=== PATIENT | female | born 1965 | race Caucasian/White ===

== ENCOUNTER 2017-08-03 09:55 | Outpatient (RCR) | payer OTHER, SELFPAY ==
--- NOTE | 2017-08-03 11:09 | HP.PTEVAL_ITS ---
Patient's Visit Information RAMSEY RODRIGUEZ is a 52 year old F referred to Physical Therapy by MD QUITA Mcfadden with a diagnosis of SCIATICA. Date of Evaluation: 08/03/17 Physical Therapist: Sapna Redman - Visit Plan Frequency: 2-3x /Week Duration: 4-6 Weeks Plan: AQUATIC THERAPY. POSTURE CORRECTION/STRENGTHENING, INSTRUCTION IN APPROPRIATE BODY MECHANICS AND ACTIVITY MODIFICATIONS. DLS STARTING WITH A NEUTRAL SPINE PROGRESSING ROM TOLERATED. DAKOTA LE ROM, STRETCHING AND STRENGTHENING. HEP INSTRUCTION. - Subjective Subjective: Work/Leisure: UNEMPLOYEED. HAS NEVER REALLY HAD A JOB. Disability : NO. Present symptoms: DAKOTA LOW BACK, DAKOTA HIPS, DAKOTA THIGHS, DAKOTA LEGS AND DAKOTA FOOT PAIN. ALSO NUMBNESS AND TINGLING IN THE LE'S. Present since: CHRONIC LOW BACK PAIN WITH LEG SX'S STARTING ABOUT A YEAR AGO. Pain Scale: WORST 10/10 , LEAST 5/10. Currently: 810. Commenced as a result of: NO APPARENT REASON FOR LOW BACK BUT LOWER LEG AND FOOT SX'S STARTED WITH CHEMOTHERAPY AROUND 2014. Symptoms at onset: LOW BACK. Worse: PATIENT ISN'T SURE. Better: GABAPENTEN. Disturbed sleep: YES. Previous history/Previous treatment: NO BACK SURGERY. NO INJECTIONS. PT HERE FOR RIGHT SCIATICA INI THE PAST. LONG HISTORY OF CHIROPRACTIC TREATMENTS SINCE AT LEAST 2014. Coughing/sneezing/ straining: NEGATIVE. Gait: DIFFICULTY WITH GAIT DUE TO PAIN BUT NOT USING ANY ASSISTIVE DEVICES CURRENTLY. Difficulty initiating urinatin: NO. Accidents: FALLS 2014 AND SEPTEMBER 2016 - NO FRACTURES. Unexplained weight loss: NO. Imaging: LUMBAR X-RAY - DDD ESPECIALLY AT L5S1. PMH: NIDDM - NOT CONTROLLED CURRENTLY. UTERINE CANCER 2014 TREATED WITH SURGERY, RADIATION AND CHEMOTHERAPY. CURRENTLY CANCER FREE FAR PATIENT KNOWS FROM HER LAST CAT SCAN. HTN. CORTISONE INJECTION TO LEFT SHOULDER 2016. NEUROPATHY. DEPRESSION /ANXIETY? OTHER: LIVES WITH AND TWO SON'S THAT ARE 24 AND 28 YEARS OLD. PATIENT REPORTS SHE TRIED WATER PT BEFORE BUT AT THE TIME SHE COULDN'T FINISH BECAUSE IT WAS JUST TOO MUCH FOR HER AFTER THE CANCER TREATMENTS. SHE STATES SHE THINKS SHE COULD TOLERATE IT BETTER NOW BUT IS AFRAID OF IT BEING TOO TIRING. SOCIAL: HAS NOT BEEN ABLE TO GET HER GED. CAN READ AND WRITE. - Objective Sitting Posture: POOR. Standing Posture: POOR. Lordosis: REDUCED. Lateral shift: NO. Relevant shift: N/A. Active Correction of posture: NE. Other Observations: SLOW ANTALGIC INDEP GAIT INTO PT WITHOUT ANY ASSISTIVE DEVICES. UNABLE TO TRANSFER FROM SIT TO STAND WITHOUT UE ASSIST. PATIENT REPORTS SHE HAS A 4 WHEELED WALKER IN THE CAR TO USE NEEDED. PATIENT IS ONLY ABLE TO SLS ON EACH LEG FOR ABOUT 5 SEC WITHOUT UE ASSIST. Motor deficit: DAKOTA LE'S GROSSLY 4-/5 WITH MMT. Sensory deficit: DAKOTA LE LIGHT TOUCH SENSATION APPEARS INTACT AND SYMMETRICAL BUT FEET NT. NEUROPATHY. ROM deficit: DAKOTA LE'S WFL. Reflexes: UNABLE TO ELICIT DAKOTA LE DTR'S. Dural Signs: NEGATIVE. Lumbar mvmt loss: flex - MOD. ext - MOD. R SG - CRUZ. L SG - CRUZ. PATIENT HAS C/O BACK AND LEG PAIN THROUGHOUT TESTING BUT NOTHING ACUTELY INCREASES IT. Core strength: POOR. Palpation: MILD TENDERNESS WITH PALPATION OF LOWER LUMBAR SPINE. - Goals Goal 1:: DECREASE C/O LBP Goal Time Frame: 4-6 Weeks Goal 2:: IMPROVE BENDING, SITTING, STANDING, WALKING, LIFTING, ADL AND SLEEP FUNCTION Goal Time Frame: 4-6 Weeks Goal 3:: INSTRUCT IN PROPHYLAXIS Goal Time Frame: 4-6 Weeks - Rehabilitation Potential Rehabilitation Potential: Fair - Anticipated Interventions Patient/Client Instruction: Educate patient on: Condition, Plan of Care, Risk Factors, Benefits of Fitness Program For the Purpose of:: To improve self management Therapeutic Exercise to Include: Strength training, Balance training, Body mechanics, Postural training, Flexibilty training, In an aquatic setting, Dynamic Lumbar Stabilization For the Purpose of:: To improve ability of physical actions for home/community/ work/leisure Thank you for the opportunity to evaluate your patient. For Medicare and Medicare HMO plans, please review the plan of care and approve it. It will need to be FAXED BACK to us at [phone] for Medicare purposes. Please let me know if there are questions or concerns regarding this plan of care. Physician Signature: Date:
--- NOTE | 2017-09-20 09:55 | HP.PTDCNRP_ITS ---
HP - Discharge Summary (1) - Patient Information RAMSEY RODRIGUEZ was seen in my office for initial evaluation on 08/03/17. The following Plan of Care was established for this patient: Initial Frequency: 2-3x /Week Initial Duration: 4-6 Weeks - Anticipated Interventions Patient/Client Instruction: Educate patient on: Condition, Plan of Care, Risk Factors, Benefits of Fitness Program For the Purpose of:: To improve self management Therapeutic Exercise to Include: Strength training, Balance training, Body mechanics, Postural training, Flexibilty training, In an aquatic setting, Dynamic Lumbar Stabilization For the Purpose of:: To improve ability of physical actions for home/community/ work/leisure This patient was last seen in our office 08/03/17. Pertinent comments regarding their Physical therapy will appear below: This patient has not returned to Physical Therapy and is appropriate to return to MD for further follow-up as needed. At this point I will be discontinuing this patient from physical therapy. I would be happy to see this patient again in the future if found appropriate by the physician. Thank you! Sapna Redman
== END 2017-08-03 19:00 | disposition home or self-care (01) ==
LOC: PT 09:55
PROVIDERS: Family Provider Internal Medicine; PCP Internal Medicine; Visit Provider Internal Medicine
DX: M54.30 Sciatica, unspecified side (principal)
CPT/HCPCS: 97162; 97530

== ENCOUNTER → 2017-12-08 11:16 | Outpatient (CLI) | payer OTHER, SELFPAY ==
[2017-12-08 12:19] LABS: Microalbumin,Random Urine 8.9 mg/L (NO RANGE EST.); Microalbumin:Creatinine Ratio 5.8 mg/g CRE (<30 mg/g CRE)
[2017-12-08 12:23] LABS: Cholesterol 174 mg/dL (200); High Density Lipoprotein 46 mg/dL; Triglycerides 96 mg/dL; Very Low Density Lipoprotein 19 mg/dL (5-40)
[2017-12-08 12:28] LABS: Hemoglobin A1c 8.5 % (4.2-6.3)
== END ==
LOC: LAB 11:21
PROVIDERS: Family Provider Internal Medicine; PCP Internal Medicine; Visit Provider Internal Medicine
DX: E11.69 Type 2 diabetes mellitus with other specified complication (principal); E66.9 Obesity, unspecified
CPT/HCPCS: 36415; 80061; 82043; 82570; 83036

== ENCOUNTER → 2018-01-04 12:24 | Outpatient (CLI) | payer OTHER, SELFPAY ==
--- NOTE | 2018-01-04 12:30 | RAD_ITS ---
STUDY: X-RAY CHEST REASON FOR EXAM: Female, 52 years old. Pain in the chest. TECHNIQUE: Frontal and lateral views of the chest. COMPARISON: None. FINDINGS: Elevated right hemidiaphragm. Lungs otherwise normal volume. Lungs are clear. No infiltrates or effusions. Normal size heart. Normal mediastinum and jennifer. Normal visualized pulmonary arteries. Normal visualized aortic arch and descending thoracic aorta. The visualized bones and joints show degenerative changes. There is no demonstrated abnormality of the visualized soft tissue structures of the upper abdomen. RAD/Chest PA and Lateral IMPRESSION: Normal x-ray examination of the chest. Electronically Signed: Russel Kay MD at 13:52 EDT , Service support ,
== END ==
PROVIDERS: Family Provider Internal Medicine; PCP Internal Medicine; Visit Provider Obstetrics & Gynecology
DX: M19.90 Unspecified osteoarthritis, unspecified site (principal)
CPT/HCPCS: 71046

== ENCOUNTER → 2018-01-17 08:05 | Outpatient (CLI) | payer OTHER, SELFPAY ==
--- NOTE | 2018-01-17 08:06 | BI_ITS ---
MAMMOGRAPHY - BILATERAL SCREENING REASON FOR EXAM: Female, 52 years old. Routine annual screening examination. PERTINENT HISTORY: Aunt with breast cancer. Occasional axillary pain. TECHNIQUE: Digital bilateral breast zainab (3D mammographic acquisition) in the CC and MLO projections. 2-D mediolateral oblique (MLO) and craniocaudad (CC) views of both breasts were obtained. CAD: Full Field Digital Mammography with Computer Added Detection was performed. COMPARISON: Comparison is made with prior outside examination dated September 30, 2016. FINDINGS: Breast Composition: The breasts are almost entirely fatty. There are no dominant masses or suspicious calcifications. Stable appearance of the benign appearing bilateral axillary lymph nodes. No other significant abnormalities are identified. There has been no significant change since the prior study. BI/SCREENING MAMM (CAD), BILAT IMPRESSION: Stable bilateral screening mammogram. Yearly follow-up mammogram recommended. (A) ASSESSMENT CATEGORY: BIRADS Category 2: Benign. A letter regarding these results will be sent to the patient by the facility within 30 days. Approximately 10% of breast cancers are not detected by mammography. A normal mammogram should not delay biopsy of a clinically suspicious abnormality. [id number] Electronically Signed: Rogers Harkins MD at 10:45 EDT Tel [phone], Service support ,
== END ==
PROVIDERS: Family Provider Internal Medicine; PCP Internal Medicine; Visit Provider Obstetrics & Gynecology
DX: Z12.31 Encounter for screening mammogram for malignant neoplasm of breast (principal)
CPT/HCPCS: 77063; 77067

== ENCOUNTER → 2018-02-16 08:01 | Outpatient (CLI) | payer OTHER, SELFPAY ==
--- NOTE | 2018-02-16 08:03 | VDLE_ITS ---
Reason For Study: Bilateral leg swelling and pain, varicose veins. RIGHT LEFT GSV is normal. GSV is normal. CFV is compressible, spontaneous, phasic, CFV is compressible, spontaneous, phasic, competent and demonstrates normal competent, and demonstrates normal augmentation. augmentation. FV is compressible, spontaneous, phasic, FV is compressible, spontaneous, phasic, competent and demonstrates normal competent and demonstrates normal augmentation. augmentation. POP V is compressible, spontaneous, phasic, POP V is compressible, spontaneous, phasic, competent and demonstrates normal competent and demonstrates normal augmentation. augmentation. T/P Trunk is compressible. T/P Trunk is compressible. PTV is compressible. PTV is compressible. RT PerV is compressible. LT PerV is compressible. Varocosities are compressible. Varocosities are compressible. Procedure Exam performed in department. The exam was diagnostic. A preliminary report was called and/or faxed to Jorge Rodriguez - MELE @ [phone] @ 9 am. Interpretation Summary Deep veins of the lower extremities are bilaterally patent and compressible segmentally. There is no evidence of deep vein thrombosis on either side. Valvular competence appears intact within the proximal deep venous systems bilaterally. The greater saphenous veins appear bilaterally patent and compressible segmentally. Compressible varicosities are noted in the lower extremities bilaterally. Ordering Physician: Jorge Rodriguez Referring Physician: Naomie Clarke Performed By: Candy Summers, ANTHONYCS, RVT
== END ==
LOC: CVS 08:01
PROVIDERS: Family Provider Internal Medicine; PCP Internal Medicine; Visit Provider Nurse Practitioner Family
DX: I89.0 Lymphedema, not elsewhere classified (principal); I83.813 Varicose veins of bilateral lower extremities with pain; R09.89 Other specified symptoms and signs involving the circulatory and respiratory systems
CPT/HCPCS: 93922; 93970

== ENCOUNTER → 2018-04-10 08:14 | Outpatient (CLI) | payer MEDICAID, SELFPAY ==
[2018-04-10 11:42] LABS: Hemoglobin A1c 7.1 % (4.2-6.3)
[2018-04-10 12:13] LABS: Anion Gap 11 (5-15); BUN 12 mg/dL (7-18); BUN/Creat Ratio 21.5 RATIO (10-20); Calcium,Total 9.2 mg/dL (8.5-10.1); Chloride 96 mmol/L (98-107); Creatinine, Serum 0.56 mg/dL (0.55-1.02); EST Glomerular Filtration Rate 121 mL/min (>60); Est Glom Filt Rate - Afr Amer 146 mL/min (>60); Glucose 99 mg/dL (74-106); Potassium 3.4 mmol/L (3.5-5.1); Sodium Level 138 mmol/L (136-145)
== END ==
PROVIDERS: Family Provider Internal Medicine; PCP Internal Medicine; Visit Provider Internal Medicine
DX: I10 Essential (primary) hypertension (principal); E11.9 Type 2 diabetes mellitus without complications
CPT/HCPCS: 36415; 80048; 83036

== ENCOUNTER 2018-09-11 08:10 | Day surgery (SDC) | payer MEDICAID, SELFPAY ==
[2018-06-26 11:24] VITALS: BMI 30.7
[2018-09-11 08:32] VITALS: BP 142/92; PULSE 87; RESP 14; TEMP 37.2; O2SAT 100; BMI 31.2
[2018-09-11 08:57] LABS: Bedside Glucose 128 mg/dL (70-110)
--- NOTE | 2018-09-11 09:05 | H&P.OPEN ---
History of Present Illness Date of Admission: 09/11/18 The patient is a 53 year old F here for screening colonoscopy. She has never had a screening colonoscopy in the past. She reports that she does have a history of uterine cancer. She does not have any family history of colon cancer. She does not report any abdominal pain or blood in her stool. She has had no weight loss. Past Medical/Surgical History - Planned Operation Planned Operative Procedure/s: CSCOPE OPEN ACCESS Date of Operative Procedure: 09/11/18 Permit Signed: No S.O.S: No Is This Patient Having a Total Joint: No - Previous Hospitalizations/Surgeries HX Hospitalizations: No HX of Surgeries: HYSTERECTOMY 2014. D&C X2 Any Problems With Anesthesia: No You/Your Family Experience Fever (Hyperthermia) With Anes: No Cholinesterase deficiency: No - Cardiovascular Hx Chest Pain within Last 2 months: No Hx of Irregular Heartbeat and/or Afib: No Hx Heart Attack: No Hx Congestive Heart Failure: No Hx Rheumatic Fever: No Hx Hypertension: Yes - NO BP MEDS SINCE 03/2018. STARTED ON ENALIPRIL FOR KDINEY PROCTECTION Hx Internal Defibrillator: No Hx Pacemaker: No Hx Cardiac Catheterization: No Hx Cardiac Surgery/Stents/Etc.: No Hx Stress Test: No HX Edema: Yes - RIGHT ANKLE PRN Hx Pain in Legs when Walking/Leg Cramps: Yes - NEUROPATHY FEET - Respiratory Chronic Cough: No HX of Shortness of Breath: No - UNABLE TO WALK STAIRS/SOB WITH EXERTION Hoarseness: No Hx Chronic Obstructive Pulmonary Disease (COPD): No Hx Asthma: No Hx Emphysema: No Hx Sleep Apnea: No Hx Oxygen Use at Home: No Hx Respiratory Tract Infection/Cold (presently): No Do You Snore Loudly (louder than talking or can be heard): No Do You Often Feel Tired/ Fatigued/ Sleepy Dring Daytime?: Yes Has Anyone Observed You Stop Breathing During Sleep?: No Result (for STOP score): Positive Hx Smoking: No Smoking Status: Never smoker - Gastrointestinal Hx Gastroesophageal Reflux: No Hx Gastrointestinal Disorders: No Hx Gastrointestinal Bleed: No Hx Ulcer: No Hx Hiatal Hernia: No Difficulty Chewing/Swallowing: No Recent Onset of Swallowing Problems: No Special diet followed at home: Yes - ADA Hx Unplanned Weight Loss of 20#: No HX Unplanned Weight Gain of 20#: No - Neurological Hx Seizures: No HX Syncope/Blackout Spells/Unconsciousness: Yes - 09/2016 FELL AND LOC. RECENT SYNCOPE WITH HYPOTENSION Hx CVA/Stroke: No Hx Transient Ischemic Attacks (TIA): No Hx Multiple Sclerosis: No Hx Parkinson's Disease: No Hx Head/Neck Injury: No Hx Headaches: Yes - OCC SINCE CHEMO Hx Back Injury/Pain: Yes - OCC BACK PAIN/STATES UNSTEADY GAIT/BALANCE ISSUES AT TIMES Recent Onset of Speech Difficulty: No - STUTTERING Restless Legs: No Does patient have nerve stimulator: No Patient instructed to have device shut off: No Rep notified?: No - Blood Disorder Hx Leukemia: No Bleeding Tendencies: No Hx Deep Vein Thrombosis: No Hx High Cholesterol: No Blood Transmitted Disease: No Hx Hepatitis: No Hx Cirrhosis: No Hx Anemia: No Hx Blood Disorders: No - Reproduction : No Is Patient Lactating: No Hx Hysterectomy: Yes Hx Tubal Ligation: No Are You Post Menopause: No - Genitourinary Hx Renal Disease: No Hx Dialysis: No - Musculoskeletal Hx Arthritis: Yes Hx Rheumatoid Arthritis: No Hx Gout: No Recent Onset of an Orthopedic Problem: No - Endocrine Hx Diabetes: Yes Insulin: No Thyroid Disease: No Hx Steroid Therapy: No - Psycho/Social Hx Substance Use: No Hx Alcohol Use: No Hx Anxiety: Yes - NO MED Hx Depression: Yes - NO MED Hx Dementia: No - Miscellaneous Hx Cancer: Yes - ovarian/CHEMO LAST 2015/RADIATION Recent Exposure to Contagious Disease: No Active MRSA: No Hx of C-Diff: No Any Loose Teeth: No Additional information pertinent to anesthesia:: . Allergies No Known Allergies Allergy (Verified 06/26/18 11:21) - Discharge Is Pt Admitted From a Halfway, or a Assisted: No Who Could Help: FAMILY After D/C, Where Do you Plan to Go: Return Home - Physical Exam General: Alert, Oriented x3 Lungs: Normal air movement Cardiovascular: Regular rate Abdomen: Soft, Non Tender, Non-Distended Vital Signs Temp Pulse Resp BP Pulse Ox 98.9 F 87 14 142/92 H 100 09/11/18 08:32 09/11/18 08:32 09/11/18 08:32 09/11/18 08:32 09/11/18 08:32 Oxygen Delivery Method Room Air Weight: 193 lb 12.581 oz Body Mass Index (BMI) 31.2 POC Glucose 09/11/18 08:42 POC Glucose 128 H Assessment/Plan All Active Problems (Last Reviewed 06/26/18 @ 11:23 by Aurelia Hurst) Folliculitis (Acute) 53-year-old female for screening colonoscopy I explained endoscopy in detail to the patient. I explained the risks including but not limited to stroke or heart attack with anesthesia, perforation of the GI tract, bleeding, infection. I explained that any of these could necessitate further emergency surgery. The patient understands and all questions were answered sufficiently. The patient wishes to proceed with procedure. Kana Braun MD Pager: [facility] [address] [place] [address], [address] [place] [address] Office: Surgery Risks - Colonoscopy Risks Include but are not Limited To: Risks include but are not limited to: Bleeding, perforation requiring further surgery, inability to complete colonoscopy requiring barium enema.
[2018-09-11 09:45] VITALS: BP 119/76; BP 142/92; PULSE 83; RESP 16; TEMP 36.2; O2SAT 96
--- NOTE | 2018-09-11 09:45 | OP.ENDO_ITS ---
Patient Name: Joyce Quick Procedure Date: 09/11/2018 9:14 AM Date of : 1965 Age: 53 Procedure: Colonoscopy Indications: Screening for colorectal malignant neoplasm Providers: Kana Braun MD Medicines: Monitored Anesthesia Care Patient Profile: This is a 53 year old female. Refer to note in patient chart for documentation of history and physical. Last Colonoscopy: none. The patient's first colonoscopy is today. Complications: No immediate complications. Estimated blood loss: None. Procedure: Pre-Anesthesia Assessment: - Prior to the procedure, a History and Physical was performed, and patient medications and allergies were reviewed. The patient's tolerance of previous anesthesia was also reviewed. The risks and benefits of the procedure and the sedation options and risks were discussed with the patient. All questions were answered, and informed consent was obtained. Prior Anticoagulants: The patient has taken no previous anticoagulant or antiplatelet agents. ASA Grade Assessment: I - A normal, healthy patient. After reviewing the risks and benefits, the patient was deemed in satisfactory condition to undergo the procedure. After I obtained informed consent, the scope was passed under direct vision. Throughout the procedure, the patient's blood pressure, pulse, and oxygen saturations were monitored continuously. The pediatric colonoscope was introduced through the anus and advanced to the cecum, identified by appendiceal orifice and ileocecal valve. The colonoscopy was performed without difficulty. The patient tolerated the procedure well. The quality of the bowel preparation was good. Scope In: 9:24:53 AM Scope Withdrawal Time 0 hours 6 minutes 8 seconds Scope Out: 9:39:33 AM Total Procedure Duration Time 0 hours 14 minutes 40 seconds Findings: The exam was otherwise without abnormality on direct and retroflexion views. There was some post-radiation changes of the rectum. Impression: - The examination was otherwise normal on direct and retroflexion views. - No specimens collected. Recommendation: - Discharge patient to home. - Resume previous diet. - Continue present medications. - Repeat colonoscopy in 10 years for screening purposes. Procedure Code(s): --- Professional --- G0121, Colorectal cancer screening; colonoscopy on individual not meeting criteria for high risk Diagnosis Code(s): --- Professional --- Z12.11, Encounter for screening for malignant neoplasm of colon CPT copyright 2017 [employer]. All rights reserved. The codes documented in this report are preliminary and upon awning frame maker review may be revised to meet current compliance requirements. Kana Braun MD 09/11/2018 9:45:03 AM This report has been signed electronically. Number of Addenda: 0 Note Initiated On: 09/11/2018 9:14 AM
[2018-09-11 09:50] VITALS: BP 124/85; BP 142/92; PULSE 88; RESP 16; O2SAT 99
[2018-09-11 09:55] VITALS: BP 131/82; BP 142/92; PULSE 84; RESP 16; O2SAT 98
[2018-09-11 10:00] VITALS: BP 137/86; BP 142/92; PULSE 81; RESP 16; TEMP 36.3; O2SAT 97
[2018-09-11 10:51] VITALS: BP 142/92
== END 2018-09-11 10:51 | disposition home or self-care (01) ==
LOC: EN 08:11 → AC 08:12
PROVIDERS: Family Provider Family Medicine; PCP Family Medicine; Referring Provider Surgery; Visit Provider Surgery
PROC: 0DJD8ZZ Inspection of Lower Intestinal Tract, Via Natural or Artificial Opening Endoscopic (ICD-10-PCS; CPT 45378; principal; 2018-09-11 08:55)
DX: Z12.11 Encounter for screening for malignant neoplasm of colon (principal); I10 Essential (primary) hypertension; F41.9 Anxiety disorder, unspecified; F32.9 Major depressive disorder, single episode, unspecified; E11.40 Type 2 diabetes mellitus with diabetic neuropathy, unspecified; Z85.42 Personal history of malignant neoplasm of other parts of uterus; Z92.21 Personal history of antineoplastic chemotherapy; Z92.3 Personal history of irradiation; Z79.84 Long term (current) use of oral hypoglycemic drugs; Z79.899 Other long term (current) drug therapy
CPT/HCPCS: 45378; 82962; J7120

== ENCOUNTER → 2018-11-20 | Outpatient (CLI) | payer MEDICAID, SELFPAY ==
[2018-10-02 16:09] VITALS: BMI 31.1
[2018-11-20 12:22] LABS: Hematocrit 41.1 % (37-47); Hemoglobin 13.8 g/dl (12.0-15.0); Mean Corp Hgb Conc 33.6 g/gl (32-36); Mean Corpuscular Hgb 31.9 pg (27.0-32.0); Mean Corpuscular Volume 94.9 fL (81-99); Mean Platelet Vol. 10.1 fl (6.2-12.0); Platelet Count 244 K/mm3 (150-450); RBC Distribution Width CV 11.8 % (11.6-14.6); Red Blood Count 4.33 M/mm3 (4.2-5.4); White Blood Count 3.3 K/mm3 (4.4-11.0)
[2018-11-20 12:28] LABS: Scan Indicated on CBC? Y/N NO
[2018-11-20 13:22] LABS: BUN 13 mg/dL (7-18); Creatinine, Serum 0.59 mg/dL (0.55-1.02); EST Glomerular Filtration Rate 113 mL/min (>60); Est Glom Filt Rate - Afr Amer 137 mL/min (>60); Glucose 179 mg/dL (74-106)
[2018-11-20 13:23] LABS: AST(SGOT) 20 U/L (15-37); Alanine Aminotransfer ALT/SGPT 42 U/L (13-56); Albumin, Serum 3.6 g/dL (3.2-5.0); Alkaline Phosphatase 82 U/L (45-117); Anion Gap 8 (5-15); Calcium,Total 8.7 mg/dL (8.5-10.1); Chloride 102 mmol/L (98-107); Free T3 2.6 pg/mL (2.18-3.98); Globulin 3.6 g/dL (2.2-4.2); Potassium 3.9 mmol/L (3.5-5.1); Protein, Total 7.2 g/dL (6.4-8.2); Sodium Level 141 mmol/L (136-145); T4 Free Direct 0.98 ng/dL (0.76-1.46); Thyroid Stim Hormone (TSH) 0.83 uIU/mL (0.358-3.74)
[2018-11-20 14:04] LABS: Hemoglobin A1c 8.4 % (4.2-6.3)
[2018-11-20 17:50] LABS: Vitamin B12 1207 pg/mL (211-911)
== END | disposition home or self-care (01) ==
PROVIDERS: Family Provider Internal Medicine; PCP Internal Medicine
DX: R53.83 Other fatigue (principal); G62.9 Polyneuropathy, unspecified
CPT/HCPCS: 36415; 80053; 82306; 82533; 82607; 83036; 84439; 84443; 84481; 85027

== ENCOUNTER → 2019-02-19 | Outpatient (CLI) | payer MEDICAID, SELFPAY ==
[2019-02-19 13:44] VITALS: BMI 31.1
== END | disposition home or self-care (01) ==
LOC: LABSPEC 17:08
PROVIDERS: Family Provider Internal Medicine; PCP Internal Medicine; Referring Provider Obstetrics & Gynecology; Visit Provider Obstetrics & Gynecology
DX: R35.0 Frequency of micturition (principal)
CPT/HCPCS: 87086

== ENCOUNTER 2019-02-20 10:00 | Outpatient (RCR) | payer MEDICAID, SELFPAY ==
[2018-10-02 16:09] VITALS: BMI 31.1
--- NOTE | 2018-12-19 10:41 | HP.PTEVAL ---
Patient's Visit Information RAMSEY RODRIGUEZ is a 53 year old F referred to Physical Therapy by ORLANDO Jalloh with a diagnosis of neck pain and Neuropathy. Date of Evaluation: 12/19/18 Physical Therapist: Jason Shepard PT, ATC - Visit Plan Frequency: 2-3x /Week Duration: 4-6 Weeks Plan: Aquatic therapy consisting of UE and LE strengthening, L/S stab ex's, and scapular stab ex's - Subjective Findings: Pt reports she has been sore for a chronic period of time. Pt reports she has burning and tingling in her LE's secondary to peripheral nueropathy. Pt reports she also has neck pain which is chronic in nature and has been being treated by a chiropractor for a lot of Rx's. Pt reports she had no significant benefit with thiese Rx's. Pt reports she has had neck x rays which revealed arthritis throughout. Pt reports sleep difficulty secondary to LE neuropathy. Pt reports most of her neuropathy is a secondary result from chemotherapy that she had back in 2014 secondary to cancer. - Pain legs and neck Pain Intensity (Out of 10): 6 Pain Intensity Range: 9 - Objective Neuro: B UE and LE sensation is WNL to light touch. All reflexes 1/3 this date. MMT: B UE's and LE's are grossly 4-/5 throughout. Gait: Pt is able to ambulate 340' with CGAx1 until fatigued and needing to sit down. Pt often reaches for railing and hanna to aid with balance - Goals Goal 1:: decrease neck and LE pain x 50% to aid with sleep Goal Time Frame: 4-6 Weeks Goal 2:: Increase UE and LE strength x 1 grade to aid with IADL's Goal Time Frame: 4-6 Weeks Goal 3:: Pt will be able to ambulate 1000' to aid with community ambulation Goal Time Frame: 4-6 Weeks Goal 4:: I with HEP Goal Time Frame: 4-6 Weeks - Rehabilitation Potential Physical Therapy Diagnosis: Pt has neck and lE pain, weakness, and is limited with gait secondary to degenerative changes throughout Rehabilitation Potential: Good - Anticipated Interventions Patient/Client Instruction: Educate patient on: Condition, Plan of Care For the Purpose of:: To improve self management Therapeutic Exercise to Include: Strength training, Endurance training, Flexibilty training, In an aquatic setting, Dynamic Lumbar Stabilization, Scapular Strength/Stabilization For the Purpose of:: To decrease pain, To improve muscle performance and motor function, To improve gait and locomotor functions Thank you for the opportunity to evaluate your patient. For Medicare and Medicare HMO plans, please review the plan of care and approve it. It will need to be FAXED BACK to us at [phone] for Medicare purposes. For Medicare only, by signing this I certify the plan of care. Please let me know if there are questions or concerns regarding this plan of care. Physician Signature: Date:
== END 2019-02-20 19:00 | disposition home or self-care (01) ==
LOC: PT 10:00
PROVIDERS: Family Provider Internal Medicine; PCP Internal Medicine; Referring Provider Nurse Practitioner Primary Care; Visit Provider Nurse Practitioner Primary Care
DX: G62.0 Drug-induced polyneuropathy (principal); T45.1X5D Adverse effect of antineoplastic and immunosuppressive drugs, subsequent encounter
CPT/HCPCS: 97113; 97161; 97530

== ENCOUNTER → 2019-02-25 14:28 | Outpatient (CLI) | payer MEDICAID, SELFPAY ==
[2019-02-19 13:44] VITALS: BMI 31.1
--- NOTE | 2019-02-25 14:33 | CT_ITS ---
HISTORY: FREQUENT URINATION, HX-ENDOMETRIAL AND UTERINE CA WITH CHEMO AND RAD TX, HTN, DB, SURG-D Tamp; C, HYSTER ADDITIONAL HISTORY: None provided. TECHNIQUE: CT images were obtained of the abdomen and pelvis with 100 ml of Isovue 300 IV contrast. Enteric contrast was given. A radiation dose optimization technique was used for this scan. Number of images including paperwork: [id number] COMPARISON: None FINDINGS: LOWER THORAX: No consolidation or pleural effusion. Minimal basilar atelectasis. Mild right hemidiaphragm elevation. Coronary calcification. LIVER: 1.3 cm hypodense left lobe lesion GALLBLADDER: No radiopaque calculi. BILE DUCTS: No significant biliary dilatation. SPLEEN: Unremarkable. PANCREAS: Unremarkable. ADRENAL GLANDS: Unremarkable. KIDNEYS/URETERS: Unremarkable. BOWEL: No bowel obstruction. No significant bowel wall thickening. No localized inflammation. APPENDIX: Normal. FREE FLUID: No significant free fluid. FREE AIR: None. LYMPH NODES: No pathologic appearing adenopathy. PERITONEUM, RETROPERITONEUM AND MESENTERY: Otherwise unremarkable. VASCULATURE: Unremarkable as imaged. PELVIS: Not well distended but grossly unremarkable bladder. Hysterectomy. ABDOMINAL WALL: Unremarkable. OSSEOUS AND SOFT TISSUE STRUCTURES: No acute skeletal findings. Degenerative changes. CT/Abdomen/Pelvis WITH Contrast IMPRESSION: 1. No acute abdominopelvic abnormality. 2. Status post hysterectomy. No pelvic mass or adenopathy. 3. Well-defined hypodense left lobe liver lesion, too small to definitively characterize but suggestive of a cyst. Individualized dose optimization techniques were used for this CT. at [id number] Reported and signed by: Aurelia Baldwin MD Electronically Signed: Aurelia Baldwin MD at 23:25 EDT Tel , Service support ,
[2019-02-25 14:46] LABS: CREATININE FINGERSTICK < 0.6 mg/dL (0.55-1.02); EGFR FINGERSTICK > 60.0000 mL/min (>60)
== END ==
PROVIDERS: Family Provider Internal Medicine; PCP Internal Medicine; Referring Provider Obstetrics & Gynecology; Visit Provider Obstetrics & Gynecology
DX: R10.2 Pelvic and perineal pain (principal)
CPT/HCPCS: 74177; Q9967; A4216

== ENCOUNTER → 2019-02-28 | Outpatient (CLI) | payer MEDICAID, SELFPAY ==
[2019-02-19 13:44] VITALS: BMI 31.1
--- NOTE | 2019-02-28 15:09 | BI_ITS ---
MAMMOGRAPHY - BILATERAL SCREENING REASON FOR EXAM: Female, 54 years old. Routine annual screening examination. PERTINENT HISTORY: Aunt with breast cancer. History of ovarian cancer. TECHNIQUE: Digital bilateral breast saira (3D mammographic acquisition) in the CC and MLO projections. 2-D mediolateral oblique (MLO) and craniocaudad (CC) views of both breasts were obtained. CAD: Full Field Digital Mammography with Computer Added Detection was performed. COMPARISON: Comparison is made with prior study dated January 17, 2018. FINDINGS: Breast Composition: The breasts are almost entirely fatty. There are no dominant masses or suspicious calcifications. No other significant abnormalities are identified. There has been no significant change since the prior study. BI/SCREEN MAMM (CAD) W/SAIRA BILAT IMPRESSION: Stable bilateral screening mammogram. Yearly follow-up mammogram recommended. (A) ASSESSMENT CATEGORY: BIRADS Category 1: Negative. A letter regarding these results will be sent to the patient by the facility within 30 days. Approximately 10% of breast cancers are not detected by mammography. A normal mammogram should not delay biopsy of a clinically suspicious abnormality. [id number] Electronically Signed: Rogers Harkins, at 9:00 EDT , Service support ,
== END | disposition home or self-care (01) ==
LOC: OPBI 15:08
PROVIDERS: Family Provider Internal Medicine; PCP Internal Medicine; Referring Provider Obstetrics & Gynecology; Visit Provider Obstetrics & Gynecology
DX: Z12.31 Encounter for screening mammogram for malignant neoplasm of breast (principal)
CPT/HCPCS: 77063; 77067

== ENCOUNTER → 2019-03-19 | Outpatient (CLI) | payer MEDICAID, SELFPAY ==
[2019-03-19 10:15] VITALS: BMI 33.9
[2019-03-19 12:39] LABS: Microalbumin,Random Urine 11.5 mg/L (NO RANGE EST.)
[2019-03-19 12:45] LABS: Cholesterol 186 mg/dL (200); High Density Lipoprotein 49 mg/dL; Triglycerides 97 mg/dL; Very Low Density Lipoprotein 19 mg/dL (5-40)
== END | disposition home or self-care (01) ==
LOC: BIMLAB 10:59
PROVIDERS: Family Provider Internal Medicine; PCP Internal Medicine; Visit Provider Internal Medicine
DX: E11.9 Type 2 diabetes mellitus without complications (principal)
CPT/HCPCS: 36415; 80061; 82043; 82570

== ENCOUNTER 2019-04-11 13:32 | Outpatient (RCR) | payer MEDICAID, SELFPAY ==
[2019-03-19 10:15] VITALS: BMI 33.9
== END 2019-04-22 23:59 ==
LOC: DC 13:32
PROVIDERS: Family Provider Internal Medicine; PCP Internal Medicine; Visit Provider Internal Medicine
DX: E11.9 Type 2 diabetes mellitus without complications (principal); Z71.3 Dietary counseling and surveillance
CPT/HCPCS: 97802

== ENCOUNTER 2019-04-29 12:20 | Outpatient (RCR) | payer MEDICAID, SELFPAY ==
[2019-03-19 10:15] VITALS: BMI 33.9
== END 2019-04-29 23:59 | disposition home or self-care (01) ==
LOC: DC 12:20
PROVIDERS: Family Provider Internal Medicine; PCP Internal Medicine; Visit Provider Internal Medicine
DX: Z71.3 Dietary counseling and surveillance (principal); E11.9 Type 2 diabetes mellitus without complications
CPT/HCPCS: 97803

== ENCOUNTER 2019-05-14 10:30 | Outpatient (RCR) | payer MEDICAID, SELFPAY ==
[2019-03-19 10:15] VITALS: BMI 33.9
--- NOTE | 2019-04-08 13:58 | HP.PTEVAL_ITS ---
Patient's Visit Information RAMSEY RODRIGUEZ is a 54 year old F referred to Physical Therapy by Naomie Clarke MD with a diagnosis of unsteady gait.. Date of Evaluation: 04/08/19 Physical Therapist: Royal Callejas DPT, OCS, CSCS - Visit Plan Frequency: 2x /Week Duration: 4-6 Weeks Plan: Neuroco balance assessment. then 2x/week for balance ex liekly weight shift adn vestibualr and gym program to I for LE and postural strength if patient desires. - Subjective Findings: Has DM. Has neuropathy adn is effecting her balance. Has some tingling in feet. Had chemo in June of 2015, for Uterine Cancer. Fell in September of 2014 and hit head on porch because R leg felt wierd. No cane or walke but has both. Needs to hod on to shopping cart when shopping. Trips in kitchen a few times last year and hit back. Not employed. Works out in yard. LB can hurt if she does too much. Basic ADLs are OK. Has steps at home and she does not like them as they are challenging. Exercises : no. Spends day doing housework. Not spinning dizzyness. - Objective Pt seems very anxious and near tears even with short walks and conversations regarding her compliance with exercises. Walks slow and neuropathic avoiding push off. Short steps, little weight shift. Trasnfers I with UE. Stairs prefers L due to pain in R knee and needs handrails. Sensation LE to gross light touch is poor. reflexes 0/3 patella adn achilles. coordination to reciprocal toe and heel tap is mod deficits. Itno7folb andkles 4/5 adn knees 4/5 adn hips 4- ext adn abd and 4 flexion. Very weak and feels labored to move. AROM WFL in ankles and knees and to neutral hip extension. - Balance Scores Functional Gait Assessment Score: 21 % Disability: 30.0000 CATSIB Score (Max score 120 seconds): 120 - Goals Goal 1:: 25/30 FGA to diminish fallr isk Goal Time Frame: 4-6 Weeks Goal 2:: I approp HEP to maximize future potential Goal Time Frame: 4-6 Weeks Goal 3:: Pain LE 3/10 at worst and 50% improved knees down. Goal Time Frame: 4-6 Weeks - Rehabilitation Potential Physical Therapy Diagnosis: Unsteady gait liekly due to neuropathy. Rehabilitation Potential: Questionable - Anticipated Interventions Patient/Client Instruction: Educate patient on: Condition, Plan of Care, Risk Factors For the Purpose of:: To improve gait and locomotor functions Therapeutic Exercise to Include: Strength training, Balance training, Coordination, Gait and locomotor training For the Purpose of:: To improve balance, To improve safety Thank you for the opportunity to evaluate your patient. For Medicare and Medicare HMO plans, please review the plan of care and approve it. It will need to be FAXED BACK to us at [phone] for Medicare purposes. For Medicare only, by signing this I certify the plan of care. Please let me know if there are questions or concerns regarding this plan of care. Physician Signature: Date:
--- NOTE | 2019-04-16 11:54 | HP.PTCOM ---
PT Communication Note 04/16/[address] Naomie Clarke MD , Thank you fro the referral of Joyce to [facility] for balance assessment. I have enclosed her results for your review. In summation, she scored low on excursion and reaction time on her Limits of Stability Test. She scored latent on motor control test. She appears scared, possibly from previous falls, to shift her weight adn has overall anxiety regarding her balance. With these results in mind, I plan to see her 2x/week for 4 weeks for postural adn LE strength, confidence with gait and balance exercises per these results. Please let me know if questions arise regarding her PT. Sincerely, Royal Callejas, DPT, OCS, CSCS Contact Information
--- NOTE | 2019-05-14 10:56 | HP.PTDCSUM_ITS ---
HP - PT D/C Summary It has been my pleasure to treat RAMSEY RODRIGUEZ under orders from Naomie Clarke MD, for the diagnosis of unsteady gait. for a total of 8 visit(s). Discharge Date: 05/14/19 Please see the following information for a summary of their discharge status. - Subjective Subjective: Head hurts but legs did not wake her up last night. Tried to see pain doctor yesterday but they don't take her insurance. Will see Dr. Clarke next week. No falls lately. Feels slightly better overall steadiness baca. Hard to tell how much better. Legs feel about the same overall. Doesn't feel any steadier than she says. Uses cane most of time but hard to keep up with granddaughters adn sometimes holds on to family. - Pain both leg pain Pain Intensity (Out of 10): 4 VILLATORO Pain Intensity (Out of 10): 4 - Overall Improvement % Improvement: 1 - Objective Objective/Function: FGA is a couple points better adn not bad considering her n europathy. Pain seems to be a bigger issue adn she will talk with doctor about that next week. - Goals Goal 1:: 25/30 FGA to diminish fallr isk Goal Progress: Progressing Goal 2:: I approp HEP to maximize future potential Goal Progress: pool Goal 3:: Pain LE 3/10 at worst and 50% improved knees down. Goal Progress: Not Progressing - Plan Plan: d/c, pt to continue workout on her own. Will be questionable with compliance. - D/C Information Discharge Comments: Pt to bubba workout as member I and written instruct given, motivation is fair today, compliance will be questionable. If there are questions or concerns regarding this patient's physical therapy, please feel free to call me at [phone]. Thank you for the referral of this patient. Sincerely, Royal Callejas, DPT, OCS, CSCS
== END 2019-05-14 19:00 | disposition home or self-care (01) ==
LOC: PT 10:30
PROVIDERS: Family Provider Internal Medicine; PCP Internal Medicine; Visit Provider Internal Medicine
DX: R26.81 Unsteadiness on feet (principal)
CPT/HCPCS: 97110; 97162; 97530; 97750

== ENCOUNTER → 2019-06-18 11:56 | Outpatient (CLI) | payer MEDICAID, SELFPAY ==
[2019-06-18 11:18] VITALS: BMI 33.9
[2019-06-18 13:03] LABS: Microalbumin,Random Urine 7.8 mg/L (NO RANGE EST.); Microalbumin:Creatinine Ratio 8.1 mg/g CRE (<30 mg/g CRE)
[2019-06-18 13:17] LABS: Anion Gap 8 (5-15); BUN 13 mg/dL (7-18); BUN/Creat Ratio 21.2 RATIO (10-20); Chloride 106 mmol/L (98-107); Creatinine, Serum 0.61 mg/dL (0.55-1.02); EST Glomerular Filtration Rate 108 mL/min (>60); Est Glom Filt Rate - Afr Amer 130 mL/min (>60); Glucose 193 mg/dL (74-106); Potassium 4.2 mmol/L (3.5-5.1); Sodium Level 140 mmol/L (136-145)
== END ==
PROVIDERS: Family Provider Internal Medicine; PCP Internal Medicine; Visit Provider Internal Medicine
DX: E11.9 Type 2 diabetes mellitus without complications (principal)
CPT/HCPCS: 36415; 80048; 82043; 82570

== ENCOUNTER → 2019-09-11 11:54 | Outpatient (CLI) | payer MEDICAID, SELFPAY ==
[2019-09-11 11:13] VITALS: BMI 33.9
[2019-09-12 15:41] LABS: Cancer Antigen 125 12.8 U/mL (0.0-38.1)
== END ==
PROVIDERS: PCP Internal Medicine; Referring Provider Obstetrics & Gynecology; Visit Provider Obstetrics & Gynecology
DX: Z85.42 Personal history of malignant neoplasm of other parts of uterus (principal); Z91.89 Other specified personal risk factors, not elsewhere classified
CPT/HCPCS: 36415; 86304

== ENCOUNTER → 2019-12-26 10:35 | Outpatient (CLI) | payer MEDICAID, SELFPAY ==
[2019-12-20 13:24] VITALS: BMI 35.2
[2019-12-26 12:48] LABS: AST(SGOT) 27 U/L (15-37); Alanine Aminotransfer ALT/SGPT 60 U/L (13-56); Albumin, Serum 3.8 g/dL (3.2-5.0); Alkaline Phosphatase 51 U/L (45-117); Anion Gap 8 (5-15); BUN 13 mg/dL (7-18); BUN/Creat Ratio 20.5 RATIO (10-20); Calcium,Total 8.9 mg/dL (8.5-10.1); Chloride 104 mmol/L (98-107); Creatinine, Serum 0.63 mg/dL (0.55-1.02); EST Glomerular Filtration Rate 104 mL/min (>60); Est Glom Filt Rate - Afr Amer 125 mL/min (>60); Globulin 3.7 g/dL (2.2-4.2); Glucose 143 mg/dL (74-106); Potassium 4.1 mmol/L (3.5-5.1); Protein, Total 7.5 g/dL (6.4-8.2); Sodium Level 139 mmol/L (136-145)
[2019-12-26 12:57] LABS: Hemoglobin A1c 7.7 % (3.8-5.6)
[2019-12-26 13:11] LABS: Microalbumin,Random Urine < 5.0 mg/L (NO RANGE EST.)
== END ==
PROVIDERS: PCP Internal Medicine; Referring Provider Internal Medicine; Visit Provider Internal Medicine
DX: E11.9 Type 2 diabetes mellitus without complications (principal); I10 Essential (primary) hypertension
CPT/HCPCS: 36415; 80053; 82043; 82570; 83036

== ENCOUNTER 2020-02-01 19:18 | Emergency (ER) | payer MEDICAID, SELFPAY ==
[2020-01-07 11:29] VITALS: BMI 33.9
[2020-02-01 19:19] VITALS: BP 162/99; PULSE 90; RESP 16; TEMP 36.6; O2SAT 98; BMI 33.9
--- NOTE | 2020-02-01 19:30 | ED.VIS.GEN ---
History of Present Illness Chief Complaint: Ear Problem Informant: Patient Past Medical History - Allergies and Home Meds Allergies/Adverse Reactions: Allergies No Known Allergies Allergy (Verified 02/01/20 19:21) Primary Care Physician: Naomie Clarke MD [Primary Care Provider] - Smoking Status: Never smoker Physical Exam Vital Signs/Narrative: Vital Signs Temp Pulse Resp BP Pulse Ox 02/01/20 19:19 98 F 90 16 162/99 H 98 ED Disposition - Plan for ED Patient: Disposition: Home or Assisted Living Diagnosis: Dental caries, Dental infection Instructions: ED [facility] Dental Referrals: Naomie Clarke MD [Primary Care Provider] -
--- NOTE | 2020-02-01 19:34 | ED.VIS.GEN ---
History of Present Illness Chief Complaint: Ear Problem Informant: Patient Narrative: She presents with concern for possible ear pain although she is pointing to an area at the top of her jaw adjacent to her right maxillary jawline. She states she does not have pain specifically in her ear. She has actually concerned that she has a dental infection that is making the pain radiate to this area. She states that she called her dentist and was not able to get in today. She could not get into her primary care provider. She has not had a fever. She has no difficulty swallowing or breathing. Past Medical History - Allergies and Home Meds Allergies/Adverse Reactions: Allergies No Known Allergies Allergy (Verified 02/01/20 19:21) Primary Care Physician: Naomie Clarke MD [Primary Care Provider] - Prior records reviewed: Yes - Diabetes, hypertension, Sciatica, neuropathy uterine cancer Surgical History: - - D&C, hysterectomy Lives: Spouse/ Significant Other Smoking Status: Never smoker Alcohol: None Drugs: None Review of Systems General: Denies: Chills, Fever Eyes: Denies: Visual changes - bilaterally, Diplopia ENT: Reports: Right ear pain, - - Dull pain Cardiovascular: Denies: Chest pain, Palpitations Musculoskeletal: Denies: Myalgias Skin: Denies: Rash, Abscess Neurological: Denies: Headache Physical Exam Vital Signs/Narrative: Vital Signs Temp Pulse Resp BP Pulse Ox 02/01/20 19:19 98 F 90 16 162/99 H 98 Inital Vital Signs reviewed: Yes General: Well nourished, Well developed, No Acute Distress Head: Normocephalic, Atraumatic Eyes: Perrl, EOMI ENT: Moist mucous membranes, - - Patient is partially edentulous. There is 1 tooth on the right upper maxillary area which appears to have severe dental caries and is tender to palpation. No sublingual edema. Tongue is not swollen. Patient tolerating her own secretions. Neck: Supple, Nontender, No lymphadenopathy Cardiovascular: Regular rate, Regular rhythm Respiratory: No distress, CTA bilaterally Skin: Normal color, No rash Neurological: Alert, Oriented x3 Psychological: Normal affect Diagnostic/Tx/Re-eval - Medical Decision Making Presents with what she is concerned for his ear pain but appears to have a dental infection. There is no red flag signs or symptoms. Her right ear appears normal. I will start her on Augmentin for her tooth. She is going to follow-up with her dentist. She is given return precautions. She stable for discharge at this time. ED Disposition - Plan for ED Patient: Disposition: Home or Assisted Living Diagnosis: Dental caries, Dental infection Instructions: ED [facility] Dental Prescriptions: Amox/Clavulanate Tablet [Augmentin Tablet] 875 mg PO Q12H #20 tab Prescription Printed Referrals: Naomie Clarke MD [Primary Care Provider] -
== END 2020-02-01 19:43 | disposition home or self-care (01) ==
LOC: ED 19:39
PROVIDERS: Emergency Provider Student in an Organized Health Care Education/Training Program; PCP Internal Medicine
DX: K04.7 Periapical abscess without sinus (principal); K02.9 Dental caries, unspecified; I10 Essential (primary) hypertension; E11.40 Type 2 diabetes mellitus with diabetic neuropathy, unspecified; Z85.42 Personal history of malignant neoplasm of other parts of uterus; Z79.4 Long term (current) use of insulin; Z79.84 Long term (current) use of oral hypoglycemic drugs; Z79.899 Other long term (current) drug therapy
CPT/HCPCS: 99282

== ENCOUNTER → 2020-03-02 15:21 | Outpatient (CLI) | payer MEDICAID, SELFPAY ==
[2020-02-07 10:58] VITALS: BMI 33.9
[2020-03-02 15:47] LABS: Hematocrit 44.6 % (37-47); Hemoglobin 14.8 g/dL (12.0-15.0); Mean Corp Hgb Conc 33.2 g/dL (32-36); Mean Corpuscular Hgb 33.2 pg (27.0-32.0); Platelet Count 285 K/mm3 (150-450); RBC Distribution Width CV 11.9 % (11.6-14.6); RBC Distribution Width SD 43.8 fl (35.1-43.9); Red Blood Count 4.46 M/mm3 (4.2-5.4)
[2020-03-02 16:10] LABS: Hemoglobin A1c 6.5 % (3.8-5.6)
== END ==
PROVIDERS: PCP Student in an Organized Health Care Education/Training Program; Referring Provider Student in an Organized Health Care Education/Training Program; Visit Provider Student in an Organized Health Care Education/Training Program
DX: E11.9 Type 2 diabetes mellitus without complications (principal); M79.602 Pain in left arm; Z76.89 Persons encountering health services in other specified circumstances; K08.89 Other specified disorders of teeth and supporting structures; R60.0 Localized edema
CPT/HCPCS: 36415; 83036; 85027

== ENCOUNTER → 2020-03-09 12:39 | Outpatient (CLI) | payer MEDICAID, SELFPAY ==
[2020-03-09 11:32] VITALS: BMI 33.9
== END ==
PROVIDERS: PCP Student in an Organized Health Care Education/Training Program; Referring Provider Obstetrics & Gynecology; Visit Provider Obstetrics & Gynecology
DX: Z11.3 Encounter for screening for infections with a predominantly sexual mode of transmission (principal)
CPT/HCPCS: 36415; 86695; 86696

== ENCOUNTER → 2020-03-09 17:02 | Outpatient (CLI) | payer MEDICAID, SELFPAY ==
[2020-03-03 11:59] VITALS: BMI 33.9
[2020-03-09 11:32] VITALS: BMI 33.9
== END ==
PROVIDERS: PCP Student in an Organized Health Care Education/Training Program; Referring Provider Obstetrics & Gynecology; Visit Provider Obstetrics & Gynecology
DX: N89.8 Other specified noninflammatory disorders of vagina (principal); R76.8 Other specified abnormal immunological findings in serum; M79.602 Pain in left arm; Z11.3 Encounter for screening for infections with a predominantly sexual mode of transmission
CPT/HCPCS: 36415; 86695; 86696; 87070; 87077; 87205

== ENCOUNTER → 2020-03-17 10:40 | Outpatient (CLI) | payer MEDICAID, SELFPAY ==
[2020-03-09 11:32] VITALS: BMI 33.9
--- NOTE | 2020-03-17 10:40 | BI_ITS ---
MAMMOGRAPHY - BILATERAL SCREENING REASON FOR EXAM: Female, 55 years old. Routine annual screening examination. PERTINENT HISTORY: Aunt with breast cancer. TECHNIQUE: Digital bilateral breast saira (3D mammographic acquisition) in the CC and MLO projections. 2-D mediolateral oblique (MLO) and craniocaudad (CC) views of both breasts were obtained. CAD: Full Field Digital Mammography with Computer Added Detection was performed. COMPARISON: Comparison is made with prior study dated 02/28/2019 and 01/17/2018. FINDINGS: Breast Composition: The breasts are almost entirely fatty. There are no dominant masses or suspicious calcifications. No other significant abnormalities are identified. There has been no significant change since the prior study. BI/SCREEN MAMM (CAD) W/SAIRA BILAT IMPRESSION: Stable bilateral screening mammogram. Yearly follow-up mammogram recommended. (A) ASSESSMENT CATEGORY: BIRADS Category 1: Negative. A letter regarding these results will be sent to the patient by the facility within 30 days. Approximately 10% of breast cancers are not detected by mammography. A normal mammogram should not delay biopsy of a clinically suspicious abnormality. [id number] Electronically Signed: Rogers Harkins, at 12:53 EDT , Service support ,
--- NOTE | 2020-03-17 11:12 | VDUE_ITS ---
Reason For Study: Arm edema Right Proximal Left Proximal Right jugular vein is spontaneous, widely Left jugular vein is spontaneous, widely patent, phasic, with no intraluminal patent, phasic, with no intraluminal echogenicity noted. echogenicity noted. Right subclavian vein is spontaneous, widely Left subclavian vein is spontaneous, widely patent, phasic, with no intraluminal patent, phasic, with no intraluminal echogenicity noted. echogenicity noted. Right Lower Arm Left Arm Right radial vein is compressible. Left axillary vein is spontaneous, patent, Right ulnar vein is compressible. phasic, competent, compressible and Right Arm demonstrates augmentation. Right axillary vein is spontaneous, patent, Left brachial vein is compressible. phasic, competent, compressible and Left cephalic vein is compressible. demonstrates augmentation. Left basilic vein is compressible. Right brachial vein is compressible. Left Lower Arm Right cephalic vein is compressible. Left radial vein is compressible. Right basilic vein is compressible. Left ulnar vein is compressible. Interpretation Summary Deep veins of the upper extremities are bilaterally patent and compressible segmentally. There is no evidence of deep vein thrombosis on either side. The superficial veins of the upper extremities, the basilic and cephalic veins, are patent and compressible bilaterally. There is no evidence of acute superficial thrombophlebitis on either side involving the veins imaged. Ordering Physician: Errol Peck Referring Physician: Errol Peck Performed By: Abby Decker RVT ?
== END ==
PROVIDERS: PCP Student in an Organized Health Care Education/Training Program; Referring Provider Obstetrics & Gynecology; Visit Provider Obstetrics & Gynecology
DX: R60.0 Localized edema (principal); Z12.31 Encounter for screening mammogram for malignant neoplasm of breast
CPT/HCPCS: 77063; 77067; 93970

== ENCOUNTER → 2020-06-29 | Outpatient (CLI) | payer MEDICAID, SELFPAY ==
[2020-06-29 16:07] VITALS: BMI 30.3
== END | disposition home or self-care (01) ==
LOC: LABSPEC 18:11
PROVIDERS: PCP Student in an Organized Health Care Education/Training Program; Visit Provider Physician Assistant Surgical
DX: U07.1 COVID-19 (principal)
CPT/HCPCS: 87635; U0003

== ENCOUNTER → 2020-08-25 11:04 | Outpatient (CLI) | payer MEDICAID, SELFPAY ==
[2020-08-24 13:14] VITALS: BMI 31.3
[2020-08-25 15:18] LABS: Absolute Lymphocyte Count 0.85 X10^3/uL (0.83-4.51); Absolute Neutrophil Count 1.8 X10^3/uL (2.0-7.7); Basophil# 0.04 X10^3/uL; Basophil% 1.3 % (0-1); Eosinophil# 0.05 X10^3/uL; Eosinophils% 1.7 % (0-5); Hematocrit 40.4 % (37-47); Hemoglobin 13.2 g/dL (12.0-15.0); Lymphocyte # 0.85 X10^3/ul (4.0); Lymphocyte % 28.4 % (19-41); Mean Corp Hgb Conc 32.7 g/dL (32-36); Mean Corpuscular Hgb 32.3 pg (27.0-32.0); Mean Corpuscular Volume 98.8 fL (81-99); Mean Platelet Vol. 10.6 fl (6.2-12.0); Monocyte# 0.28 X10^3/uL; Monocyte% 9.4 % (0-10); NRBC Flagged by Analyzer 0 % (0-5); Neutrophil # 1.76 X10^3/uL (2.7-7.7); Neutrophil % 58.9 % (47-70); Platelet Count 271 K/mm3 (150-450); RBC Distribution Width CV 11.7 % (11.6-14.6); RBC Distribution Width SD 42.8 fl (35.1-43.9); Red Blood Count 4.09 M/mm3 (4.2-5.4)
[2020-08-25 15:36] LABS: Vitamin B12 351 pg/mL (211-911); Vitamin D,25 Hydroxy 51.6 ng/mL
[2020-08-25 15:46] LABS: Hemoglobin A1c 6.9 % (3.8-5.6)
[2020-08-25 15:56] LABS: AST(SGOT) 21 U/L (15-37); Alanine Aminotransfer ALT/SGPT 35 U/L (13-56); Albumin, Serum 3.8 g/dL (3.2-5.0); Alkaline Phosphatase 67 U/L (45-117); Anion Gap 9 (5-15); BUN 25 mg/dL (7-18); BUN/Creat Ratio 42.4 RATIO (10-20); Chloride 101 mmol/L (98-107); Cholesterol 191 mg/dL (200); Creatinine, Serum 0.59 mg/dL (0.55-1.02); EST Glomerular Filtration Rate 112 mL/min (>60); Est Glom Filt Rate - Afr Amer 136 mL/min (>60); Free T3 2.5 pg/mL (2.18-3.98); Globulin 3.9 g/dL (2.2-4.2); Glucose 117 mg/dL (74-106); High Density Lipoprotein 60 mg/dL; Potassium 4.2 mmol/L (3.5-5.1); Protein, Total 7.7 g/dL (6.4-8.2); Sodium Level 136 mmol/L (136-145); T4 Free Direct 1.06 ng/dL (0.76-1.46); Thyroid Stim Hormone (TSH) 0.83 uIU/mL (0.358-3.74); Triglycerides 70 mg/dL; Very Low Density Lipoprotein 14 mg/dL (5-40)
== END ==
PROVIDERS: PCP Internal Medicine; Referring Provider Internal Medicine; Visit Provider Internal Medicine
DX: E11.9 Type 2 diabetes mellitus without complications (principal); E78.2 Mixed hyperlipidemia; G89.29 Other chronic pain; I10 Essential (primary) hypertension; M54.9 Dorsalgia, unspecified; M99.03 Segmental and somatic dysfunction of lumbar region; Z20.828 Contact with and (suspected) exposure to other viral communicable diseases
CPT/HCPCS: 36415; 80053; 80061; 82306; 82607; 83036; 84439; 84443; 84481; 85025

== ENCOUNTER 2020-09-03 11:04 | Outpatient (RCR) | payer MEDICAID, SELFPAY ==
[2020-08-24 13:14] VITALS: BMI 31.3
--- NOTE | 2020-09-03 13:00 | HP.PTEVAL ---
Patient's Visit Information RAMSEY RODRIGUEZ is a 55 year old F referred to Physical Therapy by Dr. Dulce Cee MD with a diagnosis of DORSALGIA; CHRONIC PAIN; LUMBAR DD; OA; SOMATIC OF LUMBAR, CERV, THORACIC. Date of Evaluation: 09/03/20 Physical Therapist: Waylon Vogel, PT, Cert MDT, OCS - Visit Plan Frequency: 2x /Week Duration: 4 Weeks Plan: 2xs/week for 4 weeks per POC. PT Interventions: Lumbar AROM, core stabilization, LE strengthening, UE strengthening, Cervical AROM, balance/proprioception, postural training, endurance. - Subjective This 55 y/o female presents to physical therapy with chronic low back pain likely due to Arthritis. Aggravating factors: Pushing, bending forward, standing, sitting, speech/language therapist. Reports pain in low back can be sharp or dull. Pain travels into B LE; radicular symptoms worse on R. Pain wakes her up at night. Reports numbness and tingling in B LE (diabetic). States she has been going to the Chiropractor. Previously tried aquatics and land therapy; reports they did not help. Hx of Arthritis, diabetes. Negotiates stairs with step to pattern. Reports she has fallen due to B LE neuropathy; expresses she has no fallen since April 2020. Vocation: not working. Social: Lives with Son - Pain Bilateral Back Pain Intensity (Out of 10): 6 Pain Intensity Range: 10 - Objective Lumbar AROM: Flexion 75%, ext 50%, R sidebend 75%, L sidebend 75%, R rotation 50%, L rotation 50%. Cervical AROM: Flexion WFL, ext 75%, R sidebend 25%, L sidebend 25%, R rotation 75%, L rotation 75%. UE MMT: R shoulder flexion 4-/5, abd 4+/5, biceps 5/5, IR 4-/5, ER 4-/5. L shoulder flexion 4/5, abd 4+/5, biceps 5/5, IR 4/5, ER 4/4. LE MMT: R hip flexion 4/5, quad 4+/5, hams 4+/5, DF 5/5, PF 5/5. L hip flexion 4+/5, quad 4+/5, hams 4+/5, DF 5/5, PF 5/5. Sensation: Intact to light touch in B LE. Posture: Increased thoracic kyphosis, forward head. Palpation: Unremarkable. Joint mobility lumbar: WFL. Joint mobility thoracic: WFL. Gait: WFL. 90/90: Mild limitation bilaterally - Special Tests L/S Slump test left side: Negative L/S Slump test right side: Positive L/S Left Straight Leg Raise: Positive L/S Right Straight Leg Raise: Negative - Goals Goal 1:: Patient will demonstrate independence with HEP. Goal Time Frame: 4-6 Weeks Goal 2:: Patient will demonstrate LE strength of 4+/5 for improved functional strength and stair negotiation. Goal Time Frame: 4-6 Weeks Goal 3:: Patient will demonstrate UE of 4/5 for improved ADLs and speech/language therapist. Goal Time Frame: 4-6 Weeks Goal 4:: Patient will demonstrate Lumbar AROM to > 50 % limitation for improved functional mobility. Goal Time Frame: 4-6 Weeks Goal 5:: Patient will demonstrate cervical AROM to > 25 % limitation for improved functional mobility. Goal Time Frame: 4-6 Weeks Goal 6:: Patient will improve Oswestry (back) score by 5 or > points for improved QOL. Goal Time Frame: 4-6 Weeks - Rehabilitation Potential Physical Therapy Diagnosis: Patient is a 55 year old female presenting to the clinic with chronic low back pain with radicular symptoms into R LE. Patient demonstrates decreased lumbar AROM, LE and UE weakness that does not follow myotomal pattern, decreased cervical AROM. Rehabilitation Potential: Fair - Anticipated Interventions Patient/Client Instruction: Educate patient on: Condition, Plan of Care, Benefits of Fitness Program For the Purpose of:: To decrease pain, To increase ROM, To improve nutrient delivery to tissue, To improve muscle performance and motor function, To improve ability to perform ADL's, To increase tolerance to activity/condition/position, To improve performance and independence with ADL's, To improve ability of physical actions for home/community/work/leisure, To increase flexibility/ROM, To improve endurance, To improve balance, To assume or resume ADL's, To improve health and function, To improve self management, To improve ability to perform tasks related to life management, To improve tolerance to ADL's Therapeutic Exercise to Include: Strength training, Endurance training, Balance training, Body mechanics, Postural training, Flexibilty training, Active ROM, Scapular Strength/Stabilization Comment: LE/UE strengthening, Postural training, core stabilization For the Purpose of:: To decrease pain, To increase ROM, To improve muscle performance and motor function, To improve ability to perform ADL's, To increase tolerance to activity/condition/position, To improve performance and independence with ADL's, To improve ability of physical actions for home/community/work/leisure, To increase flexibility/ROM, To improve endurance, To improve balance, To assume or resume ADL's, To improve health and function, To improve self management, To improve ability to perform tasks related to life management, To improve tolerance to ADL's IF ES: Yes Other electric stimulation: Yes Cryotherapy (ice pack, ice massage): Yes Thermo therapy (hot pack): Yes For the Purpose of:: To decrease pain, To increase ROM, To improve muscle performance and motor function, To improve ability to perform ADL's, To increase tolerance to activity/condition/position, To improve ability of physical actions for home/community/work/leisure, To increase flexibility/ROM, To improve endurance, To improve balance, To assume or resume ADL's, To improve health and function, To improve self management, To improve ability to perform tasks related to life management, To improve tolerance to ADL's Thank you for the opportunity to evaluate your patient. For Medicare and Medicare HMO plans, please review the plan of care and approve it. It will need to be FAXED BACK to us at [phone] for Medicare purposes. For Medicare only, by signing this I certify the plan of care. Please let me know if there are questions or concerns regarding this plan of care. Physician Signature: Date:
--- NOTE | 2021-03-08 17:54 | HP.PT.NRP ---
RAMSEY RODRIGUEZ was seen in my office for initial evaluation on 09/03/20. The following Plan of Care was established for this patient: Initial Frequency: 2x /Week Initial Duration: 4 Weeks Patient/Client Instruction: Educate patient on: Condition, Plan of Care, Benefits of Fitness Program For the Purpose of:: To decrease pain, To increase ROM, To improve nutrient delivery to tissue, To improve muscle performance and motor function, To improve ability to perform ADL's, To increase tolerance to activity/condition/position, To improve performance and independence with ADL's, To improve ability of physical actions for home/community/work/leisure, To increase flexibility/ROM, To improve endurance, To improve balance, To assume or resume ADL's, To improve health and function, To improve self management, To improve ability to perform tasks related to life management, To improve tolerance to ADL's Therapeutic Exercise to Include: Strength training, Endurance training, Balance training, Body mechanics, Postural training, Flexibilty training, Active ROM, Scapular Strength/Stabilization For the Purpose of:: To decrease pain, To increase ROM, To improve muscle performance and motor function, To improve ability to perform ADL's, To increase tolerance to activity/condition/position, To improve performance and independence with ADL's, To improve ability of physical actions for home/community/work/leisure, To increase flexibility/ROM, To improve endurance, To improve balance, To assume or resume ADL's, To improve health and function, To improve self management, To improve ability to perform tasks related to life management, To improve tolerance to ADL's IF ES: Yes Other electric stimulation: Yes Cryotherapy (ice pack, ice massage): Yes Thermo therapy (hot pack): Yes For the Purpose of:: To decrease pain, To increase ROM, To improve muscle performance and motor function, To improve ability to perform ADL's, To increase tolerance to activity/condition/position, To improve ability of physical actions for home/community/work/leisure, To increase flexibility/ROM, To improve endurance, To improve balance, To assume or resume ADL's, To improve health and function, To improve self management, To improve ability to perform tasks related to life management, To improve tolerance to ADL's This patient was last seen in our office . Pertinent comments regarding their Physical therapy will appear below: Patient seen for PT EVAL for back pain for HEP. At this point I will be discontinuing this patient from physical therapy. I would be happy to see this patient again in the future if found appropriate by the physician. Thank you! Waylon Vogel PT, Cert MDT, OCS Balance/Gait/Functional tests - Balance/Special Test Scores Oswestry Low Back Score: 27
== END 2020-09-03 19:00 | disposition home or self-care (01) ==
LOC: PT 11:04
PROVIDERS: PCP Internal Medicine; Referring Provider Internal Medicine; Visit Provider Internal Medicine
DX: M99.03 Segmental and somatic dysfunction of lumbar region (principal); G89.29 Other chronic pain; M51.36 Other intervertebral disc degeneration, lumbar region; M99.02 Segmental and somatic dysfunction of thoracic region; M99.01 Segmental and somatic dysfunction of cervical region; M19.90 Unspecified osteoarthritis, unspecified site
CPT/HCPCS: 97110; 97162

== ENCOUNTER → 2021-01-05 11:46 | Outpatient (CLI) | payer MEDICAID, SELFPAY ==
[2020-12-22 15:33] VITALS: BMI 33.9
[2021-01-05 15:30] LABS: Hemoglobin A1c 8.6 % (3.8-5.6)
[2021-01-05 15:31] LABS: Microalbumin,Random Urine 11.4 mg/L (NO RANGE EST.); Microalbumin:Creatinine Ratio 9.9 mg/g CRE (<30 mg/g CRE)
== END ==
PROVIDERS: PCP Internal Medicine; Referring Provider Internal Medicine; Visit Provider Internal Medicine
DX: E11.9 Type 2 diabetes mellitus without complications (principal)
CPT/HCPCS: 36415; 82043; 82570; 83036

== ENCOUNTER 2021-02-09 15:30 | Outpatient (RCR) | payer MEDICAID, SELFPAY ==
[2021-01-12 14:22] VITALS: BMI 33.9
== END 2021-02-20 23:59 ==
LOC: DC 15:30
PROVIDERS: PCP Internal Medicine; Visit Provider Nurse Practitioner Adult Health
DX: E11.9 Type 2 diabetes mellitus without complications (principal)
CPT/HCPCS: 97802; G0108

== ENCOUNTER → 2021-02-11 | Outpatient (CLI) | payer MEDICAID, SELFPAY ==
[2021-02-10 16:41] VITALS: BMI 32.9
[2021-02-11 08:54] LABS: Bacteria 0 SEEN /hpf (None Seen); Mucous, Urine 0 SEEN /hpf (<or=2+); Red Blood Cells-Urine 0 SEEN /hpf (0-5); Squamous Epithelial Cells - UA 0 SEEN /hpf (5-10); White Blood Cells 0 SEEN /hpf (0-5)
[2021-02-11 12:30] LABS: Color, Urine Yellow (Yellow); Glucose, Dipstick 50 mg/dl (Normal); Ketone-Dipstick Negative (Negative); Leukocyte Esterase-Dipstick Negative /ul (Negative); Nitrite-Dipstick Negative (Negative); Occult Blood-Urine Negative /ul (Negative); Protein-Dipstick Negative (Negative); Urine Bilirubin Dipstick Negative (Negative); Urine Clarity Clear (Clear); Urine Urobilinogen Normal (Normal)
== END | disposition home or self-care (01) ==
LOC: LABSPEC 08:52
PROVIDERS: PCP Internal Medicine; Referring Provider Internal Medicine; Visit Provider Internal Medicine
DX: R35.0 Frequency of micturition (principal)
CPT/HCPCS: 81001

== ENCOUNTER → 2021-03-19 13:42 | Outpatient (CLI) | payer MEDICAID, SELFPAY ==
[2021-02-10 16:41] VITALS: BMI 32.9
--- NOTE | 2021-03-19 14:00 | BI_ITS ---
MAMMOGRAPHY - BILATERAL SCREENING REASON FOR EXAM: Female, 56 years old. Routine annual screening examination. PERTINENT HISTORY: Aunt with breast cancer. TECHNIQUE: Digital bilateral breast saira (3D mammographic acquisition) in the CC and MLO projections. 2-D mediolateral oblique (MLO) and craniocaudad (CC) views of both breasts were obtained. CAD: Full Field Digital Mammography with Computer Added Detection was performed. COMPARISON: Comparison is made with prior examination of 03/17/2020 and 02/28/2019. FINDINGS: Breast Composition: The breasts are almost entirely fatty. There are no dominant masses or suspicious calcifications. No other significant abnormalities are identified. There has been no significant change since the prior study. BI/SCRN MAMM (CAD)W/SAIRA BILAT IMPRESSION: Stable bilateral screening mammogram. Yearly follow-up mammogram recommended. (A) ASSESSMENT CATEGORY: BIRADS Category 1: Negative. A letter regarding these results will be sent to the patient by the facility within 30 days. Approximately 10% of breast cancers are not detected by mammography. A normal mammogram should not delay biopsy of a clinically suspicious abnormality. [id number] Electronically Signed: Rogers Harkins MD at 15:02 EDT , Service support ,
== END ==
PROVIDERS: PCP Internal Medicine; Referring Provider Obstetrics & Gynecology; Visit Provider Obstetrics & Gynecology
DX: Z12.31 Encounter for screening mammogram for malignant neoplasm of breast (principal)
CPT/HCPCS: 77063; 77067

== ENCOUNTER 2021-03-22 15:15 | Outpatient (RCR) | payer MEDICAID, SELFPAY ==
[2021-02-10 16:41] VITALS: BMI 32.9
== END 2021-03-23 23:59 ==
LOC: DC 15:15
PROVIDERS: PCP Internal Medicine; Visit Provider Nurse Practitioner Adult Health
DX: E11.9 Type 2 diabetes mellitus without complications (principal)
CPT/HCPCS: 97803; G0108

== ENCOUNTER → 2021-03-25 15:23 | Outpatient (CLI) | payer MEDICAID, SELFPAY ==
[2021-03-25 17:03] LABS: Absolute Lymphocyte Count 1.11 X10^3/uL (0.83-4.51); Absolute Neutrophil Count 2.9 X10^3/uL (2.0-7.7); Basophil# 0.05 X10^3/uL; Basophil% 1.1 % (0-1); Eosinophil# 0.07 X10^3/uL; Eosinophils% 1.5 % (0-5); Hematocrit 41.4 % (37-47); Lymphocyte # 1.11 X10^3/ul (0.83-4.51); Lymphocyte % 24.2 % (19-41); Mean Corp Hgb Conc 33.8 g/dL (32-36); Mean Corpuscular Hgb 32.6 pg (27.0-32.0); Mean Corpuscular Volume 96.5 fL (81-99); Mean Platelet Vol. 11.2 fl (6.2-12.0); Monocyte# 0.41 X10^3/uL; Monocyte% 8.9 % (0-10); NRBC Flagged by Analyzer 0 % (0-5); Neutrophil # 2.94 X10^3/uL (2.7-7.7); Neutrophil % 64.1 % (47-70); Platelet Count 262 K/mm3 (150-450); RBC Distribution Width CV 11.8 % (11.6-14.6); RBC Distribution Width SD 41.5 fl (35.1-43.9); Red Blood Count 4.29 M/mm3 (4.2-5.4); White Blood Count 4.6 K/mm3 (4.4-11.0)
[2021-03-25 17:15] LABS: ALB/GLOB Ratio 1.1 RATIO (0.9-2.4); AST(SGOT) 25 U/L (15-37); Alanine Aminotransfer ALT/SGPT 43 U/L (13-56); Alkaline Phosphatase 62 U/L (45-117); Anion Gap 6 (5-15); BUN 20 mg/dL (7-18); BUN/Creat Ratio 32.7 RATIO (10-20); Calcium,Total 9.1 mg/dL (8.5-10.1); Chloride 103 mmol/L (98-107); Creatinine, Serum 0.61 mg/dL (0.55-1.02); EST Glomerular Filtration Rate 108 mL/min (>60); Est Glom Filt Rate - Afr Amer 130 mL/min (>60); Globulin 3.7 g/dL (2.2-4.2); Glucose 126 mg/dL (74-106); Potassium 4.2 mmol/L (3.5-5.1); Protein, Total 7.7 g/dL (6.4-8.2); Sodium Level 137 mmol/L (136-145)
[2021-03-25 17:28] LABS: Cholesterol 127 mg/dL (200); High Density Lipoprotein 47 mg/dL; Triglycerides 125 mg/dL; Very Low Density Lipoprotein 25 mg/dL (5-40)
[2021-03-25 17:46] LABS: Hemoglobin A1c 6.7 % (3.8-5.6)
== END ==
PROVIDERS: PCP Internal Medicine; Referring Provider Internal Medicine; Visit Provider Internal Medicine
DX: Z00.00 Encounter for general adult medical examination without abnormal findings (principal); E11.9 Type 2 diabetes mellitus without complications
CPT/HCPCS: 36415; 80053; 80061; 83036; 85025

== ENCOUNTER 2021-04-15 16:30 | Outpatient (RCR) | payer MEDICAID, SELFPAY ==
[2021-03-24 00:40] VITALS: BMI 32.9
== END 2021-04-22 23:59 ==
LOC: DC 16:30
PROVIDERS: PCP Internal Medicine; Visit Provider Nurse Practitioner Adult Health
DX: E11.9 Type 2 diabetes mellitus without complications (principal); Z68.33 Body mass index [BMI] 33.0-33.9, adult
CPT/HCPCS: 97803; G0108

== ENCOUNTER → 2021-05-06 14:41 | Outpatient (CLI) | payer MEDICAID, SELFPAY ==
--- NOTE | 2021-05-06 15:01 | BD_ITS ---
STUDY: DUAL ENERGY X-RAY ABSORPTIOMETRY / DXA REASON FOR EXAM: Female, 56 years old. Post menopausal TECHNIQUE: Bone Mineral Density (BMD) measurements of lumbar spine and bilateral hips were obtained. COMPARISON: None. FINDINGS: Lumbar Spine (L1-L4): g/cm2 (1.215) / T-score (2.1) / Z-score (3.2) Findings are suggestive of normal bone density with a low fracture risk. Left Femur Total: g/cm2 (1.114) / T-score (1.4) / Z-score (2.2) Left Femoral Neck: g/cm2 (0.853) / T-score (0.0) / Z-score (1.) Right Femur Total: g/cm2 (1.033) / T-score (0.7) / Z-score (1.5) Right Femoral Neck: g/cm2 (0.822) / T-score (-0.2) / Z-score (0.9) BD/Dexa Bone Density Study IMPRESSION: The patient is considered normal as outlined below according to World Surinder Organization (WHO) criteria with a low fracture risk. Reference Information: The T-score is the number of standard deviations above or below the standard which is normal for young adults at their peak bone mineral density. The World Health Organization (WHO) interprets the T-scores as follows: Above -1 Normal bone density Between -1 and -2.5 Osteopenia Equal to / or below -2.5 Osteoporosis As a practical clinical guideline, osteopenia may be graded as follows: Mild -1 through -1.5 Moderate -1.6 through -2.0 Severe -2.1 through -2.4 The Z-score is the number of standard deviations above or below age-matched controls. A Z-score of less than -1.5 would be considered abnormal. References: 1. NIH Osteoporosis and Related Bone Diseases www osteo.org 2. International Society for Clinical Densitometry www iscd.org 3. National Osteoporosis Foundation www nof.org Electronically Signed: Rogers Harkins MD at 9:36 EDT , Service support ,
== END ==
PROVIDERS: PCP Internal Medicine; Referring Provider Internal Medicine; Visit Provider Internal Medicine
DX: Z78.0 Asymptomatic menopausal state (principal)
CPT/HCPCS: 77080

== ENCOUNTER 2021-05-13 15:00 | Outpatient (RCR) | payer MEDICAID, SELFPAY ==
[2021-04-23 00:30] VITALS: BMI 32.9
== END 2021-05-23 23:59 ==
LOC: DC 15:00
PROVIDERS: PCP Internal Medicine; Visit Provider Nurse Practitioner Adult Health
DX: E11.9 Type 2 diabetes mellitus without complications (principal); Z68.33 Body mass index [BMI] 33.0-33.9, adult
CPT/HCPCS: 97803; G0108

== ENCOUNTER 2021-05-31 16:09 | Outpatient (RCR) | payer MEDICAID, SELFPAY ==
[2021-05-24 00:24] VITALS: BMI 32.9
== END 2021-06-22 23:59 ==
LOC: DC 16:09
PROVIDERS: PCP Internal Medicine; Visit Provider Nurse Practitioner Adult Health
DX: E11.9 Type 2 diabetes mellitus without complications (principal); Z68.33 Body mass index [BMI] 33.0-33.9, adult
CPT/HCPCS: 97803

== ENCOUNTER 2021-07-05 15:34 | Outpatient (RCR) | payer MEDICAID, SELFPAY ==
[2021-06-23 00:29] VITALS: BMI 32.9
== END 2021-07-23 23:59 ==
LOC: DC 15:34
PROVIDERS: PCP Internal Medicine; Visit Provider Nurse Practitioner Adult Health
DX: E11.9 Type 2 diabetes mellitus without complications (principal); Z68.33 Body mass index [BMI] 33.0-33.9, adult
CPT/HCPCS: 97803

== ENCOUNTER 2021-09-13 23:19 | Emergency (ER) | payer MEDICAID, SELFPAY ==
[2021-09-13 23:21] VITALS: BP 138/104; PULSE 98; RESP 16; TEMP 36.1; O2SAT 98; BMI 32.3
--- NOTE | 2021-09-13 23:29 | ED.VIS.DENTA ---
HPI History of Present Illness Chief Complaint: Other, Pain/Inj Detail of Chief Complaint: Pain near the angle of the mandible left side Informant: patient Onset/Context/Timing Onset: Today Context: Sudden Onset Timing: Continuous Quality: Pain Location: Angle of the mandible radiating to the condyle left side Current Severity: Mild Maximum Severity: Moderate Worsened by: Nothing Associated Symptoms Assocated Symptom - Dental: Negative for fever, jaw swelling, face swelling, cold sensitivity or hot sensitivity Narrative Narrative: Patient is a 56-year-old woman with history of type 2 diabetes, hypertension, neuropathy, dyslipidemia who presents with left-sided jaw pain near the angle of the mandible radiating to the left condyles (preauricular area. She denies fever, chills night sweats processes rheumatic fever, heart murmur, mitral prolapse or being immune suppressed. She denies decreased hearing or ringing in ears. She denies ringing in her years. She denies intolerance to cold or hot liquids/food. She is able to open her mouth completely. Prior similar symptoms: Yes Recent Illness/Hospitalization: No PFSH PFS Medical History Arthritis Arthritis Diabetes mellitus Hypertension Neuropathy Obesity Sciatica Uterine cancer Wart of hand Home Medications compress.stocking,knee,reg,lrg ea 06/18/19 [History Last Taken Unknown] blood sugar diagnostic #200 ea 08/07/19 [Rx Last Taken Unknown] blood pressure monitor #1 ea 09/17/19 [Rx Last Taken Unknown] blood-glucose meter #1 ea 11/19/19 [Rx Last Taken Unknown] lancets 28 gauge #200 ea 12/20/19 [Rx Last Taken Unknown] acetaminophen 500 mg tablet 1,000 mg PO TID PRN #180 tab 02/07/20 [Rx Last Taken Unknown] clobetasol 0.05 % topical cream 1 applic TOPICAL DAILY 08/24/20 [History Last Taken Unknown] mirabegron 50 mg tablet,extended release 24 hr 100 mg PO DAILY tab 08/24/20 [History Last Taken Unknown] atorvastatin 10 mg tablet 10 mg PO DAILY #90 tab 06/25/21 [Rx Last Taken Unknown] blood sugar diagnostic #200 ea 06/25/21 [Rx Last Taken Unknown] cholecalciferol (vitamin D3) 125 mcg (5,000 unit) capsule 5,000 unit PO DAILY #90 cap 12/03/21 [Rx Last Taken Unknown] gabapentin 100 mg capsule 100 mg PO TID #90 cap 06/25/21 [Rx Last Taken Unknown] lancets #200 ea 06/25/21 [Rx Last Taken Unknown] lisinopril 10 mg tablet 10 mg PO QDAY #30 tab 06/25/21 [Rx Last Taken Unknown] meloxicam 7.5 mg tablet 7.5 mg PO DAILY PRN #90 tab 06/25/21 [Rx Last Taken Unknown] pen needle, diabetic 32 gauge x 32 #30 ea 06/25/21 [Rx Last Taken Unknown] tizanidine 4 mg tablet 4 mg PO BID PRN #120 tab 06/25/21 [Rx Last Taken Unknown] insulin glargine 100 unit/mL (3 mL) subcutaneous pen 20 unit SC DAILY #15 ml 08/06/21 [Rx Last Taken Unknown] levomefolate Ca 3 mg-B6 35 mg-meB12 2 mg-algal oil 90.314 mg capsule 1 cap PO BID #60 cap 08/13/21 [Rx Last Taken Unknown] blood sugar diagnostic #100 ea 09/01/21 [Rx Last Taken Unknown] hydrocodone-acetaminophen 1 tab PO Q6H PRN PRN 3 Days #10 tablet 09/13/21 [Rx Last Taken Unknown] metformin 1,000 mg PO BID 09/13/21 [History Last Taken Unknown] penicillin V potassium 500 mg PO 4X/DAY #20 tab 09/13/21 [Rx Last Taken Unknown] Allergy/AdvReac Type Severity Reaction Status Date / Time No Known Allergies Allergy Verified 09/13/21 23:20 Family History Grandmother Arthritis Mother Arthritis Aunt Arthritis Father Cancer lungs and liver Surgical History History of D&C History of hysterectomy for cancer Social History (Updated 09/13/21 @ 23:[address] Mauri White MD) household members: spouse other: likes to buy junk. Smoking Status: Never smoker alcohol intake: never substance use type: does not use what type of physical activity do you participate in: walking seatbelt use: always do you feel safe at home: Yes ROS ROS ED Constitutional Constitutional ED: Denies chills, fever(s), subjective, sweats or weight loss Eyes Eyes: Denies blurry vision, change in vision or other ENT ENT ED: Reports other Details: Per HPI ; Denies ear pain, rhinorrhea or sore throat Cardiovascular Cardiovascular: Denies chest pain Respiratory/Chest Respiratory/Chest: Denies cough or dyspnea Gastrointestinal Gastrointestinal: Denies nausea or vomiting Integumentary Denies rash Neurologic Neurologic: Denies headache(s) EXAM Physical Exam Const Vital Signs: 09/13/21 23:21 Temperature 97 F L Temperature Source Temporal Pulse Rate 98 Respiratory Rate 16 Blood Pressure 138/104 H Blood Pressure Mean 115 Pulse Ox 98 Oxygen Delivery Method Room Air Positive well nourished, well developed and obese General Appearance ED: well developed and NAD Nutritional Appearance: obese HEENT Reports TM's clear HEENT Narrative: Patient has a large filling noted tooth #18. She has evidence of periodontal disease and gingivitis. There is tenderness with tapping around tooth #18. Suspect she has an infection. Clinically she does not have reversible or irreversible pulpitis. Negative for trauma or tenderness Face and Sinus: Negative for sinuses nontender Tympanic Membrane ED: Yes TM's clear left (Scarring noted left due to multiple infection as a child) Mouth ED: Yes oral and palatal mucosa normal, Yes lips normal, Yes tongue normal and Yes salivary gland normal Mouth: oral and palatal mucosa normal, lips normal, tongue normal and salivary gland normal Teeth and Gingiva: abnormal tooth and associated gingiva and poor dentition Throat: posterior oropharynx normal Eyes PERRL and EOMs intact bilaterally General Eye ED: Negative for pale conjunctiva or scleral icterus Neck no lymphadenopathy, supple and no JVD Neck Narrative: Trachea is midline. There is no in-store expiratory stridor. General: normal visual inspection; Negative for anterior neck swelling or submandibular swelling Lymph Lymphatic: no lymphadenopathy noted Resp normal respiratory effort and clear to auscultation bilaterally Cardio regular rate, regular rhythm, S1 normal heart sound, S2 normal heart sound and no murmurs Back/Spine no CVA tenderness Neuro oriented x3 and CN's II-XII intact bilaterally Sensorium / Orientation: alert Psych mental status grossly normal Skin no rashes or lesions noted and no wounds MDM MDM MDM Narrative Medical decision making narrative: Patient was treated with short course of penicillin and pain medicine. Dental pain suspect infection. Discharge Plan Triage Chief Complaint: Other, Pain/Inj ED Provider: Mauri White Dx/Rx/DC Orders Clinical Impression: Pain, dental, Gingivitis, Chronic periodontal disease Instructions: ED Dental Pain Prescriptions: New hydrocodone-acetaminophen [hydrocodone-acetaminophen] 1 TABLET tablet 1 tab PO Q6H PRN PRN (Reason: Pain) 3 Days Qty: 10 RF: 0 penicillin V potassium 500 MG tablet 500 mg PO 4X/DAY Qty: 20 RF: 0 No Action (DME) compress.stocking,knee,reg,lrg Misc See Rx Instructions .ROUTE .MEDSUPPLY RF: 0 (DME) blood pressure monitor Kit See Rx Instructions .ROUTE .MEDSUPPLY Qty: 1 RF: 0 (DME) lancets [FreeStyle Lancets] 28 gauge misc See Rx Instructions .ROUTE .MEDSUPPLY Qty: 200 RF: 3 acetaminophen [Pain Reliever (acetaminophen)] 500 mg tablet 1,000 mg PO TID PRN (Reason: fever or pain) Qty: 180 RF: 3 Myrbetriq 50 mg tablet extended release 24 hr 100 mg PO DAILY RF: 0 clobetasol 0.05 % cream 1 applic TOPICAL DAILY RF: 0 Lantus Solostar U-100 Insulin 100 unit/mL (3 mL) insulin pen 20 unit SC DAILY Qty: 15 RF: 3 metformin 500 mg tablet 1,000 mg PO BID RF: 0 (DME) True Metrix Glucose Test Strip Strip See Rx Instructions .ROUTE .MEDSUPPLY Qty: 200 RF: 6 (DME) blood-glucose meter [FreeStyle Lite Meter] Kit See Rx Instructions .ROUTE .MEDSUPPLY Qty: 1 RF: 0 atorvastatin 10 mg tablet 10 mg PO DAILY Qty: 90 RF: 3 (DME) FreeStyle Lite Strips Strip See Rx Instructions .ROUTE .MEDSUPPLY Qty: 200 RF: 3 cholecalciferol (vitamin D3) 125 mcg (5,000 unit) capsule 5,000 unit PO DAILY Qty: 90 RF: 3 gabapentin 100 mg capsule 100 mg PO TID Qty: 90 RF: 1 lisinopril 10 mg tablet 10 mg PO QDAY Qty: 30 RF: 11 (DME) lancets Misc See Rx Instructions .ROUTE .MEDSUPPLY Qty: 200 RF: 3 meloxicam 7.5 mg tablet 7.5 mg PO DAILY PRN (Reason: Arthritis) Qty: 90 RF: 1 (DME) pen needle, diabetic [BD Ultra-Fine Iliana Pen Needle] 32 gauge x 5/32 needle See Rx Instructions .ROUTE .MEDSUPPLY Qty: 30 RF: 4 tizanidine 4 mg tablet 4 mg PO BID PRN (Reason: muscle spasticity) Qty: 120 RF: 2 [id number]-algal oil [Metanx (algal oil)] 3 mg-35 mg-2 mg -90.314 mg capsule 1 cap PO BID Qty: 60 RF: 6 (DME) OneTouch Verio test strips Strip See Rx Instructions .ROUTE .MEDSUPPLY Qty: 100 RF: 3 Primary Care Provider: Naomie Clarke Referrals: Naomie Clarke MD [Primary Care Provider] - Disposition Disposition: Home, Self Care
[2021-09-13] MEDS: Penicillin Vk 250 MG Tablet 500 MG PO (23:49)
[2021-09-13] MEDS: HYDROcodone Bitartrate/Apap 5/325 Tablet PO (23:49)
== END 2021-09-13 23:55 | disposition home or self-care (01) ==
LOC: ED 23:45
PROVIDERS: Emergency Provider Emergency Medicine; PCP Internal Medicine; Visit Provider Emergency Medicine
DX: K05.10 Chronic gingivitis, plaque induced (principal); E11.40 Type 2 diabetes mellitus with diabetic neuropathy, unspecified; Z79.4 Long term (current) use of insulin; E78.5 Hyperlipidemia, unspecified; I10 Essential (primary) hypertension; Z85.42 Personal history of malignant neoplasm of other parts of uterus; E66.9 Obesity, unspecified; M19.90 Unspecified osteoarthritis, unspecified site; Z79.899 Other long term (current) drug therapy; Z98.811 Dental restoration status; Z68.32 Body mass index [BMI] 32.0-32.9, adult
CPT/HCPCS: 99282; A4216

== ENCOUNTER → 2022-01-27 | Outpatient (CLI) | payer MEDICAID, SELFPAY ==
[2022-01-27 16:45] LABS: Absolute Lymphocyte Count 0.85 X10^3/uL (0.83-4.51); Absolute Neutrophil Count 2.8 X10^3/uL (2.0-7.7); Basophil# 0.03 X10^3/uL; Basophil% 0.7 % (0-1); Eosinophil# 0.06 X10^3/uL; Eosinophils% 1.5 % (0-5); Hematocrit 42.8 % (37-47); Hemoglobin 14.3 g/dL (12.0-15.0); Lymphocyte # 0.85 X10^3/ul (0.83-4.51); Lymphocyte % 20.9 % (19-41); Mean Corp Hgb Conc 33.4 g/dL (32-36); Mean Corpuscular Hgb 33.6 pg (27.0-32.0); Mean Corpuscular Volume 100.5 fL (81-99); Monocyte# 0.34 X10^3/uL; Monocyte% 8.4 % (0-10); NRBC Flagged by Analyzer 0 % (0-5); Neutrophil # 2.78 X10^3/uL (2.7-7.7); Neutrophil % 68.3 % (47-70); Platelet Count 253 K/mm3 (150-450); RBC Distribution Width CV 11.9 % (11.6-14.6); RBC Distribution Width SD 43.8 fl (35.1-43.9); Red Blood Count 4.26 M/mm3 (4.2-5.4); White Blood Count 4.1 K/mm3 (4.4-11.0)
[2022-01-27 17:05] LABS: ALB/GLOB Ratio 1.1 RATIO (0.9-2.4); AST(SGOT) 27 U/L (15-37); Alanine Aminotransfer ALT/SGPT 41 U/L (13-56); Albumin, Serum 3.9 g/dL (3.2-5.0); Alkaline Phosphatase 59 U/L (45-117); Anion Gap 4 (5-15); BUN 13 mg/dL (7-18); Calcium,Total 9.5 mg/dL (8.5-10.1); Chloride 103 mmol/L (98-107); Creatinine, Serum 0.59 mg/dL (0.55-1.02); EST Glomerular Filtration Rate 111 mL/min (>60); Est Glom Filt Rate - Afr Amer 135 mL/min (>60); Globulin 3.7 g/dL (2.2-4.2); Glucose 95 mg/dL (74-106); Potassium 4.1 mmol/L (3.5-5.1); Protein, Total 7.6 g/dL (6.4-8.2); Sodium Level 138 mmol/L (136-145)
== END | disposition home or self-care (01) ==
LOC: BIMLAB 15:15
PROVIDERS: PCP Internal Medicine; Referring Provider Internal Medicine; Visit Provider Internal Medicine
DX: E11.9 Type 2 diabetes mellitus without complications (principal); I10 Essential (primary) hypertension
CPT/HCPCS: 36415; 80053; 85025

== ENCOUNTER 2022-02-17 12:50 | Outpatient (CLI) | payer MEDICAID, SELFPAY ==
--- NOTE | 2022-02-17 12:53 | BI_ITS ---
MAMMOGRAPHY - BILATERAL SCREENING REASON FOR EXAM: Female, 57 years old. Routine annual screening examination. PERTINENT HISTORY: Aunt with breast cancer. TECHNIQUE: Digital bilateral breast saira (3D mammographic acquisition) in the CC and MLO projections. 2-D mediolateral oblique (MLO) and craniocaudad (CC) views of both breasts were obtained. CAD: Full Field Digital Mammography with Computer Added Detection was performed. COMPARISON: Comparison is made with prior study dated 03/19/2021 and 03/17/2020. FINDINGS: Breast Composition: There are scattered areas of fibroglandular density. There are no dominant masses or suspicious calcifications. No other significant abnormalities are identified. There has been no significant change since the prior study. BI/SCRN MAMM (CAD)W/SAIRA BILAT IMPRESSION: Stable bilateral screening mammogram. Yearly follow-up mammogram recommended. (A) ASSESSMENT CATEGORY: BIRADS Category 1: Negative. A letter regarding these results will be sent to the patient by the facility within 30 days. Approximately 10% of breast cancers are not detected by mammography. A normal mammogram should not delay biopsy of a clinically suspicious abnormality. [id number] Electronically Signed: Rogers Harkins MD at 13:48 EDT ,
== END 2022-02-17 23:59 | disposition home or self-care (01) ==
LOC: OPBI 12:51
PROVIDERS: PCP Internal Medicine; Visit Provider Internal Medicine
DX: Z12.31 Encounter for screening mammogram for malignant neoplasm of breast (principal)
CPT/HCPCS: 77063; 77067

== ENCOUNTER 2022-02-28 21:34 | Emergency (ER) | payer MEDICAID, SELFPAY ==
[2022-02-28 21:34] VITALS: BP 162/114; PULSE 91; RESP 18; TEMP 36; O2SAT 100; BMI 28.4
--- NOTE | 2022-02-28 22:31 | ED.VIS.FALL ---
HPI HPI - Fall History of Present Illness Chief Complaint: Fall Detail of Chief Complaint: Injury to right periorbital region and right knee Informant: patient Occured/Mechanism Occurred: Hours Mechanism/Context: Yes same level fall and Yes trip Narrative: Patient wanted to get walk-in before finishing house chores. She tripped on a large weed. She fell face first. She sustained blunt trauma to the right periorbital region and right knee. Pain/Injury Location: Right periorbital and right knee Quality of Pain: Dull and Aching Current Severity: Mild Maximum Severity: Moderate Worsened by: Palpation and right knee with movement Relieved by: Breast Associated Symptoms Associated Symptoms: Negative for Parasthesias, Weakness, Loss of function, Inability to ambulate, Loss of consciousness or Amnesia Narrative Narrative: Patient is a 57-year-old woman with history of hypertension, type 2 diabetes, hypercholesterolemia who presents after fall. She sustained injury to her face and knee. She does not recall her last tetanus shot. She denies headache. She states her face hurts on the right. She believes the bruises are from her glasses. Her glasses did not break. She denies ringing or ears or decreased hearing. She denies blurred from her nose. She denies injury to her teeth. She denies double vision, blurred vision loss of vision. She denies neck pain. She denies paresthesia, anesthesia or motor expressly at the time of the fall. She denies cardiac respiratory symptoms. [place] black or maroon-colored stool. She does endorse right knee pain. She denies history of neuropathy or PAD. Tetanus Immunization: Unknown Prior similar symptoms: No Recent Illness/Hospitalization: No PFSH PFSH Medical History Arthritis Arthritis Breast cancer screening Diabetes mellitus Hypertension Neuropathy Obesity Sciatica Uterine cancer Wart of hand Home Medications compress.stocking,knee,reg,lrg 06/18/19 [History Last Taken Unknown] blood sugar diagnostic (True Metrix Glucose Test Strip) #200 ea 08/07/19 [Rx Last Taken Unknown] blood pressure monitor #1 ea 09/17/19 [Rx Last Taken Unknown] blood-glucose meter (FreeStyle Lite Meter kit) #1 ea 11/19/19 [Rx Last Taken Unknown] lancets 28 gauge (FreeStyle Lancets) #200 ea 12/20/19 [Rx Last Taken Unknown] acetaminophen 500 mg tablet (Pain Reliever (acetaminophen)) 1,000 mg PO TID PRN fever or pain #180 tabs 02/07/20 [Rx Last Taken Unknown] clobetasol 0.05 % topical cream 1 applic topical DAILY 08/24/20 [History Last Taken Unknown] atorvastatin 10 mg tablet 10 mg PO DAILY #90 tabs 06/25/21 [Rx Last Taken Unknown] blood sugar diagnostic (FreeStyle Lite Strips) #200 ea 06/25/21 [Rx Last Taken Unknown] cholecalciferol (vitamin D3) 125 mcg (5,000 unit) capsule 5,000 unit PO DAILY #90 caps 06/25/21 [Rx Last Taken Unknown] lancets #200 ea 06/25/21 [Rx Last Taken Unknown] pen needle, diabetic 32 gauge x 5/32 (BD Ultra-Fine Iliana Pen Needle) #30 ea 06/25/21 [Rx Last Taken Unknown] tizanidine 4 mg tablet 4 mg PO BID PRN muscle spasticity #120 tabs 06/25/21 [Rx Last Taken Unknown] insulin glargine 100 unit/mL (3 mL) subcutaneous pen (Lantus Solostar U-100 Insulin) 20 unit (0.2 mL) subcut DAILY #15 mL 08/06/21 [Rx Last Taken Unknown] levomefolate Ca 3 mg-B6 35 mg-meB12 2 mg-algal oil 90.314 mg capsule (Metanx (algal oil)) 1 cap PO BID #60 caps 08/13/21 [Rx Last Taken Unknown] blood sugar diagnostic (OneTouch Verio test strips) #100 ea 09/01/21 [Rx Last Taken Unknown] metformin 500 mg tablet 1,000 mg PO BID 09/13/21 [History Last Taken Unknown] meloxicam 7.5 mg tablet 7.5 mg PO DAILY PRN Arthritis #90 tabs 10/26/21 [Rx Last Taken Unknown] mirabegron 50 mg tablet,extended release 24 hr (Myrbetriq) 100 mg PO DAILY #90 tabs 10/26/21 [Rx Last Taken Unknown] biotin 1 mg capsule 1 mg PO DAILY 11/18/21 [History Last Taken Unknown] vitamin Bcomplex no.10-folic acid ER 400 mcg tablet,extended release tab PO 11/18/21 [History Last Taken Unknown] gabapentin 100 mg capsule 100 mg PO TID #90 caps 12/29/21 [Rx Last Taken Unknown] lisinopril 5 mg tablet 5 mg PO QDAY #60 tabs 01/27/22 [Rx Last Taken Unknown] Allergy/AdvReac Type Severity Reaction Status Date / Time No Known Allergies Allergy Verified 02/28/22 21:37 Family History Grandmother Arthritis Mother Arthritis Aunt Arthritis Father Cancer lungs and liver Surgical History History of D&C History of hysterectomy for cancer Social History household members: spouse other: likes to buy junk. Smoking Status: Never smoker alcohol intake: never substance use type: does not use what type of physical activity do you participate in: walking seatbelt use: always do you feel safe at home: Yes ROS ROS ED Constitutional Constitutional ED: Denies chills, fever(s), subjective, sweats or weight loss Eyes Eyes: Denies blurry vision, change in vision or diplopia ENT ENT ED: Reports other Details: Denies inability to open or close her mouth. Denies her teeth not lining up. ; Denies ear pain, rhinorrhea or sore throat Cardiovascular Cardiovascular: Denies chest pain, orthopnea, palpitations or paroxysmal nocturnal dyspnea Respiratory/Chest Respiratory/Chest: Denies cough, dyspnea, dyspnea on exertion, orthopnea or paroxysmal nocturnal dyspnea Gastrointestinal Gastrointestinal: Denies abdominal pain, nausea or vomiting Genitourinary Genitourinary ED: Denies dysuria or hematuria Musculoskeletal Musculoskeletal: Denies arthralgias, back pain, myalgias or neck pain Integumentary Reports Abrasions; Denies abscess Neurologic Neurologic: Denies headache(s), paresthesias or weakness Endocrine Endocrinology: Denies polydipsia, polyphagia or polyuria Hematologic/Lymphatic Hematologic/Lymphatic: Denies easy bleeding or easy bruising Allergic/Immunologic Allergic/Immunologic ED: Reports other Details: No dental trauma. ; Denies mouth swelling EXAM Physical Exam Const Vital Signs: 02/28/22 21:34 02/28/22 21:59 Temperature 96.8 F L Temperature Source Temporal Pulse Rate 91 Respiratory Rate 18 Respiratory Effort Normal Non-Labored Respiratory Depth Normal Respiratory Pattern Normal Blood Pressure 162/114 H Blood Pressure Mean 130 Pulse Ox 100 Oxygen Delivery Method Room Air Positive well nourished Constitutional Narrative: Patient appears in no distress. Vital signs noted. HEENT Reports TM's normal bilaterally HEENT Narrative: Ears normal. External auditory canal normal. No hemotympanum. No septal deviation hematoma. No dental trauma. No tenderness over the right or left TMJ with opening closing her mouth. There is no click. Question of slight hypoesthesia infraorbital nerve on the right. There is soft tissue swelling. There is pain to palpation of the orbital rim. There is no evidence entrapment. The levator mechanism is intact. trauma, contusion and hematoma Eyes PERRL and EOMs intact bilaterally Eyes Narrative: There is no subconjunctival hemorrhage noted. There is no APD. There is no diplopia with central gaze. Neck full ROM, no lymphadenopathy and supple Chest Wall inspection of chest normal and palpation of chest normal Chest Narrative: There is no pain the patient of the right or left clavicle. There is no crepitus or subcutaneous air. Resp normal respiratory effort, no retractions and clear to auscultation bilaterally Cardio regular rate, regular rhythm, S1 normal heart sound, S2 normal heart sound and no murmurs Cardio Narrative: Negative Huy's crunch. GI non-tender, non-distended and no masses Palpation: soft Back/Spine no CVA tenderness Cervical Spine: Negative for cervical spine tenderness Thoracic Spine / Upper Back: Negative for ROM limited, pain with ROM or thoracic spinal tenderness Lumbar Spine / Lower Back: Negative for lumbar spinal tenderness Extremity Extremity Narrative: There is swelling of the right knee area. There is pain with palpation of the inferior portion of the patella. She is able to extend against gravity but complains of pain. She has pain with flexion past 100 degrees. There is no laxity varus valgus stress testing. There is no true joint line tenderness. Jorge's test was negative. There is no pain palpation the popliteal fossa. There is no fullness or pulsatile mass in the popliteal fossa. The patella is not ballotable. There is no obvious effusion. Neuro oriented x3, CN's II-XII intact bilaterally, moves all extremities, no focal motor deficits and no sensory deficits noted Tmomy Coma Scale: document GCS findings Spontaneous Obeys Commands Oriented 15 Sensorium / Orientation: alert Motor Exam: strength 5/5 throughout Psych mental status grossly normal and thought process normal Skin Lesions: no lesions Rashes: no rashes Trauma: abrasion MDM MDM MDM Narrative Medical decision making narrative: X-ray of the facial bones and knee were obtained to evaluate for contusion versus fracture. Tetanus was updated. We will have nurse cleaned abraded area right knee region. Radiography Diagnostic Testin views of the facial bone was obtained. Independent review interpretation by me at 2256 was negative for fracture. There is no fluid in the maxillary sinus. There is no evidence of foreign body. 4 views of the knee was obtained and independently reviewed and interpreted by me. Patient has arthritic changes. There is no evidence of fracture. There is no effusion. There is no evidence of subluxation or dislocation. There is no foreign body noted. Discharge Plan Triage Chief Complaint: Fall ED Provider: Mauri White Dx/Rx/DC Orders Clinical Impression: Injury due to fall, Contusion of face, Abrasion of face, Contusion of right knee, initial encounter, Abrasion, right knee, initial encounter Instructions: ED Abrasion, ED Contusion, Lower Extremity, ED Facial Contusion Prescriptions: No Action (DME) compress.stocking,knee,reg,lrg Misc See Rx Instructions .ROUTE .MEDSUPPLY Rx Instructions: wear daily for venous insufficiency 20-30 mmHg (DME) blood pressure monitor Kit See Rx Instructions .ROUTE .MEDSUPPLY Qty: 1 0RF Rx Instructions: Check blood pressure daily for hypertension I10 (DME) lancets [FreeStyle Lancets] 28 gauge misc See Rx Instructions .ROUTE .MEDSUPPLY Qty: 200 3RF Rx Instructions: check blood glucose 3x daily for type 2 DM acetaminophen [Pain Reliever (acetaminophen)] 500 mg tablet 1,000 mg PO TID PRN (Reason: fever or pain) Qty: 180 3RF clobetasol 0.05 % cream 1 applic TOPICAL DAILY Lantus Solostar U-100 Insulin 100 unit/mL (3 mL) insulin pen 20 unit SC DAILY Qty: 15 3RF biotin 1 mg capsule 1 mg PO DAILY vitamin B complex no.10-FA 400 mcg tablet extended release PO lisinopril 5 mg tablet 5 mg PO QDAY Qty: 60 2RF metformin 500 mg tablet 1,000 mg PO BID (DME) True Metrix Glucose Test Strip Strip See Rx Instructions .ROUTE .MEDSUPPLY Qty: 200 6RF Rx Instructions: As directed twice daily (DME) blood-glucose meter [FreeStyle Lite Meter] Kit See Rx Instructions .ROUTE .MEDSUPPLY Qty: 1 0RF Rx Instructions: As directed, check blood glucose daily for type 2 DM atorvastatin 10 mg tablet 10 mg PO DAILY Qty: 90 3RF (DME) FreeStyle Lite Strips Strip See Rx Instructions .ROUTE .MEDSUPPLY Qty: 200 3RF Rx Instructions: check blood glucose 3x daily for type 2 DM cholecalciferol (vitamin D3) 125 mcg (5,000 unit) capsule 5,000 unit PO DAILY Qty: 90 3RF (DME) lancets Misc See Rx Instructions .ROUTE .MEDSUPPLY Qty: 200 3RF Rx Instructions: check blood glucose daily for type 2 diabetes (DME) pen needle, diabetic [BD Ultra-Fine Iliana Pen Needle] 32 gauge x 5/32 needle See Rx Instructions .ROUTE .MEDSUPPLY Qty: 30 4RF Rx Instructions: daily tizanidine 4 mg tablet 4 mg PO BID PRN (Reason: muscle spasticity) Qty: 120 2RF [id number]-algal oil [Metanx (algal oil)] 3 mg-35 mg-2 mg -90.314 mg capsule 1 cap PO BID Qty: 60 6RF (DME) OneTouch Verio test strips Strip See Rx Instructions .ROUTE .MEDSUPPLY Qty: 100 3RF Rx Instructions: As directed, check 3 times a day meloxicam 7.5 mg tablet 7.5 mg PO DAILY PRN (Reason: Arthritis) Qty: 90 1RF Rx Instructions: Take with food Myrbetriq 50 mg tablet extended release 24 hr 100 mg PO DAILY Qty: 90 0RF gabapentin 100 mg capsule 100 mg PO TID Qty: 90 1RF Primary Care Provider: Naomie Clarke Referrals: Naomie Clarke MD [Primary Care Provider] - 1 Week if not improving Activity Restrictions/Additional Instructions: 1. Apply bacitracin ointment 3 times a day to your abrasions 2. Ice to areas of discomfort and swelling for the next 3 to 5 days. 3. You will feel worse and hurt in more places and you presently do 4. If there is any concern for infection either see your doctor, Dr. Clarke or return to the emergency department Disposition Disposition: Home, Self Care
--- NOTE | 2022-02-28 22:40 | RAD_ITS ---
STUDY: X-RAY - FACIAL BONES REASON FOR STUDY: Female, 57 years old. Trauma to the right orbit. TECHNIQUE: 3 view(s) of the facial bones. COMPARISON: None. FINDINGS: Normal bilateral frontozygomatic and zygomatic-temporal arches. Normal bilateral medial and inferior orbital hanna. Normal bilateral orbits. Normal visualized nasal bones. Normal anterior nasal spine. The remaining visualized osseous structures are normal. No visualized fracture. Normal visualized paranasal sinuses. RAD/Facial Bones min 3 Views IMPRESSION: Normal x-ray examination of the facial bones. Electronically Signed: Edinson Chávez DO at 23:09 EDT ,
--- NOTE | 2022-02-28 22:40 | RAD_ITS ---
STUDY: X-RAY - RIGHT KNEE REASON FOR EXAM: Female, 57 years old. Injury. Pain. Fell while walking on cranial. Abrasions. TECHNIQUE: 4 view(s) of the knee. COMPARISON: None. FINDINGS: Normal visualized distal femur. Normal visualized proximal tibia and fibula. Normal proximal tibiofibular articulation. There is no acute fracture, dislocation or destructive osseous pathology. There is mild degenerative arthrosis of the medial femorotibial compartment. Normal lateral femorotibial compartment. Normal patellofemoral articulation. There is a soft tissue prominence in the suprapatellar region suggesting a small volume joint effusion. The soft tissue structures are unremarkable. RAD/Knee 4 or More Views IMPRESSION: Degenerative arthrosis. No acute fracture or dislocation. Electronically Signed: Edinson Chávez DO at 23:10 EDT ,
[2022-02-28] MEDS: Diphth,Pertuss(Acell),Tet Vac 0.5 ML Vial IM (23:14)
[2022-02-28 23:15] VITALS: BP 148/88; PULSE 79; RESP 16; O2SAT 100
== END 2022-02-28 23:17 | disposition home or self-care (01) ==
PROVIDERS: Emergency Provider Emergency Medicine; PCP Internal Medicine; Visit Provider Emergency Medicine
DX: S00.83XA Contusion of other part of head, initial encounter (principal); E11.40 Type 2 diabetes mellitus with diabetic neuropathy, unspecified; Z79.4 Long term (current) use of insulin; S00.81XA Abrasion of other part of head, initial encounter; S80.01XA Contusion of right knee, initial encounter; I10 Essential (primary) hypertension; E78.00 Pure hypercholesterolemia, unspecified; W18.09XA Striking against other object with subsequent fall, initial encounter; Z85.42 Personal history of malignant neoplasm of other parts of uterus; E66.9 Obesity, unspecified; M19.90 Unspecified osteoarthritis, unspecified site; Z79.899 Other long term (current) drug therapy; Z23 Encounter for immunization; Z68.28 Body mass index [BMI] 28.0-28.9, adult
CPT/HCPCS: 70150; 73564; 90471; 90715; 99282

== ENCOUNTER → 2022-03-21 | Outpatient (CLI) | payer MEDICAID, SELFPAY ==
[2022-03-21 15:12] LABS: Cholesterol 130 mg/dL (200); High Density Lipoprotein 55 mg/dL; Triglycerides 88 mg/dL; Very Low Density Lipoprotein 18 mg/dL (5-40)
== END | disposition home or self-care (01) ==
LOC: BIMLAB 13:49
PROVIDERS: PCP Internal Medicine; Referring Provider Internal Medicine; Visit Provider Internal Medicine
DX: Z00.00 Encounter for general adult medical examination without abnormal findings (principal)
CPT/HCPCS: 36415; 80061

== ENCOUNTER → 2022-05-12 | Outpatient (CLI) | payer MEDICAID, SELFPAY ==
[2022-05-12 17:17] LABS: Microalbumin,Random Urine 16.5 mg/L (NO RANGE EST.); Microalbumin:Creatinine Ratio 8.3 mg/g CRE (<30 mg/g CRE)
== END | disposition home or self-care (01) ==
LOC: LABSPEC 16:09
PROVIDERS: PCP Internal Medicine; Referring Provider Internal Medicine; Visit Provider Internal Medicine
DX: E11.9 Type 2 diabetes mellitus without complications (principal)
CPT/HCPCS: 82043; 82570

== ENCOUNTER → 2022-08-15 | Outpatient (CLI) | payer MEDICAID, SELFPAY ==
[2022-08-15 16:56] LABS: Anion Gap 7 (5-15); BUN 20 mg/dL (7-18); BUN/Creat Ratio 43.5 RATIO (10-20); Calcium,Total 9.2 mg/dL (8.5-10.1); Chloride 102 mmol/L (98-107); Creatinine, Serum 0.46 mg/dL (0.55-1.02); EST Glomerular Filtration Rate 149 mL/min (>60); Est Glom Filt Rate - Afr Amer 180 mL/min (>60); Glucose 85 mg/dL (74-106); Potassium 4.4 mmol/L (3.5-5.1); Sodium Level 139 mmol/L (136-145)
== END | disposition home or self-care (01) ==
LOC: BIMLAB 15:34
PROVIDERS: PCP Internal Medicine; Referring Provider Internal Medicine; Visit Provider Internal Medicine
DX: E11.9 Type 2 diabetes mellitus without complications (principal)
CPT/HCPCS: 36415; 80048

== ENCOUNTER → 2023-02-16 | Outpatient (CLI) | payer MEDICAID, SELFPAY ==
[2023-02-16 16:50] LABS: Absolute Lymphocyte Count 1.12 X10^3/uL (0.83-4.51); Absolute Neutrophil Count 2.1 X10^3/uL (2.0-7.7); Basophil# 0.03 X10^3/uL; Basophil% 0.8 % (0-1); Eosinophil# 0.07 X10^3/uL; Eosinophils% 1.9 % (0-5); Hematocrit 39.8 % (37-47); Hemoglobin 13.3 g/dL (12.0-15.0); Lymphocyte # 1.12 X10^3/ul (0.83-4.51); Lymphocyte % 30.5 % (19-41); Mean Corp Hgb Conc 33.4 g/dL (32-36); Mean Corpuscular Hgb 33.8 pg (27.0-32.0); Mean Corpuscular Volume 101.3 fL (81-99); Monocyte# 0.36 X10^3/uL; Monocyte% 9.8 % (0-10); NRBC Flagged by Analyzer 0 % (0-5); Neutrophil # 2.08 X10^3/uL (2.7-7.7); Neutrophil % 56.7 % (47-70); Platelet Count 252 K/mm3 (150-450); RBC Distribution Width CV 11.5 % (11.6-14.6); RBC Distribution Width SD 42.6 fl (35.1-43.9); Red Blood Count 3.93 M/mm3 (4.2-5.4); White Blood Count 3.7 K/mm3 (4.4-11.0)
[2023-02-16 17:47] LABS: ALB/GLOB Ratio 1.1 RATIO (0.9-2.4); AST(SGOT) 22 U/L (15-37); Alanine Aminotransfer ALT/SGPT 34 U/L (13-56); Albumin, Serum 3.6 g/dL (3.2-5.0); Alkaline Phosphatase 59 U/L (45-117); Anion Gap 4 (5-15); BUN 13 mg/dL (7-18); BUN/Creat Ratio 26.9 RATIO (10-20); Calcium,Total 9.1 mg/dL (8.5-10.1); Chloride 103 mmol/L (98-107); Cholesterol 145 mg/dL (200); Creatinine, Serum 0.48 mg/dL (0.55-1.02); EST Glomerular Filtration Rate 140 mL/min (>60); Est Glom Filt Rate - Afr Amer 170 mL/min (>60); Globulin 3.4 g/dL (2.2-4.2); Glucose 94 mg/dL (74-106); High Density Lipoprotein 55 mg/dL; Potassium 3.9 mmol/L (3.5-5.1); Sodium Level 137 mmol/L (136-145); Triglycerides 111 mg/dL; Very Low Density Lipoprotein 22 mg/dL (5-40)
[2023-02-16 18:16] LABS: Microalbumin,Random Urine < 5.0 mg/L (NO RANGE EST.)
== END | disposition home or self-care (01) ==
LOC: BIMLAB 14:29
PROVIDERS: PCP Internal Medicine; Referring Provider Internal Medicine; Visit Provider Internal Medicine
DX: Z00.00 Encounter for general adult medical examination without abnormal findings (principal); E11.42 Type 2 diabetes mellitus with diabetic polyneuropathy; Z79.4 Long term (current) use of insulin; E55.9 Vitamin D deficiency, unspecified
CPT/HCPCS: 36415; 80053; 80061; 82043; 82306; 82570; 85025

== ENCOUNTER 2023-03-12 20:57 | Emergency (ER) | payer MEDICAID, SELFPAY ==
[2023-03-12 20:58] VITALS: BP 181/89; PULSE 100; RESP 18; TEMP 36.8; O2SAT 100; BMI 28.3
--- NOTE | 2023-03-12 21:12 | EDS_ITS ---
HPI <BOBO Perrin - Last Filed: 03/12/23 22:01> History of Present Illness Chief Complaint: Head Injury Narrative Narrative: Patient presenting today due to a fall that occurred this evening. She reports that she was sitting on a chair slid backwards from under her and she fell to her bottom and hit the back of her head on the chair. She reports having a laceration to her posterior scalp. She is not on any blood thinners. Tetanus is up-to-date. She did not lose consciousness, she does not feel dazed or confused, there is no nausea or vomiting, headache, visual changes, dizziness, or lightheadedness. <Dr. Anna Loyd DO - Last Filed: 03/12/23 21:20> History of Present Illness Detail of Chief Complaint: Head injury [facility] <BOBO Perrin - Last Filed: 03/12/23 22:01> [facility] Medical History Anxiety and depression Arthritis Arthritis Breast cancer screening Diabetes mellitus Flu vaccine need Hypertension Laceration of left index finger Laceration of left middle finger Neuropathy Obesity Overweight (BMI 25.0-29.9) Preventative health care Sciatica Uterine cancer Vitamin D deficiency Wart of hand Home Medications acetaminophen 500 mg tablet (Pain Reliever (acetaminophen)) 1,000 mg (2 x 500 mg) PO TID PRN fever or pain #180 tabs 02/07/20 [Rx Last Taken Unknown] lancets #200 ea 06/25/21 [Rx Last Taken Unknown] biotin 1 mg capsule 1 mg PO DAILY 11/18/21 [History Last Taken Unknown] mecobalamin (vitamin B12) 1,000 mcg lozenges 1,000 mcg PO DAILY 05/12/22 [History Last Taken Unknown] gabapentin 100 mg capsule See Rx Instructions .Route .COMPLEX 3 months #90 caps 08/15/22 [Rx Last Taken Unknown] vitamin A 2,400 mcg capsule 2,400 mcg PO DAILY 08/15/22 [History Last Taken Unknown] blood sugar diagnostic ([employer]Touch Verio test strips) #100 ea 08/16/22 [Rx Last Taken Unknown] lancets 33 gauge (OneTouch Delica Plus Lancet) #100 ea 08/17/22 [Rx Last Taken Unknown] Lantus Solostar U-100 Insulin 100 unit/mL (3 mL) subcutaneous pen (insulin gla rgine) 16 unit (0.16 mL) subcut DAILY #15 mL 09/26/22 [Rx Last Taken Unknown] atorvastatin 10 mg tablet 10 mg PO DAILY #90 tabs 11/11/22 [Rx Last Taken Unknown] cholecalciferol (vitamin D3) 125 mcg (5,000 unit) capsule 5,000 unit PO DAILY #90 caps 11/11/22 [Rx Last Taken Unknown] meloxicam 7.5 mg tablet 7.5 mg PO DAILY PRN Arthritis #90 tabs 11/11/22 [Rx Last Taken Unknown] metformin 500 mg tablet 1,000 mg (2 x 500 mg) PO BID #360 tabs 11/11/22 [Rx Last Taken Unknown] tizanidine 4 mg tablet 2 mg (1/2 x 4 mg) PO BID PRN muscle spasticity #90 tabs 11/11/22 [Rx Last Taken Unknown] pen needle, diabetic 32 gauge x 5/32 (Unifine Pentips Plus) ##100 01/09/23 [Rx Last Taken Unknown] multivitamin 1 tab PO DAILY 02/16/23 [History Last Taken Unknown] niacin 250 mg tablet 250 mg PO DAILY 02/16/23 [History Last Taken Unknown] Allergy/AdvReac Type Severity Reaction Status Date / Time No Known Allergies Allergy Verified 03/12/23 21:00 Family History Grandmother Arthritis Mother Arthritis Aunt Arthritis Father Cancer lungs and liver Surgical History History of D&C History of hysterectomy for cancer Social History household members: spouse other: likes to buy junk. Smoking Status: Never smoker alcohol intake: never substance use type: does not use what type of physical activity do you participate in: walking seatbelt use: always do you feel safe at home: Yes ROS <BOBO Perrin - Last Filed: 03/12/23 22:01> ROS ED Constitutional Constitutional ED: Denies chills or fever(s) Eyes Eyes: Denies change in vision Cardiovascular Cardiovascular: Denies chest pain or palpitations Respiratory/Chest Respiratory/Chest: Denies cough or dyspnea Gastrointestinal Gastrointestinal: Denies abdominal pain, nausea or vomiting Musculoskeletal Musculoskeletal: Denies arthralgias or myalgias Integumentary Reports laceration Neurologic Neurologic: Denies dizziness or headache(s) EXAM <BOBO Perrin - Last Filed: 03/12/23 22:01> Physical Exam Const Vital Signs: 03/12/23 20:58 03/12/23 21:06 Temperature 98.2 F Temperature Source Temporal Pulse Rate 100 Respiratory Rate 18 Respiratory Effort Normal Non-Labored Respiratory Depth Normal Respiratory Pattern Normal Blood Pressure 181/89 H Blood Pressure Mean 119 Pulse Ox 100 Oxygen Delivery Method Room Air Room Air Positive well nourished, well developed and no apparent distress General Appearance ED: well developed HEENT Reports normocephalic and head/scalp atraumatic HEENT Narrative: 2 cm full-thickness laceration to the posterior scalp. Mouth ED: Yes moist mucous membranes normal Eyes PERRL and EOMs intact bilaterally Neck full ROM and supple Chest Wall inspection of chest normal Resp normal respiratory effort and clear to auscultation bilaterally Cardio regular rate and regular rhythm GI soft to palpation, non-tender, non-distended and no masses Back/Spine normal ROM and normal to inspection Extremity normal to inspection and full ROM Neuro oriented x3, CN's II-XII intact bilaterally, moves all extremities, no focal motor deficits and no sensory deficits noted Sensorium / Orientation: awake and alert Psych mental status grossly normal and thought process normal Skin no rashes or lesions noted and no wounds <Dr. Anna Loyd DO - Last Filed: 03/12/23 21:20> Physical Exam Const Vital Signs: 03/12/23 20:58 03/12/23 21:06 Temperature 98.2 F Temperature Source Temporal Pulse Rate 100 Respiratory Rate 18 Respiratory Effort Normal Non-Labored Respiratory Depth Normal Respiratory Pattern Normal Blood Pressure 181/89 H Blood Pressure Mean 119 Pulse Ox 100 Oxygen Delivery Method Room Air Room Air MDM <BOBO Perrin - Last Filed: 03/12/23 22:01> [facility] Narrative Medical decision making narrative: Patient presenting today due to a fall that occurred earlier this evening. She does have a 2 cm linear laceration to the posterior scalp that is gaping and will need repaired. Tetanus is up-to-date. According to the [place] head CT rules I do not feel that patient requires a head CT. She is not complaining of any neck pain to indicate need for neck imaging. Laceration will be repaired. She will be educated on head injury precautions and reasons to return. She will be discharged home in stable condition and is comfortable with plan. I have personally performed a face to face assessment of the patient and have reviewed the JAE Note. I performed a substantive portion of the visit including all aspects of the following. My mathews findings include: History is [patient presents to the emergency department with complaint of a head injury. Patient states that she was sitting in a metal chair when the chair slipped out from underneath her and she fell back striking the chair with her head. She denies loss of consciousness. Patient states that she got right back up. She sustained a laceration to the back of her head. She denies any neck pain. She has had no vomiting. She denies significant headache right now just says it is minimal. Patient not anticoagulated.] Exam is [HEENT-PERRLA, EOMI. Cranial nerves II through XII grossly intact. TMs clear. Mucous membranes moist. No adenopathy. Patient has a 2.5 cm laceration to the posterior occiput without any bony depressions noted. No hemotympanum. Cardiovascular-regular rate and rhythm without murmur or ectopy Lungs-clear to auscultation, chest wall stable without crepitus or subcu emphysema Abdomen-normoactive bowel sounds, soft, nontender, no rebound or rigidity, no peritoneal signs. Extremities-intact ?4, normal range of motion, normal pulses, atraumatic] Medical Decison Making [clinically do not feel patient requires any type of imaging. Patient did ask about imaging and discussed risks and benefits inc luding risk of radiation. Clinically I did not feel she met criteria for imaging. She is comfortable now with foregoing any imaging. She will have her laceration repaired by physician diversional therapist's assistant. She is to follow-up with primary care physician in 10 days for suture removal. She is to return if severe headache, difficulty with balance or speech, vomiting, or condition should worsen anyway.] Other additions or changes: [None] <Dr. Anna Loyd, DO - Last Filed: 03/12/23 21:20> [facility] Narrative Medical decision making narrative: Patient presenting today due to a fall that occurred earlier this evening. She does have a 2 cm linear laceration to the posterior scalp that is gaping and will need repaired. Tetanus is up-to-date. According to the [place] head CT rules I do not feel that patient requires a head CT. She is not complaining of any neck pain to indicate need for neck imaging. Laceration will be repaired. She will be educated on head injury precautions and reasons to return. I have personally performed a face to face assessment of the patient and have reviewed the JAE Note. I performed a substantive portion of the visit including all aspects of the following. My mathews findings include: History is [patient presents to the emergency department with complaint of a head injury. Patient states that she was sitting in a metal chair when the chair slipped out from underneath her and she fell back striking the chair with her head. She denies loss of consciousness. Patient states that she got right back up. She sustained a laceration to the back of her head. She denies any neck pain. She has had no vomiting. She denies significant headache right now just says it is minimal. Patient not anticoagulated.] Exam is [HEENT-PERRLA, EOMI. Cranial nerves II through XII grossly intact. TMs clear. Mucous membranes moist. No adenopathy. Patient has a 2.5 cm laceration to the posterior occiput without any bony depressions noted. No hemotympanum. Cardiovascular-regular rate and rhythm without murmur or ectopy Lungs-clear to auscultation, chest wall stable without crepitus or subcu emphysema Abdomen-normoactive bowel sounds, soft, nontender, no rebound or rigidity, no peritoneal signs. Extremities-intact ?4, normal range of motion, normal pulses, atraumatic] Medical Decison Making [clinically do not feel patient requires any type of imaging. Patient did ask about imaging and discussed risks and benefits including risk of radiation. Clinically I did not feel she met criteria for imaging. She is comfortable now with foregoing any imaging. She will have her laceration repaired by physician diversional therapist's assistant. She is to follow-up with primary care physician in 10 days for suture removal. She is to return if severe headache, difficulty with balance or speech, vomiting, or condition should worsen anyway.] Other additions or changes: [None] Procedures <BOBO Perrin - Last Filed: 03/12/23 22:01> Lacerations laceration: Depth: Sub Q Shape: Linear Laceration repair: Irrigated, Lidocaine with epi and Skin sutures Number of Sutures/Ignacio: 2 Suture Information: Ethilon, Simple and 4-0 Discharge Plan Triage Chief Complaint: Head Injury ED Midlevel Provider: Sue Schneider ED Provider: Anna Loyd Dx/Rx/DC Orders Clinical Impression: Closed head injury, Scalp laceration Instructions: ED Head Injury (Adult), ED Laceration Scalp Stitches or Ignacio Prescriptions: No Action acetaminophen [Pain Reliever (acetaminophen)] 500 mg tablet 1,000 mg PO TID PRN (Reason: fever or pain) Qty: 180 3RF biotin 1 mg capsule 1 mg PO DAILY mecobalamin (vitamin B12) 1,000 mcg lozenge 1,000 mcg PO DAILY Rx Instructions: allow to dissolve in mouth OR may chew lightly before swallowing vitamin A 2,400 mcg capsule 2,400 mcg PO DAILY gabapentin 100 mg capsule See Rx Instructions .ROUTE .COMPLEX 90 Days Qty: 90 3RF Dose Instruction: TAKE 1 CAPSULE BY MOUTH 3 TIMES DAILY Rx Instructions: TAKE 1 CAPSULE BY MOUTH 3 TIMES DAILY tizanidine 4 mg tablet 2 mg PO BID PRN (Reason: muscle spasticity) Qty: 90 2RF metformin 500 mg tablet 1,000 mg PO BID Qty: 360 1RF cholecalciferol (vitamin D3) 125 mcg (5,000 unit) capsule 5,000 unit PO DAILY Qty: 90 3RF atorvastatin 10 mg tablet 10 mg PO DAILY Qty: 90 3RF meloxicam 7.5 mg tablet 7.5 mg PO DAILY PRN (Reason: Arthritis) Qty: 90 1RF Rx Instructions: Take with food niacin 250 mg tablet 250 mg PO DAILY multivitamin Tablet 1 tab PO DAILY (DME) lancets Misc See Rx Instructions .ROUTE .MEDSUPPLY Qty: 200 3RF Rx Instructions: check blood glucose daily for type 2 diabetes (DME) OneTouch Verio test strips Strip See Rx Instructions .ROUTE .MEDSUPPLY Qty: 100 3RF Rx Instructions: As directed, check 3 times a day (DME) lancets [OneTouch Delica Plus Lancet] 33 gauge misc See Rx Instructions .Route Qty: 100 3RF Rx Instructions: Check blood sugar three times daily Lantus Solostar U-100 Insulin 100 unit/mL (3 mL) insulin pen 16 unit SC DAILY Qty: 15 3RF (DME) pen needle, diabetic [Unifine Pentips Plus] 32 gauge x 5/32 needle See Rx Instructions .ROUTE .COMPLEX Qty: 100 3RF Dose Instruction: USE DAILY Rx Instructions: USE DAILY Primary Care Provider: Naomie Clarke Referrals: Naomie Clarke MD [Primary Care Provider] - 10 Day for suture removal Activity Restrictions/Additional Instructions: Please follow-up with your PCP in 10 days for suture removal. Please return for any concerning symptoms. Disposition Disposition: Home, Self Care
[2023-03-12] MEDS: Lidocaine 1% /Epi 1:100 (20ml) 20 ML Vial 10 ML INFILT (21:20)
[2023-03-12 22:10] VITALS: BP 137/81; PULSE 77; RESP 15; O2SAT 97
== END 2023-03-12 22:11 | disposition home or self-care (01) ==
PROVIDERS: Emergency Provider Emergency Medicine; PCP Internal Medicine; Visit Provider Emergency Medicine
DX: S01.01XA Laceration without foreign body of scalp, initial encounter (principal); E11.40 Type 2 diabetes mellitus with diabetic neuropathy, unspecified; I10 Essential (primary) hypertension; Z79.899 Other long term (current) drug therapy; M19.90 Unspecified osteoarthritis, unspecified site; Z79.85 Long-term (current) use of injectable non-insulin antidiabetic drugs; Z90.710 Acquired absence of both cervix and uterus; Z85.42 Personal history of malignant neoplasm of other parts of uterus; S09.8XXA Other specified injuries of head, initial encounter; W07.XXXA Fall from chair, initial encounter
CPT/HCPCS: 12001; 99282

== ENCOUNTER → 2023-03-13 | Outpatient (CLI) | payer MEDICAID, SELFPAY ==
--- NOTE | 2023-03-13 14:06 | BI_ITS ---
MAMMOGRAPHY - BILATERAL SCREENING REASON FOR EXAM: Female, 58 years old. Routine annual screening examination. PERTINENT HISTORY: Aunt with breast cancer. TECHNIQUE: Digital bilateral breast saira (3D mammographic acquisition) in the CC and MLO projections. 2-D mediolateral oblique (MLO) and craniocaudad (CC) views of both breasts were obtained. CAD: Full Field Digital Mammography with Computer Added Detection was performed. COMPARISON: Screening mammogram from 02/17/2022, 02/27/2021. FINDINGS: Breast Composition: There are scattered areas of fibroglandular density. There are no dominant masses or suspicious calcifications. No other significant abnormalities are identified. There has been no significant change since the prior study. BI/SCRN MAMM (CAD)W/SAIRA BILAT IMPRESSION: Stable bilateral screening mammogram. Yearly follow-up mammogram recommended. (A) ASSESSMENT CATEGORY: BIRADS Category 1: Negative. A letter regarding these results will be sent to the patient by the facility within 30 days. Approximately 10% of breast cancers are not detected by mammography. A normal mammogram should not delay biopsy of a clinically suspicious abnormality. Electronically Signed: Demetrio Godwin DO at 8:43 EDT ,
== END | disposition home or self-care (01) ==
LOC: OPBI 14:05
PROVIDERS: PCP Internal Medicine; Referring Provider Internal Medicine; Visit Provider Internal Medicine
DX: Z12.31 Encounter for screening mammogram for malignant neoplasm of breast (principal); Z80.3 Family history of malignant neoplasm of breast
CPT/HCPCS: 77063; 77067

== ENCOUNTER → 2023-09-01 | Outpatient (CLI) | payer MEDICAID, SELFPAY ==
--- OUTSIDE RECORDS SUMMARY | 2023-09-01 15:54 | XMS RPT_ITS | CCD ---
Author Name Unknown Address [address] [place] [address] Organization [facility] Care Team Providers Care Process Safety Specialist Name Role Phone Berenice Sears MD Unavailable [phone] Duane Bryant Unavailable Hayes Baker Unavailable Eve Barber Unavailable Unavailable Naomie Clarke Primary Care Provider Chicho, Oil Madhav Mounir Primary Care [facility] Chicho, Oli Madhav Mounir Primary Care [facility] CHICHO, OLI MADHAV MOUNIR Attending Katie vailable CHICHO, OLI MADHAV MOUNIR Primary Care Katie vailable BENITO MORALES Attending Unavailable CHICHO, OLI MADHAV MOUNIR Primary Care Katie vailable SHANE OLEARY Attending Unavailable CHICHO, OLI MADHAV MOUNIR Primary Care Katie vailable CHICHO, OLI MADHAV MOUNIR Attending Katie vailable CHICHO, OLI MADHAV MOUNIR Primary Care Katie vailable IZZY GOMEZ Attending Unavailable CHICHO, OLI MADHAV MOUNIR Primary Care Katie vailable Chicho, Oli Madhav Mounir Primary Care [facility] CHICHO, OLI MADHAV MOUNIR Admitting Katie vailable ABIGAIL JONES Attending Unavailable CHICHO, OLI MADHAV MOUNIR Referring Katie vailable CHICHO, OLI MADHAV MOUNIR Primary Care Katie vailable CHICHO, OLI MADHAV MOUNIR Admitting Katie vailable ABIGAIL JONES Attending Unavailable CHICHO, OLI MADHAV MOUNIR Referring Katie vailable CHICHO, OLI MADHAV MOUNIR Primary Care Katie vailable CHICHO, OLI MADHAV MOUNIR Admitting Katie vailable BERTHA GARDNER Attending Unavailable CHICHO, OLI MADHAV MOUNIR Referring Katie vailable CHICHO, OLI MADHAV MOUNIR Primary Care Katie vailable CHICHO, OLI MADAHV MOUNIR Admitting Katie vailable CHICHO, OLI MADHAV MOUNIR Primary Care Katie vailable CHICHO, OLI MADHAV MOUNIR Admitting Katie vailable CODY, BERTHA Attending Unavailable CHICHO, OLI MADHAV MOUNIR Referring Katie vailable CHICHO, OLI MADHAV MOUNIR Primary Care Katie vailable CHICHO, OLI MADHAV MOUNIR Admitting Katie vailable TORO LUCIO Attending Unavailable CHICHO, OLI MADHAV MOUNIR Referring Katie vailable CHICHO, OLI MADHAV MOUNIR Primary Care Katie vailable CHICHO, OLI MADHAV MOUNIR Admitting Katie vailable CHICHO, OLI MADHAV MOUNIR Primary Care Katie vailable Chicho, Oli Madhav Mounir Primary Care Provid er Oli Valentino MD Amdhav Mounir Primary Care Pro vider Medications Current Medications Medication Drug Class(es) Dates Sig (Normalized) Sig (Original) acetaminophen 500 mg oral tablet (6 sources) Start: 12-20-2019 acetaminophen (TYLENOL) 500 MG tablet 1-2 pills po q 8 hrs prn pain. Max 3000 mg/d including amount in other medicines. 0 12/20/2019 Active Completed/Discontinued Medications Medication Drug Class(es) Dates Sig (Normalized) Sig (Original) amoxicillin 500 mg oral capsule (2 sources) Penicillin-class Antibacterial Start: 08-05-2020 End: 09-04-2020 amoxicillin (AMOXIL) 500 MG capsule TAKE 1 CAPSULE EVERY 8HRS 0 08/05/2020 09/04/2020 Discontinued (Therapy completed) clindamycin 150 mg oral capsule (2 sources) Lincosamide Antibacterial Start: 08-13-2020 End: 09-04-2020 take 1 capsule by mouth three times daily clindamycin (CLEOCIN) 150 MG capsule Take 150 mg by mouth 3 (three) times a day . 0 08/13/2020 09/04/2020 Discontinued (Therapy completed) empagliflozin 25 mg oral tablet (1 source) Sodium-Glucose Cotransporter 2 Inhibitor Start: 11-15-2019 End: 09-25-2020 empagliflozin 25 mg Tab 1 Unspecified . 0 11/15/2019 09/25/2020 Discontinued (Side effects) enalapril maleate 5 mg oral tablet (1 source) Angiotensin Converting Enzyme Inhibitor Start: 07-27-2015 ENALAPRIL MALEATE 5 MG TABS daily ENALAPRIL MALEATE [id number] Louis Flores glimepiride 2 mg oral tablet (5 sources) Sulfonylurea Start: 07-27-2015 End: 09-25-2020 take 1 tablet by mouth twice daily glimepiride (AMARYL) 2 MG tablet Take 2 mg by mouth 2 (two) times a day . 0 12/19/2016 09/25/2020 Discontinued (Therapy completed) Problems Active Problems Problem Classification Problem Date Documented Da te Episodic/Chronic Acquired foot deformities (15 sources) Hammer toe; Translations: [Other hammer toe(s) (acquired), right foot] Onset: 08-14-2012 09-04-2020 Chronic Allergic reactions (6 sources) Vesicular eczema; Translations: [Dyshidrotic eczema] Onset: 09-25-2020 09-25-2020 Episodic Anxiety disorders (6 sources) Mixed anxiety and depressive disorder; Translations: [Anxiety and depression] Onset: 09-25-2020 09-25-2020 Chronic Cancer of uterus (17 sources) Malignant neoplasm of endometrium; Translations: [Malignant neoplasm of endometrium of corpus uteri ] Onset: 02-24-2015 06-27-2017 Chronic Diabetes mellitus without complication (18 sources) Type 2 diabetes mellitus; Translations: [Type 2 diabetes mellitus without complication] Onset: 05-30-2008 10-11-2016 Chronic Disorders of lipid metabolism (20 sources) Pure hypercholesterolemia ; Translations: [Mixed hyperlipidemia] Onset: 05-21-2008 09-04-2020 Chronic Disorders of teeth and jaw (15 sources) Infection of tooth; Translations: [Periapical abscess without sinus] Onset: 09-04-2020 09-04-2020 Episodic Essential hypertension (15 sources) Benign essential hypertension; Translations: [Essential (primary) hypertension] Onset: 03-11-2008 09-04-2020 Chronic Nutritional deficiencies (15 sources) Vitamin D deficiency; Translations: [Vitamin D deficiency, unspecified] Onset: 10-14-2008 09-04-2020 Chronic Osteoarthritis (16 sources) Idiopathic osteoarthritis; Translations: [Arthritis] Onset: 04-18-2016 05-04-2016 Chronic Other bone disease and musculoskeletal deformities (15 sources) Segmental and somatic dysfunction; Translations: [Segmental and somatic dysfunction of abdomen and other regions] Onset: 09-04-2020 09-04-2020 Episodic Other circulatory disease (15 sources) Vascular insufficiency; Translations: [Other disorder of circulatory system] Onset: 09-04-2020 09-04-2020 Episodic Other connective tissue disease (1 source) Pain of right thigh; Translations: [Right thigh pain] Other diseases of bladder and urethra (15 sources) Overactive bladder; Translations: [Overactive bladder] Onset: 09-04-2020 09-04-2020 Chronic Other nervous system disorders (16 sources) Neuropathy; Translations: [Polyneuropathy, unspecified] Onset: 10-11-2016 10-11-2016 Chronic Other non-traumatic joint disorders (16 sources) Joint swelling; Translations: [Effusion, unspecified joint] Onset: 09-04-2020 09-04-2020 Episodic Other non-traumatic joint disorders (1 source) Hand joint pain; Translations: [Arthralgia of both hands] Episodic Other nutritional; endocrine; and metabolic disorders (15 sources) Overweight; Translations: [Overweight] Onset: 10-11-2016 10-11-2016 Chronic Other nutritional; endocrine; and metabolic disorders (10 sources) Body mass index 30+ - obesity; Translations: [Obesity, unspecified] Onset: 10-11-2016 09-04-2020 Chronic Other skin disorders (10 sources) Folliculitis; Translations: [Follicular disorder, unspecified] Onset: 09-04-2020 09-04-2020 Episodic Other skin disorders (15 sources) Dry skin dermatitis; Translations: [Xerosis cutis] Onset: 09-04-2020 09-04-2020 Episodic Residual codes; unclassified (14 sources) Chronic back pain ; Translations: [Chronic back pain] Onset: 09-04-2020 09-04-2020 Episodic Spondylosis; intervertebral disc disorders; other back problems (20 sources) Degeneration of lumbar intervertebral disc; Translations: [Cervical spondylosis] Onset: 09-04-2020 09-04-2020 Chronic Spondylosis; intervertebral disc disorders; other back problems (20 sources) Low back pain; Translations: [Lumbago with sciatica] Onset: 09-04-2020 09-04-2020 Episodic Thyroid disorders (15 sources) Multinodular goiter; Translations: [Nontoxic multinodular goiter] Onset: 08-20-2012 09-04-2020 Chronic Unclassified (1 source) Body mass index (BMI) 33.0-33.9, adult; Translations: [Body mass index (BMI) 33.0-33.9, adult] Onset: 10-11-2016 10-11-2016 Chronic Unclassified (1 source) Gynecologic examination ; Translations: [Encounter for gynecological examination (general) (routine) with abnormal findings] Onset: 06-23-2017 06-27-2017 Unclassified (1 source) Screening mammography ; Translations: [Encounter for screening mammogram for malignant neoplasm of breast] Onset: 06-23-2017 06-27-2017 Unclassified (15 sources) Patient encounter status; Translations: [Encounter for routine gynecological examination] Onset: 10-10-2008 09-04-2020 Viral infection (15 sources) Genital herpes simplex; Translations: [Herpesviral infection of urogenital system, unspecified] Onset: 09-10-2008 09-04-2020 Chronic Past or Other Problems Problem Classification Problem Date Documented Date Episodic/Chronic Administrative/social admission (1 source) Patient encounter status; Translations: [Persons encountering health services in other specified circumstances] Onset: 10-10-2008 09-04-2020 Episodic Cancer of uterus (15 sources) History of malignant neoplasm of endometrium; Translations: [Personal history of malignant neoplasm of other parts of uterus] Onset: 06-23-2017 09-04-2020 Episodic Nausea and vomiting (10 sources) Postoperative nausea and vomiting; Translations: [Nausea with vomiting, unspecified] Onset: 02-17-2015 09-04-2020 Episodic Other connective tissue disease (3 sources) Lateral epicondylitis, left elbow; Translations: [Adhesive capsulitis of left shoulder] Onset: 07-27-2015 08-05-2015 Episodic Other connective tissue disease (15 sources) Metatarsalgia; Translations: [Metatarsalgia, unspecified foot] Onset: 08-14-2012 09-04-2020 Episodic Other connective tissue disease (15 sources) Impingement syndrome of shoulder region; Translations: [Impingement syndrome of unspecified shoulder] Onset: 07-27-2015 09-04-2020 Episodic Other non-traumatic joint disorders (2 sources) Pain in left elbow; Translations: [Pain in left shoulder] Onset: 07-27-2015 08-05-2015 Episodic Other nutritional; endocrine; and metabolic disorders (1 source) Overweight; Translations: [Overweight] Onset: 10-11-2016 09-04-2020 Episodic Results Test Name Value Interpretation Reference Range Facil ity Vital Signs Date Time Vital Sign Value Performing Clinician Faci lity 09-25-2020 11:04-0500 BMI (Body Mass Index) 32.68 kg/m2 [facility] 09-25-2020 11:04-0500 Body Temperature 98.01 [degF] [facility] 09-25-2020 11:04-0500 Body weight 91.85 kg [facility] 09-25-2020 11:04-0500 BP Diastolic 82 mm[Hg] [facility] 09-25-2020 11:04-0500 BP Systolic 125 mm[Hg] [facility] 09-25-2020 11:04-0500 Height 167.6 cm [facility] 09-25-2020 11:04-0500 Pulse (Heart Rate) 74 /min [facility] 09-25-2020 11:04-0500 Pulse Oximetry 97 % [facility] 09-25-2020 11:04-0500 Respiratory Rate 18 /min [facility] 09-04-2020 11:46-0500 BMI (Body Mass Index) 32.38 kg/m2 [facility] 09-04-2020 11:46-0500 Body Temperature 97.81 [degF] [facility] 09-04-2020 11:46-0500 Body weight 90.99 kg [facility] 09-04-2020 11:46-0500 BP Diastolic 79 mm[Hg] [facility] 09-04-2020 11:46-0500 BP Systolic 124 mm[Hg] [facility] 09-04-2020 11:46-0500 Height 167.6 cm [facility] 09-04-2020 11:46-0500 Pulse (Heart Rate) 84 /min [facility] 09-04-2020 11:46-0500 Pulse Oximetry 96 % [facility] 09-04-2020 11:46-0500 Respiratory Rate 16 /min [facility] 11-08-2016 13:16-0400 BMI (Body Mass Index) 34.21 kg/m2 Berenice Sears MD [facility] 11-08-2016 13:16-0400 Body Temperature 97.81 [degF] Berenice Sears MD [facility] 11-08-2016 13:16-0400 Body Temperature 97.8 [degF] Berenice Sears MD [facility] 11-08-2016 13:16-0400 BP Diastolic 87 mm[Hg] Berenice Sears MD [facility] 11-08-2016 13:16-0400 BP Systolic 140 mm[Hg] Berenice Sears MD [facility] 11-08-2016 13:16-0400 BSA (Body Surface Area) 2.05 m2 Berenice Sears MD [facility] 11-08-2016 13:16-0400 Height 167.64 cm Berenice Sears MD [facility] 11-08-2016 13:16-0400 Pulse (Heart Rate) 106 /min Berenice Sears MD [facility] 11-08-2016 13:16-0400 Respiratory Rate 18 /min Berenice Sears MD [facility] 11-08-2016 13:16-0400 Weight 96.16 kg Berenice Sears MD [facility] 10-11-2016 15:110400 BP Diastolic 78 mm[Hg] Berenice Sears MD [facility] 10-11-2016 15:11-0400 BP Systolic 140 mm[Hg] Berenice Sears MD [facility] Encounters Encounter Date Encounter Type Care Provider Facility Start: 10-07-2020 End: 10-07-2020 Orders Only Norma Lisa Work Phone: [facility] Start: 10-02-2020 End: 10-02-2020 Refill Shane Oleary [facility] Procedures Date Procedure Procedure Detail Performing Clinician Start: 09-25-2020 Hemoglobin A1c/Hemoglobin.total in Blood Oli Madhavkira Valentino Work Phone: Start: 09-25-2020 Microalbumin [Mass/v olume] in Urine by Test strip Oli Chicho Start: 09-04-2020 Adult depression scr eening assessment Sangeeta Nathan Start: 08-07-2020 3 comp foot exam completed Oli Valentino Start: 06-25-2020 Microscopic observat ion [Identifier] in Cervix by Cyto stain Shane Oleary Start: 03-17-2020 Mammography Shane teixeira Start: 10-15-2019 Radiography of hip Zoltan Ibarra Work Phone: Start: 09-11-2018 Colonoscopy Sangeeta Castaneda n Start: 10-11-2016 End: 10-17-2016 *CMP Complete Metabolic Panel Rashmi Hernández NP Work Phone: Start: 10-11-2016 End: 10-17-2016 *Microalbumin, Creatine Ratio, rand urine Rashmi Hernández NP Work Phone: Start: 10-11-2016 End: 10-17-2016 Hemoglobin A1c/Hemoglobin.total in Blood Rashmi Hernández NP Work Phone: Start: 10-11-2016 End: 10-17-2016 Lipid 1996 panel - Serum or Plasma Rashmi Hernández NP Work Phone: Start: 05-09-2016 End: 05-22-2016 Arthrocentesis aspir&/inj major jt/bursa w/o Louis Flores Work Phone: Plan of Treatment Date Care Activity Detail Author Start: 09-11-2028 Screening for malignant neoplasm of colon [facility] Start: 06-25-2023 Screening for malignant neoplasm of cervix Pap Smear [facility] Start: 10-13-2022 Tetanus vaccination Tetanus: Every 10yrs [facility] Start: 10-12-2022 Tetanus vaccination Tetanus: Every 10yrs [facility] Start: 09-25-2021 Albumin DL <= 20 mg/L (U) [Mass/Vol] Urine Microalbumin [facility] Start: 09-04-2021 Adolescent depression screening assessment Depression Screening (PHQ9) [facility] Start: 09-04-2021 Depression screening using PHQ-9 (Patient Health Questionnaire 9) score Depression Screening (PHQ9) [facility] Start: 08-07-2021 Diabetic foot examination Foot Exam [facility] Start: 06-25-2021 History and physical examination, annual for health maintenance Wellness Visit [facility] Start: 03-28-2021 HbA1c (Bld) [Mass fraction] A1C [facility] Start: 03-17-2021 Screening mammography Mammogram [facility] Start: 10-29-2020 End: 10-29-2020 Office Visit [facility] Start: 10-16-2020 End: 10-16-2020 Nutrition 10/16/2020 Nutrition Nutrition Oli Valentino MD [address] [place] [address] [phone] [facility] Start: 10-12-2020 End: 10-12-2020 Treatment [facility] Start: 10-07-2020 End: 10-07-2020 Treatment [facility] Start: 10-05-2020 End: 10-05-2020 Treatment [facility] Start: 09-30-2020 End: 09-30-2020 Treatment [facility] Start: 09-28-2020 End: 09-28-2020 Treatment [facility] Start: 09-25-2020 End: 09-25-2020 Office Visit [facility] Start: 09-23-2020 End: 09-23-2020 Treatment [facility] Start: 09-21-2020 End: 09-21-2020 Treatment [facility] Start: 09-18-2020 End: 09-18-2020 Treatment [facility] Start: 09-10-2020 End: 09-10-2020 Evaluation 09/10/2020 Evaluation Rehabilitation Oli Valentino MD [address] [facility] [place] [address] [phone] Toro Lucio, PT [facility] Start: 03-24-2020 Influenza vaccination given Sequential Influenza Vaccine (#1) [facility] Start: 11-18-2019 End: 11-18-2019 Office Visit 11/18/2019 Office Visit Physical Medicine & Rehabilitation Ephraim Ibarra, DO [address] [place] [address] [phone] [facility] Start: 03-24-2019 Influenza vaccination INFLUENZA VACCINE (#1) [facility] Start: 09-30-2017 Screening mammography MAMMOGRAM SCREENING DISCUSSION [facility] Start: 06-23-2017 End: 06-27-2017 Mammogram, screening Mammogram, Screening, both breasts [facility] Start: 10-11-2016 End: 10-17-2016 *CMP Complete Metabolic Panel *CMP Complete Metabolic Panel [facility] Start: 10-11-2016 End: 10-17-2016 *Microalbumin, Creatine Ratio, rand urine *Microalbumin, Creatine Ratio, rand urine [facility] Start: 10-11-2016 End: 10-17-2016 Hemoglobin A1c/Hemoglobin.total mass fraction (Bld) *HgA1C [facility] Start: 10-11-2016 End: 10-17-2016 Lipid panel [AGGREGATE] *Lipid Profile [facility] Start: 05-11-2016 End: 05-11-2016 Physical Therapy General Physical Therapy [facility], [address] [place] [address], [phone] [facility] Start: 04-18-2016 End: 04-18-2016 Radex shoulder complete minimum 2 views X-Ray, Shoulder [facility] Start: 08-12-2015 End: 08-12-2015 Occupational Therapy General Occupational Therapy [facility], [address] [place] [address], [phone] [facility] Start: 2015 Administration of herpes zoster vaccine Zoster Vaccines (1 of 2) [facility] Start: 2015 Colonoscopy COLORECTAL CANCER SCREENING DISCUSSION [facility] Start: 2015 Screening for malignant neoplasm of colon [facility] Start: 2015 Zoster vaccine hzv live for subcutaneous use ZOSTER (SHINGLES) VACCINE (1 of 2) [facility] Start: 2005 Fasting lipid profile LIPID SCREENING [facility] Start: 1986 Screening for malignant neoplasm of cervix CERVICAL CANCER SCREENING DISCUSSION [facility] Start: 01-29-1984 Third diphtheria, tetanus and acellular pertussis (DTaP) vaccination TDAP (ADULT) [facility] Start: 1983 Hepatitis C antibody, confirmatory test Hepatitis C Screening [facility] Start: 1983 Hepatitis C screening Hepatitis C Screening [facility] Start: 1983 Tetanus vaccination TETANUS [facility] Start: 1981 COVID-19 Vaccine (1 of 2) COVID-19 Vaccine (1 of 2) [facility] Start: 01-29-1980 HIV screening HIV Screening [facility] Start: 1978 HIV screening HIV SCREENING DISCUSSION [facility] Start: 1975 Albumin DL <= 20 mg/L (U) [Mass/Vol] Urine Microalbumin [facility] Start: 1975 Diabetic foot examination Foot Exam [facility] Start: 1975 Microalbumin measurement, urine, quantitative Urine Microalbumin [facility] Start: 1975 Ophthalmic examination and evaluation Ophthalmology Exam [facility] Start: 01-29-1968 History and physical examination, annual for health maintenance Wellness Visit [facility] Start: 1965 HbA1c (Bld) [Mass fraction] A1C [facility] Start: 1965 Hemoglobin A1c measurement A1C [facility] Start: 1965 Hepatitis C antibody, confirmatory test HEPATITIS C VIRUS SCREENING [facility] Start: 1965 Screening for malignant neoplasm of cervix Pap Smear [facility] Start: 1965 Screening mammography Mammogram [facility] End: 09-04-2021 Anti-cyclic citrullinated peptide antibody level [facility] Antibody Lab Routine Joint swelling 1 Occurrences starting 09/04/2020 until 09/04/2021 [facility] Immunizations Immunization Date Immunization Notes Care Provider Milton becker 04-20-2020 influenza, injectabl e, quadrivalent, preservative free Oli [facility] 07-11-2018 influenza, injectabl e, quadrivalent, preservative free Oli [facility] 07-11-2018 pneumococcal polysac charide vaccine, 23 valent Oli [facility] 07-11-2018 influenza virus vacc ine, unspecified formulation [facility] 06-23-2018 influenza, injectabl e, quadrivalent, contains preservative Oli [facility] 06-23-2018 pneumococcal polysac charide vaccine, 23 valent Oli [facility] 10-13-2012 tetanus toxoid, redu jcaqui diphtheria toxoid, and acellular pertussis vaccine, adsorbed [facility] 07-03-2012 influenza virus vacc ine, unspecified formulation Oli [facility] 07-03-2012 influenza, seasonal, injectable Ellen a [facility] 05-10-2010 influenza virus vacc ine, unspecified formulation [facility] 05-10-2010 influenza, seasonal, injectable Ellen a [facility] 05-10-2010 pneumococcal polysac charide vaccine, 23 valent Oli [facility] 01-15-2004 tetanus and diphther ia toxoids, adsorbed, preservative free, for adult use (2 Lf of tetanus toxoid and 2 Lf of diphtheria toxoid) Shane Oleary [facility] Payers Date Payer Category Payer Unknown [employer] [facility] xxxxxxxxxxx 2019-Present xxxxxxxxxxx [id number] 2019 Medicaid [employer] [facility] [id number] 2019-Present [id number] 2019 Medicaid [id number] 1965 Unknown [id number] 1965 Unknown [id number] 1965 Unknown [id number] 1965 Unknown [id number] 1965 Unknown [id number] 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) [facility] Sex Assigned At Not on file [facility] Start: 09-04-2020 End: 09-10-2020 Tobacco use and exposure Never used [facility] Start: 09-04-2020 End: 09-10-2020 Alcohol intake Lifetime non-drinker (finding) [facility] Start: 09-04-2020 History SDOH Alcohol Frequency 1 [facility] Exposure to SARS-CoV -2 (event) Not sure [facility] Medical Equipment Procedure Code Equipment Code Equipment Origin al Text Equipment Identifier Dates CHECK BLOOD SUGA RS THREE TIMES DAILY [id number] Start: 08-01-2020 CHECK BLOOD SUGA R THREE TIMES DAILY [id number] Start: 08-01-2020 Unifine Pentips 32 gauge x 5/32 Ndle [id number] Start: 09-01-2020 End: 09-10-2020 Inject 1 Units u nder the skin daily . [id number] Start: 09-10-2020 by Miscellaneous route daily . [id number] Start: 09-28-2020 End: 09-28-2021 1 Lancet by Miscellaneous route daily . [id number] Start: 09-28-2020 by Miscellaneous route daily . [id number] Start: 10-05-2020 End: 10-05-2021 History of Present illness Narrative 09-10-2020 Toro Lucio, PT - 09/10/2020 1:00 PM EST Note Date & Type Note Facility 09-10-2020 History of Presen t illness Narrative [facility] Evaluation Today's Date 09/10/2020 Patient Name: Ramsey Quick Date of : 1965 Case Name: Low Back Pain Functional Diagnosis: 1. Bilateral low back pain with right-sided sciatica, unspecified chronicity Clinical Information: Subjective Referring Diagnosis: Bilateral Low Back Pain w/ Right Side Sciatica Follow-up with physician: 09/25/2020 History of Present Illness Date of Onset: years. Subjective History: Pt reports c/o chronic bilateral low back worsening over the years. She also reports occasional pain in the right buttock and posterior thigh, especially with prolonged sitting. This began after falling onto her left side on concrete. She reports h/o DM and previous chemotherapy causing peripheral neuropathy. She has been seeing a Chiropractor off and on since 2014. She was given a brace about 2 years ago but has discontinued wearing it. Previous Imaging: X-ray (July 2020) Pain Scale: Pain location: lumbar spine Average Pain: 5/10 Pain at highest: 7/10 Aggravating factors: pushing, pulling, lifting, carrying Easing factors: rest, medication 24 Hour Symptom Behavior Morning Pain: sudden End of day pain: worse Personal Goals: Decrease pain and improve activity tolerance Functional Mobility Status Functional Limitations: standing and sitting Current Activity Level: active Social Support: Mosque, social, or cultural considerations to be made aware of before starting treatment: No Home Environment: Current Home Environment: Setup: multi-level house First floor: half bath Second floor: bedroom and full bathActivities of Daily Living: independent with all Instrumental Activities of Daily Living: Laundry: increased time and effort Housekeeping: Heavy Cleaning: needs some assistance Basic Home Maintenance: needs some assitance Yardwork: Gardening: needs some assistance Mowing: needs some assistance Current Vocational Participation: unemployeed Sleep Assessment Preferred sleep position: supine Sleep disturbance: Sleep Disturbance Red Flags: history of cancer Comments: Barriers to Care: None Mosque, social, or cultural considerations to be made aware of before starting treatment: No Lumbar Spine Posture: reduced lordosis and thoracic kyphosis Asymmetrics: Leg length: right longer <1 cm - possible anterior innomintae rotation Trunk AROM: Baseline pain level and symptom location: Mild aching pain in the low back, no pain in the buttock or thigh, tingling in the feet Movement Loss % of Loss Description Flexion 25% no change in pain Extension 0% no change in pain Side Gliding R 50% no change in pain, feels stiff in the back and legs Side Gliding L 50% no change in pain, feels stiff in the back and legs Dermatomes Sensation: grossly intact Muscle Strength: Hip Flexion Right: 4 Left: 4 Knee extension Right: 4+ Left: 4+ Ankle DF Right: 5 Left: 5 Ankle PF Right: 5 Left: 5 Knee flexion Right: 5 Left: 5 Hip extension Right: 4+ Left: 4+ Hip ABD Right: 4+ Left: 4 Special Tests Slump Right: no Slump R Left: no Slump L SLR Right: no SLR R Left: no SLR L GUS Negative Bilaterally Scour Negative Bilaterally SIJ dysfunction: no SIJ Dysfunction Palpation/ Tenderness: Right side transverse processes feel more prominent compared to the left side at L1-3 She denies tenderness to palpation of the lumbar vertebrae and surrounding paraspinal muscles FOTO Score: 50 Treatments: Physical Therapy Exercise Log - 09/10/20 1400 OTHER Notes Visit 1: 1:10 - 1:52 Therapeutic Exercise (66855) Intervention provided written HEP handouts consisting of the following: Parameters LTR Intervention SKTC Parameters PPTs Intervention seated piriformis and HS stretches PT Treatment Times Total Treatment Time 42 Goals: Physical Therapy Ortho Goals: MOBILITY: Patient will be able to ambulate for >30 minutes in community without difficulty in 6 weeks. MOBILITY: Patient will be able to ascend/descend stairs without difficulty in 6 weeks. CARRYING/MOVING/HANDLING: Patient will be able to lift and carry up to 20 lbs in 6 weeks CHANGING MAINTAINING POSITON: Patient will be able to stand for >30 minutes to complete ADLs/IADLs without difficulty in 6 weeks IMPAIRMENT: Patient will demonstrate improved postural awareness in PT sessions to facilitate mechanical alignment and function in 3 weeks. IMPAIRMENT: Improve pain from 7/10 to <3/10 during prolonged standing and walking in 6 weeks IMPAIRMENT: Improve gross MMT of Bilateral Hips to 5/5 in 6 weeks IMPAIRMENT: Improve AROM of Bilateral Lumbar Side Gliding to 25% movement loss or less in 6 weeks. OTHER: Patient will increase FOTO score from 50 to at least 60 to show MDC/MCII and expected functional outcome in 6 weeks. OTHER: Patient will be able to properly demonstrate independence with HEP in 1 week. CPT Code 74003 Low 38068 Moderate 92483 High History 0 1-2 3+ Comorbidities: anxiety, cancer, DM, HTN and OA, Personal factors: chronicity or severity of the current condition Examination of body systems (elements of body structures & functions, activity limitations, and/or participation restrictions) 1-2 elements 3+ elements 4+ elements See below clinical impression Clinical Presentation Stable Evolving Unstable As evidenced by reproduction of or changes in symptoms with certain movements and pt report of overall worsening of symtpoms over time Decision Making Low (FOTO >/= 69) Moderate (FOTO 34 - 68) High (FOTO </= 33) FOTO score= 50 Pt is a 55 y.o. female who presents to PT services with c/o low back pain and right leg pain. Upon assessment, pt has been found with the following impairments: impaired posture, decreased ROM, decreased strength, antalgic gait and pain. 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 The pt would benefit from skilled PT services focused on the above listed impairments and limitations in order to safely progress pt to their desired level of function. Pt to be discharged from OP PT services if/when goals are met, if they fail to make progress with conservative management in PT, if their level of progress plateaus, or if they do not maintain compliance with attendance or HEP. At this time, it is my clinical judgment that services are medically necessary. Plan of Care Frequency of Visits: 2 times per week Duration: 6 weeks Interventions: Therapeutic Exercise, Neuromuscular Re-Education, Manual Therapy, Therapeutic/ Functional Activities, Hot/Cold Pack and Electrical Stimulation Rehab Potential: fair Suicide Screen Signs and Symptoms of Abuse/Neglect: No Actions Taken: No Suicide Risk: Does the patient feel like ending their life today?No Actions Taken: No Patient Education Provided Pt was educated on the benefits of therapy and importance of compliance with sessions and HEP for rehabilitation. Pt was also educated on treatment diagnosis, POC, and frequency/duration of treatment. Clinical Impression Pt would benefit from PT interventions for possible lumbar strain/sprain to address impairments in posture, trunk ROM, LE strength and core stability as well as pain control. [facility] PT State License, [id number] documented in this encounter [facility] Evaluation note Note Date & Type Note Facility documented in this encounter [facility] Assessments Diagnosis Right thigh pain Pain in limb Low back pain without sciatica, unspecified back pain laterality, unspecified chronicity Diagnosis Joint swelling- Primary Effusion of joint, site unspecified Encounter to establish care Bilateral low back pain with right-sided sciatica, unspecified chronicity Dry skin dermatitis Contact dermatitis and other eczema due to other specified agent Degeneration of lumbar intervertebral disc Degeneration of lumbar or lumbosacral intervertebral disc Cervical spondylosis Cervical spondylosis without myelopathy Diagnosis Arthralgia of both hands- Primary Diagnosis Bilateral low back pain with right-sided sciatica, unspecified chronicity Diagnosis Acute bilateral low back pain with right-sided sciatica- Primary Diagnosis Type 2 diabetes mellitus without complication, with long-term current use of insulin (HCC)- Primary Anxiety and depression Hyperlipidemia, unspecified hyperlipidemia type Dyshidrotic eczema Degeneration of lumbar intervertebral disc Degeneration of lumbar or lumbosacral intervertebral disc Diagnosis Type 2 diabetes mellitus without complication, with long-term current use of insulin (HCC) Hyperlipidemia, unspecified hyperlipidemia type Summary Purpose Family History No Family History Records FoundNo Family History Records FoundNo Family History Records FoundNo Family History Records FoundNo Family History Records Found Advance Directives No Advanced Directives Records FoundDocuments on File Type Date Recorded Patient Dynamics Ax Developer Expl anation Advance Directives and Living Will Documents on File Type Date Recorded Patient Dynamics Ax Developer Expl anation Advance Directives and Living Will Reason for Referral Status Reason Specialty Diagnoses / Procedures Referred By Contact Referred To Contact Authorized Rehabilitation Diagnoses Bilateral low back pain with right-sided sciatica, unspecified chronicity Oli Valentino MD [address] [place] [address] [id number] Status Reason Specialty Diagnoses / Procedures Referred By Contact Referred To Contact Authorized Specialty Services Required/[facility] Diagnoses Type 2 diabetes mellitus without complication, with long-term current use of insulin (HCC) Oli Valentino MD [facility] [place] [id number] Status Reason Specialty Diagnoses / Procedures Referred By Contact Referred To Contact Closed Oli Valentino MD [address] [place] [address] Instructions * Patient Instructions* Oli Valentino MD - 09/04/2020 12:35 PM EST Problem List Items Addressed This Visit Nervous and Auditory Bilateral low back pain with right-sided sciatica Relevant Orders Ambulatory Ref to [facility] (PT/OT/ST) Musculoskeletal and Integument Dry skin dermatitis Mositurizing your hand several times per day as CeraVe, Vaseline ointment. Other Encounter to establish care Relevant Orders Comprehensive Metabolic Panel TSH with Reflex Free T4 Joint swelling - Primary Relevant Orders Comprehensive Metabolic Panel CCP Antibody Rheumatoid factor RAS If any referrals were placed at the time of your visit please allow 2 weeks for processing. If you haven't heard from anyone within 2 weeks please contact my office so we can look into the status of your referral. If you were given any labs today please ensure they are completed according to the directions given. Once labs are completed please allow 1-2 weeks for us to receive the results, review them, and letyou know what steps, if any, are needed next. If you haven't heard from us after that please call to inquire. If labs were ordered to be done PRIOR to your next visit we will discuss the results at the time ofyour office visit. If any procedures or imaging studies were ordered that must be prior authorized please give us 2 weeks to get them approved. Once approved someone should call you to schedule them or give you a date and time that they were scheduled for. If you haven't heard anything within 2 weeks of the office visit please call the office so we can look into their status. Customer Service/Billing Questions: [phone] MyChart Assistance: [phone] or [phone] Financial Assistance: [phone] or [phone] As of July 29, 2019 my schedule will be changing: Monday 7 am to 5 pm Monday 7 am to 5 pm Monday closed 7 am to 5 pm Monday 7 am to 1 pm documented in this encounter* Patient Instructions* Oli Valentino MD - 09/25/2020 11:56 AM EST Learning About the Mediterranean Diet What is the Mediterranean diet? The Mediterranean diet is a style of eating rather than a diet plan. It features foods eaten in [place], [place], southern [place], and other countries along the [place] Sea. It emphasizes eating foods like fish, fruits, vegetables, beans, high-fiber breads and whole grains, nuts, and olive oil. This style of eating includes limited red meat, cheese, and sweets. Why choose the Mediterranean diet? A Mediterranean-style diet may improve heart health. It contains more fat than other heart-healthy diets. But the fats are mainly from nuts, unsaturated oils (such as fish oils and olive oil), and certain nut or seed oils (such as canola, soybean, or flaxseed oil). These fats may help protect the heart and blood vessels. How can you get started on the Mediterranean diet? Here are some things you can do to switch to a more Mediterranean way of eating. What to eat Eat a variety of fruits and vegetables each day, such as grapes, blueberries, tomatoes, broccoli, peppers, figs, olives, spinach, eggplant, beans, lentils, and chickpeas. Eat a variety of whole-grain foods each day, such as oats, brown rice, and whole wheat bread, pasta, and couscous. Eat fish at least 2 times a week. Try tuna, salmon, mackerel, goldstein trout, avitia, or sardines. Eat moderate amounts of low-fat dairy products, such as milk, cheese, or yogurt. Eat moderate amounts of poultry and eggs. Choose healthy (unsaturated) fats, such as nuts, olive oil, and certain nut or seed oils like canola, soybean, and flaxseed. Limit unhealthy (saturated) fats, such as butter, palm oil, and coconut oil. And limit fats found in animal products, such as meat and dairy products made with whole milk. Try to eat red meat only a few times a month in very small amounts. Limit sweets and desserts to only a few times a week. This includes sugar- sweetened drinks like soda. The Mediterranean diet may also include red wine with your meal 1 glass each day for women and up to 2 glasses a day for men. Tips for eating at home Use herbs, spices, garlic, lemon zest, and citrus juice instead of salt to add flavor to foods. Add avocado slices to your sandwich instead of sequeira. Have fish for lunch or dinner instead of red meat. [place] the fish with olive oil, and broil or grill it. Sprinkle your salad with seeds or nuts instead of cheese. Cook with olive or canola oil instead of butter or oils that are high in saturated fat. Switch from 2% milk or whole milk to 1% or fat-free milk. Dip raw vegetables in a vinaigrette dressing or hummus instead of dips made from mayonnaise or sourcream. Have a piece of fruit for dessert instead of a piece of cake. Try baked apples, or have some dried fruit. Tips for eating out Try broiled, grilled, baked, or poached fish instead of having it fried or breaded. Ask your observer electrical prospecting to have your meals prepared with olive oil instead of butter. Order dishes made with marinara sauce or sauces made from olive oil. Avoid sauces made from cream or mayonnaise. Choose whole-grain breads, whole wheat pasta and pizza crust, brown rice, beans, and lentils. Cut back on butter or margarine on bread. Instead, you can dip your bread in a small amount of olive oil. Ask for a side salad or grilled vegetables instead of yemeni fries or chips. Where can you learn more? Log into your personal health record on https://QualMetrixt.Firework and enter O407 in the Education box to learn more about Learning About the Mediterranean Diet. Current as of: December 18, 2019 Content Version: 12.7 3171-3764 [employer]. Care instructions adapted under license by your healthcare professional. If you have questions about a medical condition or this instruction, always ask your healthcare professional. [employer] disclaims any warranty or liability for your use of this information. Problem List Items Addressed This Visit Endocrine Type 2 diabetes mellitus without complication (HCC) - Primary ASCVD risk score is 3.6% for patient still recommended to be on moderate intensity statin. 09/25/2020 Ramsey Quick [address] [place] [address] DIABETES PATIENT REPORT CARD Dear Ramsey Quick, Your success at managing your diabetes is important to us. There are nationally recognized guidelines we follow for all our patients. If met, patients live longer, healthier lives. I am writing to update you on how you and I are doing at managing your diabetes. 1. Hemoglobin A1C is an average measure of your sugar control over the last 3 months. The [place] Diabetes Association (ADA) has set a goal of less than 7% for adults (normal 6% or below). Less than7.5% is preferred for older citizens. Your last A1C: No components found for: HBA1C Self monitoring is an important aspect of your diabetic care that you can do on a day-to-day basis.The [place] Diabetes Association suggests the following targets for most non adults with diabetes. More or less stringent glycemic goals may be appropriate for each individual. Preprandial plasma glucose (before a meal) 70 130 mg/dl Postprandial plasma glucose (after a meal) <180 mg/dl 2. Cholesterol Management is critical for diabetics to prevent heart attacks, strokes and hardeningof the arteries (peripheral arterial disease PAD ). The [place] Diabetes Association's (ADA) goalis to have an LDL less than 100 mg/dL if you have no cardiovascular disease and less than 70 mg/dL if you have cardiovascular disease. Your Last Lipid Panel: Lab Results Component Value Date CHOL 186 09/04/2020 TRIG 68 09/04/2020 HDL 69 09/04/2020 3. Blood Pressure Management is critical to prevent heart attacks, strokes, congestive heart failure, and kidney failure. Using medications to control your blood pressure is essential. The recommendations for blood pressure goals for patients with diabetes is less than 140/90 Your last BP: BP Readings from Last 3 Encounters: 09/04/20 124/79 4. Annual Diabetic Eye Exams are important to prevent blindness in diabetics. You should have a detailed dilated retinal eye examination by an eye professional at least yearly. 5. Urine Microalbumin is a test that we use to identify diabetic patients who may be at risk of developing kidney problems leading to dialysis. If you have microalbumin in your urine, there are medications that can help prevent the progression of kidney disease. Your last Urine Microalbumin: No results found for: MICROALBUMIN No components found for: DEREK LOVELL 6. Immunizations are essential to prevent pneumonia and flu in patients with diabetes who are more susceptible for these conditions. You should receive a pneumonia vaccination at least once and a flushot early each Fall. [place] Diabetes Association (ADA) Goal: Pneumonia shot once before age 65 and once after 65 [place] [employer] Association (ADA) Goal: Flu shot every year Hepatitis B Vaccine series completion 7. Daily Exercise is an important goal to aim for in your treatment of diabetes. People with pre-diabetes, diabetes, or the general adult public should aim for a minimum of 30 minutes most days. Walking, gardening, doing yard work, swimming, or cleaning house will all work to meet this goal. Anything that increases your heart rate and causes you to break a light sweat. Do these guidelines seem hard to fit in to your busy life? It s not easy to find the time. You won t go from zero to thirty or sixty (minutes), in a day or week. Take one step at a time. Slowly build up to your goal. 8. Healthy eating is the cornerstone to controlling your diabetes and eating well is one of life's greatest pleasures. Fortunately, having diabetes does not prevent you from enjoying a wide variety of foods. People with diabetes have the same nutritional needs as anyone else. Learn to eat well-balanced meals in the correct amounts, stay fit, and take your prescribed medications, and you can thrive with diabetes. For more information or recipe ideas, please visit: http://www.diabetes.org/wtml-pyg-cuxnikl/food/ Http://www.choosemyplate.gov/ 9. Mood can often be overlooked as a factor in how well diabetes is controlled. Research shows thatdepression and diabetes are directly related. Working with your doctor to discuss any symptoms of depression and get help if needed is extremely important. Symptoms of depression include changes in your sleep pattern (sleeping too much or too little), changes in appetite (more or less), decreased energy, decreased interest or enjoyment in hobbies or social settings that were previously enjoyable,poor concentration, increased feelings of guilt, physical slowing and lethargy, feeling sad and down, and thoughts of or suicide. If you have a history of depression or are concerned that you are depressed, make sure to communicate at each visit how your mood is so that we can work together to improve your health and wellbeing. We look forward to working with you to treat your diabetes. Please let me know if you have any questions. Thank you, Oli Gomes [facility] Relevant Orders POC Glycosylated Hemoglobin (Hb A1C) (Completed) Microalbumin, Urine, Random Other Anxiety and depression If any referrals were placed at the time of your visit please allow 2 weeks for processing. If you haven't heard from anyone within 2 weeks please contact my office so we can look into the status of your referral. If you were given any labs today please ensure they are completed according to the directions given. Once labs are completed please allow 1-2 weeks for us to receive the results, review them, and letyou know what steps, if any, are needed next. If you haven't heard from us after that please call to inquire. If labs were ordered to be done PRIOR to your next visit we will discuss the results at the time ofyour office visit. If any procedures or imaging studies were ordered that must be prior authorized please give us 2 weeks to get them approved. Once approved someone should call you to schedule them or give you a date and time that they were scheduled for. If you haven't heard anything within 2 weeks of the office visit please call the office so we can look into their status. Customer Service/Billing Questions: [phone] MyChart Assistance: [phone] or [phone] Financial Assistance: [phone] or [phone] As of July 29, 2019 my schedule will be changing: Monday 7 am to 5 pm Monday 7 am to 5 pm Monday closed 7 am to 5 pm Monday 7 am to 1 pm documented in this encounter History of Present Illness * Oli Valentino MD - 09/04/2020 11:46 AM EST Chief Complaint Patient presents with Establish Care DM, neuropathy, arthritis, low back pain HPI: Ramsey Quick is a 55-year-old female presenting today to establish care with multiple new concerns. PMH of anxiety, arthritis, endometrial cancer s/p hysterectomy with chemo and radiation, diabetes on insulin, hypertension, hyperlipidemia, neuropathy, degenerative low back pain and arthritis. Hypertension: Has been controlled, compliant on lisinopril 10 mg. Diabetes: Diagnosed years ago, has been tried on Jardiance at one point which gave her bad fungal urinary infections and vaginal itching for which she stopped it. Currently on Metformin 1000 mg twicedaily as well as Lantus 15 units. Arthritis: Has been bothered for the last 2 years with multiple small joint arthritis in her hands, her hands would swell up specially in the ring fingers and little fingers with the small joints, intermittently tender to touch. Always using her hands daily with housework as well as gardening. Has not tried anything to alleviate those symptoms, has never been worked up for rheumatologic causes or had imaging of her hands. Has tried to go to physical therapy to help with her arthritis with minimal relief. Denies any other small or big joint pains or swelling. Low back pain: Has injured her her back around 20 years ago where she had a heavy weight that hurt her back. Sincethat time she has been endorsing some degree of back pain, has been recently getting worse whenevershe carries heavy tyler jars in the kitchen. Sometimes with sitting for a long time she would get shooting pains down her right leg. Denies any weakness in her lower legs. Anxiety: Managed with behavioral counseling at this time. Past Medical History: Diagnosis Date Anxiety Arthritis Cancer (HCC) endometerial cancer Diabetes mellitus (HCC) Hypertension Neuromuscular disorder (HCC) Past Surgical History: Procedure Laterality Date HYSTERECTOMY (CERVIX REMOVED) Family History Problem Relation Age of Onset Cancer Mother bladder Cancer Father lung and liver Alcohol abuse Father Cancer Maternal Aunt colon Social History Tobacco Use Smoking status: Never Smoker Smokeless tobacco: Never Used Substance Use Topics Alcohol use: Never Frequency: Never Drug use: Never Review of Systems Physical Exam Constitutional: General: She is not in acute distress. Appearance: She is normal weight. She is not ill-appearing. HENT: Head: Normocephalic and atraumatic. Eyes: Extraocular Movements: Extraocular movements intact. Conjunctiva/sclera: Conjunctivae normal. Pupils: Pupils are equal, round, and reactive to light. Neck: Musculoskeletal: Normal range of motion and neck supple. No neck rigidity or muscular tenderness. Cardiovascular: Rate and Rhythm: Normal rate and regular rhythm. Pulses: Normal pulses. Heart sounds: Normal heart sounds. No murmur. No gallop. Pulmonary: Effort: Pulmonary effort is normal. Breath sounds: Normal breath sounds. No wheezing, rhonchi or rales. Chest: Chest wall: No tenderness. Abdominal: General: Abdomen is flat. Bowel sounds are normal. There is no distension. Palpations: Abdomen is soft. There is no mass. Tenderness: There is no abdominal tenderness. There is no right CVA tenderness, left CVA tenderness, guarding or rebound. Musculoskeletal: Normal range of motion. General: Swelling (small joints of the hand especially the fourth finger on left side, no tenderness appreciated. Heberden's nodules are also appreciated on exam.) present. No tenderness. Right lower leg: No edema. Left lower leg: No edema. Lymphadenopathy: Cervical: No cervical adenopathy. Skin: General: Skin is warm and dry. Findings: Erythema and rash present. Comments: Bilateral hand dry skin, scaliness and erythematous. Neurological: General: No focal deficit present. Mental Status: She is alert and oriented to person, place, and time. Sensory: No sensory deficit. Motor: No weakness. Gait: Gait normal. Psychiatric: Mood and Affect: Mood normal. Behavior: Behavior normal. Thought Content: Thought content normal. Judgment: Judgment normal. OARRS/NARxCHECK Report Received and Assessed: No data found Date controlled substance agreement signed: No data found Date of last drug screen: No data found Functional Assessment: No data found Patient's Medications New Prescriptions No medications on file Previous Medications CHOLECALCIFEROL, VITAMIN D3, 125 MCG (5,000 UNIT) CAPSULE CLOBETASOL (TEMOVATE) 0.05 % OINTMENT APPLY TWICE DAILY TO HANDS FOR TWO WEEKS FREESTYLE 28 GAUGE LANCETS CHECK BLOOD SUGARS THREE TIMES DAILY FREESTYLE LITE STRIPS STRIPS CHECK BLOOD SUGAR THREE TIMES DAILY GABAPENTIN (NEURONTIN) 100 MG CAPSULE Take 100 mg by mouth 3 (three) times a day . LANTUS SOLOSTAR U-100 INSULIN 100 UNIT/ML (3 ML) INPN Inject 15 Units under the skin daily . LISINOPRIL (PRINIVIL,ZESTRIL) 10 MG TABLET Take 10 mg by mouth daily . METFORMIN (GLUCOPHAGE) 500 MG TABLET Take 1,000 mg by mouth 2 (two) times a day . MULTIVITAMIN WITH MINERALS TABLET Take 1 tablet by mouth daily . MYRBETRIQ 50 MG TB24 TAKE 2 TABLETS ORALLY ONCE PER DAY FOR 30 DAYS UNIFINE PENTIPS 32 GAUGE X 5/32 NDLE Modified Medications No medications on file Discontinued Medications AMOXICILLIN (AMOXIL) 500 MG CAPSULE TAKE 1 CAPSULE EVERY 8HRS CLINDAMYCIN (CLEOCIN) 150 MG CAPSULE Take 150 mg by mouth 3 (three) times a day . MICONAZOLE (MICOTIN) 2 % CREAM Health Maintenance Due Topic Date Due Mammogram 1965 Pap Smear 1965 A1C 1965 Wellness Visit 01/29/1968 Foot Exam 1975 Ophthalmology Exam 1975 Urine Microalbumin 1975 HIV Screening 01/29/1980 Hepatitis C Screening 1983 Zoster Vaccines (1 of 2) 2015 Sequential Influenza Vaccine (1) 03/24/2020 Assessment & Plan Problem List Items Addressed This Visit Nervous and Auditory Bilateral low back pain with right-sided sciatica Relevant Orders Ambulatory Ref to [facility] (PT/OT/ST) Musculoskeletal and Integument Degeneration of lumbar intervertebral disc Xray in July 2020 showing degenerative disease with spondylosis mainly in L1- L2 as well as L5-S1. Symptoms of sciatica was also reported which adds to her neuropathic pain. No concern for spinal stenosis at this time. -Continue on gabapentin at the current dose -Continue to assess her level of functioning and activity, as well as severity of symptoms -Refer to physical therapy for core strengthening Dry skin dermatitis Mositurizing your hand several times per day as CeraVe, Vaseline ointment. Wear protective gloves while working around the house or gardening. Steroid ointment 2 weeks at a time. Any flares just contact me or your campaign management specialist Cervical spondylosis X-ray done in July 2020 showing cervical spondylosis and severe degenerative disease. Other Encounter to establish care Relevant Orders Comprehensive Metabolic Panel TSH with Reflex Free T4 Lipid Panel Joint swelling - Primary Multiple small hand joints , most likely related to osteoarthritis from overuse over the years. Evidence of Heberden's nodules. Low concern for rheumatoid arthritis , doesn't run in the family but cannot be entirely excluded given evidence of warmth and swelling in the hand joints today. - Labs today, may consider further imaging in future visits. Relevant Orders Comprehensive Metabolic Panel CCP Antibody Rheumatoid factor RAS Return in about 2 weeks (around 09/18/2020). Plan to discuss diabetes and other chronic concerns. OLI VALENTINO MD [facility] [address] [facility] [address] [facility] [id number] Dept: [phone] Depression Screening 09/04/2020 Little interest or pleasure in doing things 0 Feeling down, depressed, or hopeless 1 PHQ-2 Total Score 1 Trouble falling or staying asleep, or sleeping too much 1 Feeling tired or having little energy 1 Poor appetite or overeating 2 Feeling bad about yourself - or that you are a failure or have let yourself or your family down 1 Trouble concentrating on things, such as reading the newspaper or watching television 0 Moving or speaking so slowly that other people could have noticed. Or the opposite - being so fidgety or restless that you have been moving around a lot more than usual 0 Thoughts that you would be better off , or of hurting yourself in some way 0 PHQ-9 Total Score 6 If you checked off any problems, how difficult have these problems made it for you to do your work,take care of things at home, or get along with other people? Somewhat difficult documented in this encounter* Toro Lucio, PT - 09/10/2020 1:00 PM EST [facility] Evaluation Today's Date 09/10/2020 Patient Name: Ramsey Quick Date of : 1965 Case Name: Low Back Pain Functional Diagnosis: 1. Bilateral low back pain with right-sided sciatica, unspecified chronicity Clinical Information: Subjective Referring Diagnosis: Bilateral Low Back Pain w/ Right Side Sciatica Follow-up with physician: 09/25/2020 History of Present Illness Date of Onset: years. Subjective History: Pt reports c/o chronic bilateral low back worsening over the years. She also reports occasional pain in the right buttock and posterior thigh, especially with prolonged sitting. This began after falling onto her left side on concrete. She reports h/o DM and previous chemotherapycausing peripheral neuropathy. She has been seeing a Chiropractor off and on since 2014. She was given a brace about 2 years ago but has discontinued wearing it. Previous Imaging: X-ray (July 2020) Pain Scale: Pain location: lumbar spine Average Pain: 5/10 Pain at highest: 7/10 Aggravating factors: pushing, pulling, lifting, carrying Easing factors: rest, medication 24 Hour Symptom Behavior Morning Pain: sudden End of day pain: worse Personal Goals: Decrease pain and improve activity tolerance Functional Mobility Status Functional Limitations: standing and sitting Current Activity Level: active Social Support: Mosque, social, or cultural considerations to be made aware of before starting treatment: No Home Environment: Current Home Environment: Setup: multi-level house First floor: half bath Second floor: bedroom and full bathActivities of Daily Living: independent with all Instrumental Activities of Daily Living: Laundry: increased time and effort Housekeeping: Heavy Cleaning: needs some assistance Basic Home Maintenance: needs some assitance Yardwork: Gardening: needs some assistance Mowing: needs some assistance Current Vocational Participation: unemployeed Sleep Assessment Preferred sleep position: supine Sleep disturbance: Sleep Disturbance Red Flags: history of cancer Comments: Barriers to Care: None Mosque, social, or cultural considerations to be made aware of before starting treatment: No Lumbar Spine Posture: reduced lordosis and thoracic kyphosis Asymmetrics: Leg length: right longer <1 cm - possible anterior innomintae rotation Trunk AROM: Baseline pain level and symptom location: Mild aching pain in the low back, no pain in the buttock or thigh, tingling in the feet Movement Loss % of Loss Description Flexion 25% no change in pain Extension 0% no change in pain Side Gliding R 50% no change in pain, feels stiff in the back and legs Side Gliding L 50% no change in pain, feels stiff in the back and legs Dermatomes Sensation: grossly intact Muscle Strength: Hip Flexion Right: 4 Left: 4 Knee extension Right: 4+ Left: 4+ Ankle DF Right: 5 Left: 5 Ankle PF Right: 5 Left: 5 Knee flexion Right: 5 Left: 5 Hip extension Right: 4+ Left: 4+ Hip ABD Right: 4+ Left: 4 Special Tests Slump Right: no Slump R Left: no Slump L SLR Right: no SLR R Left: no SLR L GUS Negative Bilaterally Scour Negative Bilaterally SIJ dysfunction: no SIJ Dysfunction Palpation/ Tenderness: Right side transverse processes feel more prominent compared to the left side at L1-3 She denies tenderness to palpation of the lumbar vertebrae and surrounding paraspinal muscles FOTO Score: 50 Treatments: Physical Therapy Exercise Log - 09/10/20 1400 OTHER Notes Visit 1: 1:10 - 1:52 Therapeutic Exercise (33791) Intervention provided written HEP handouts consisting of the following: Parameters LTR Intervention SKTC Parameters PPTs Intervention seated piriformis and HS stretches PT Treatment Times Total Treatment Time 42 Goals: Physical Therapy Ortho Goals: MOBILITY: Patient will be able to ambulate for >30 minutes in community without difficulty in 6 weeks. MOBILITY: Patient will be able to ascend/descend stairs without difficulty in 6 weeks. CARRYING/MOVING/HANDLING: Patient will be able to lift and carry up to 20 lbs in 6 weeks CHANGING MAINTAINING POSITON: Patient will be able to stand for >30 minutes to complete ADLs/IADLs without difficulty in 6 weeks IMPAIRMENT: Patient will demonstrate improved postural awareness in PT sessions to facilitate mechanical alignment and function in 3 weeks. IMPAIRMENT: Improve pain from 7/10 to <3/10 during prolonged standing and walking in 6 weeks IMPAIRMENT: Improve gross MMT of Bilateral Hips to 5/5 in 6 weeks IMPAIRMENT: Improve AROM of Bilateral Lumbar Side Gliding to 25% movement loss or less in 6 weeks. OTHER: Patient will increase FOTO score from 50 to at least 60 to show MDC/MCII and expected functional outcome in 6 weeks. OTHER: Patient will be able to properly demonstrate independence with HEP in 1 week. CPT Code 89390 Low 12395 Moderate 50159 High History 0 1-2 3+ Comorbidities: anxiety, cancer, DM, HTN and OA, Personal factors: chronicity or severity of the current condition Examination of body systems (elements of body structures & functions, activity limitations, and/or participation restrictions) 1-2 elements 3+ elements 4+ elements See below clinical impression Clinical Presentation Stable Evolving Unstable As evidenced by reproduction of or changes in symptoms with certain movements and pt report of overall worsening of symtpoms over time Decision Making Low (FOTO >/= 69) Moderate (FOTO 34 - 68) High (FOTO </= 33) FOTO score= 50 Pt is a 55 y.o. female who presents to PT services with c/o low back pain and right leg pain. Upon assessment, pt has been found with the following impairments: impaired posture, decreased ROM, decreased strength, antalgic gait and pain. 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 The pt would benefit from skilled PT services focused on the above listed impairmentsand limitations in order to safely progress pt to their desired level of function. Pt to be discharged from OP PT services if/when goals are met, if they fail to make progress with conservative management in PT, if their level of progress plateaus, or if they do not maintain compliance with attendance or HEP. At this time, it is my clinical judgment that services are medically necessary. Plan of Care Frequency of Visits: 2 times per week Duration: 6 weeks Interventions: Therapeutic Exercise, Neuromuscular Re-Education, Manual Therapy, Therapeutic/ Functional Activities, Hot/Cold Pack and Electrical Stimulation Rehab Potential: fair Suicide Screen Signs and Symptoms of Abuse/Neglect: No Actions Taken: No Suicide Risk: Does the patient feel like ending their life today?No Actions Taken: No Patient Education Provided Pt was educated on the benefits of therapy and importance of compliance with sessions and HEP for rehabilitation. Pt was also educated on treatment diagnosis, POC, and frequency/duration of treatment. Clinical Impression Pt would benefit from PT interventions for possible lumbar strain/sprain to address impairments in posture, trunk ROM, LE strength and core stability as well as pain control. Toro Lucio PT State License, [id number] documented in this encounter* Abigail Jones, [employer]ARD GENER[employer] CAR SUPERVISOR - 09/18/2020 4:45 PM EST [facility] DAILY TREATMENT NOTE Today's Date 09/18/2020 Patient Name: Ramsey Quick Date of : 1965 Current Visit #: 2 Authorized Visits: 30 Case Name: Low Back Pain History: Pre-Treatment Pain Scale: 4 Symptoms: stabilized Functional Diagnosis: 1. Acute bilateral low back pain with right-sided sciatica Clinical Information: Subjective: Pt reports back pain today but stated she wasn't able to do her HEP this morning. Objective Treatments: Physical Therapy Exercise Log - 09/18/20 1650 OTHER Precautions/Contraindications Units allowed: 72 Therex, 24 Neuro Halie, 24 Manual, 24 Hot Pack, 24 E-Stim Notes Visit 2: 4:50 - 5:23 Vitals Units used: Therapeutic Exercise (65080) Intervention provided written HEP handouts consisting of the following: Parameters LTR - 10 sec x10 Intervention SKTC - 20 sec x5 Parameters PPTs 5 sec x10 Intervention seated piriformis and HS stretches - 20 sec x5 Parameters Marches with abdominal bracing - x20 Intervention Hip abd/add - x10 bolster/RTB Parameters SLR - x10 bilat Intervention Bridges - x10 Parameters LA roll - x10 GSB PT Treatment Times Therex Total Time 33 Direct Treatment Time 33 Total Treatment Time 33 Goals: Physical Therapy Ortho Goals: MOBILITY: Patient will be able to ambulate for >30 minutes in community without difficulty in 6 weeks. MOBILITY: Patient will be able to ascend/descend stairs without difficulty in 6 weeks. CARRYING/MOVING/HANDLING: Patient will be able to lift and carry up to 20 lbs in 6 weeks CHANGING MAINTAINING POSITON: Patient will be able to stand for >30 minutes to complete ADLs/IADLs without difficulty in 6 weeks IMPAIRMENT: Patient will demonstrate improved postural awareness in PT sessions to facilitate mechanical alignment and function in 3 weeks. IMPAIRMENT: Improve pain from 7/10 to <3/10 during prolonged standing and walking in 6 weeks IMPAIRMENT: Improve gross MMT of Bilateral Hips to 5/5 in 6 weeks IMPAIRMENT: Improve AROM of Bilateral Lumbar Side Gliding to 25% movement loss or less in 6 weeks. OTHER: Patient will increase FOTO score from 50 to at least 60 to show MDC/MCII and expected functional outcome in 6 weeks. OTHER: Patient will be able to properly demonstrate independence with HEP in 1 week. Patient Education: Quality of movement with patient demonstrated understanding. Post-Treatment Pain Scale: 4 Assessment: Patient had an expected response to treatment. Skilled Intervention demonstrated by modifications of treatment per exercise log including increased load and safety interventions per exercise log. Progress towards goals as expected. Plan for Next Visit: Treatment Visit with focus on core strength and stability Abigail Jones PTA STATE LICENSE, [id number] documented in this encounter* Abigail Jones PTA - 09/21/2020 1:00 PM EST [facility] DAILY TREATMENT NOTE Today's Date 09/21/2020 Patient Name: Ramsey Quick Date of : 1965 Current Visit #: 3 Authorized Visits: 30 Case Name: Low Back Pain History: Pre-Treatment Pain Scale: 0 Symptoms: gradually improved Functional Diagnosis: 1. Acute bilateral low back pain with right-sided sciatica Clinical Information: Subjective: Pt reports back was hurting yesterday from lifting and cleaning. Pt also reports stiffness today in back. Pt not compliant with HEP Objective Treatments: Physical Therapy Exercise Log - 09/21/20 1300 OTHER Precautions/Contraindications Units allowed: 72 Therex, 24 Neuro Halie, 24 Manual, 24 Hot Pack, 24 E-Stim Notes Visit 3: 1:00 - 1:35 Vitals Units used: Therapeutic Exercise (14854) Intervention provided written HEP handouts consisting of the following: Parameters LTR - 10 sec x10 Intervention SKTC - 20 sec x5 Parameters PPTs 5 sec x15 Intervention piriformis and HS stretches - 20 sec x5 Parameters Marches with abdominal bracing - x20 Intervention Hip abd/add - x15 bolster/GTB Parameters SLR - 2x10 bilat Intervention Bridges - x15 Parameters LA roll - x15 GSB Intervention Clamshells - x10 Parameters Walkout - lat - x5 bilat GTT Intervention lat chops - x5 bilat GTT PT Treatment Times Therex Total Time 35 Direct Treatment Time 35 Total Treatment Time 35 Goals: Physical Therapy Ortho Goals: MOBILITY: Patient will be able to ambulate for >30 minutes in community without difficulty in 6 weeks. MOBILITY: Patient will be able to ascend/descend stairs without difficulty in 6 weeks. CARRYING/MOVING/HANDLING: Patient will be able to lift and carry up to 20 lbs in 6 weeks CHANGING MAINTAINING POSITON: Patient will be able to stand for >30 minutes to complete ADLs/IADLs without difficulty in 6 weeks IMPAIRMENT: Patient will demonstrate improved postural awareness in PT sessions to facilitate mechanical alignment and function in 3 weeks. IMPAIRMENT: Improve pain from 7/10 to <3/10 during prolonged standing and walking in 6 weeks IMPAIRMENT: Improve gross MMT of Bilateral Hips to 5/5 in 6 weeks IMPAIRMENT: Improve AROM of Bilateral Lumbar Side Gliding to 25% movement loss or less in 6 weeks. OTHER: Patient will increase FOTO score from 50 to at least 60 to show MDC/MCII and expected functional outcome in 6 weeks. OTHER: Patient will be able to properly demonstrate independence with HEP in 1 week. Patient Education: Quality of movement with patient demonstrated understanding. Post-Treatment Pain Scale: 2 Assessment: Patient had an expected response to treatment. Skilled Intervention demonstrated by modifications of treatment per exercise log including increased load and increased rate and safety interventions per exercise log. Progress towards goals as expected. Plan for Next Visit: Treatment Visit with focus on core Strength and stability Abigail Jones PTA STATE LICENSE, [id number] documented in this encounter* Bertha Gardner PTA - 09/23/2020 1:00 PM EST [facility] DAILY TREATMENT NOTE Today's Date 09/23/2020 Patient Name: Ramsey Quick Date of : 1965 Current Visit #: 4 Authorized Visits: 30 Case Name: Low Back Pain History: Pre-Treatment Pain Scale: 3 Symptoms: gradually improved Functional Diagnosis: 1. Acute bilateral low back pain with right-sided sciatica Clinical Information: Subjective: Her LB is still very sore and she's compliant with HEP. Objective Pain increase with PPT with initial stretches. Fair core control with HS curls on SB. Treatments: Physical Therapy Exercise Log - 09/23/20 1548 OTHER Precautions/Contraindications Units allowed: 72 Therex, 24 Neuro Halie, 24 Manual, 24 Hot Pack, 24 E-Stim Notes Visit 3: 1:00 - 1:35 Vitals Units used: Therapeutic Exercise (94235) Intervention provided written HEP handouts consisting of the following: Parameters LTR - 10 sec x10 Intervention SKTC - 20 sec x5 Parameters PPTs 5 sec x15 Intervention piriformis and HS stretches - 20 sec x5 Parameters Marches with abdominal bracing - x20 Intervention Hip abd/add - x15 bolster/GTB Parameters SLR - 2x10 bilat Intervention Bridges - x15 Parameters LA roll - x15 GSB Intervention Clamshells - x10 Parameters Walkout - lat - x5 bilat GTT Intervention lat chops - x5 bilat GTT PT Treatment Times Therex Total Time 35 Direct Treatment Time 35 Total Treatment Time 35 Goals: Physical Therapy Ortho Goals: MOBILITY: Patient will be able to ambulate for >30 minutes in community without difficulty in 6 weeks. MOBILITY: Patient will be able to ascend/descend stairs without difficulty in 6 weeks. CARRYING/MOVING/HANDLING: Patient will be able to lift and carry up to 20 lbs in 6 weeks CHANGING MAINTAINING POSITON: Patient will be able to stand for >30 minutes to complete ADLs/IADLs without difficulty in 6 weeks IMPAIRMENT: Patient will demonstrate improved postural awareness in PT sessions to facilitate mechanical alignment and function in 3 weeks. IMPAIRMENT: Improve pain from 7/10 to <3/10 during prolonged standing and walking in 6 weeks IMPAIRMENT: Improve gross MMT of Bilateral Hips to 5/5 in 6 weeks IMPAIRMENT: Improve AROM of Bilateral Lumbar Side Gliding to 25% movement loss or less in 6 weeks. OTHER: Patient will increase FOTO score from 50 to at least 60 to show MDC/MCII and expected functional outcome in 6 weeks. OTHER: Patient will be able to properly demonstrate independence with HEP in 1 week. Patient Education: Quality of movement with patient demonstrated understanding. Post-Treatment Pain Scale: 2 Assessment: Patient had an expected response to treatment. Skilled Intervention demonstrated by modifications of treatment per exercise log including increased load and safety interventions per exercise log. Progress towards goals as expected. Plan for Next Visit: Treatment Visit with focus on core strengthening Bertha Gardner PTA STATE LICENSE, [id number] documented in this encounter* Oli Valentino MD - 09/25/2020 11:05 AM EST Chief Complaint Patient presents with Follow-up HPI: Ramsey Quick is a 55-year-old female presenting today to for diabetes follow up. PMH of anxiety, arthritis, endometrial cancer s/p hysterectomy with chemo and radiation, diabetes on insulin, hypertension, hyperlipidemia, neuropathy, degenerative low back pain and arthritis. Hypertension: Has been controlled, compliant on lisinopril 10 mg. Diabetes: Diagnosed years ago, has been tried on Jardiance at one point which gave her bad fungal urinary infections and vaginal itching for which she stopped it. Currently on Metformin 1000 mg twicedaily as well as Lantus 15 units. Health Maintenance Checklist for Diabetes 1. Hemoglobin A1C -- ADA Goals < 7.0%, Preprandial glucose 70-130 mg/dL, Postprandial glucose <180 mg/dL No results found for: GLU 2. Urine Albumin, Creatinine -- Normal <30, Microalbuminuria 30-299, Macro Albuminuria >=300 -- Treatment of Albuminuria is recommended with DIANA or ARB -- Reduce protein to 0.8-1.0 g/kg of body weight per day in mild CKD and 0.8g/kg in more severe CKD No results found for: MICROALBUMIN No components found for: DEREK LOVELL 3. Lipid Profile - Annually -- High Dose Statin therapy regardless of LDL value for patients with diabetes and overt CVD or Diabetes and ASCVD 10 year risk > 7.5% -- Moderate Dose Statin therapy in patients with diabetes and without overt CVD - Lab Results Component Value Date CHOL 186 09/04/2020 TRIG 68 09/04/2020 HDL 69 09/04/2020 4. Blood Pressure -- Goal <140/90 BP Readings from Last 3 Encounters: 09/25/20 125/82 09/04/20 124/79 5. Immunizations -- Influenza, Pneumovax, Hepatitis B - all adults age 19-59 Immunization History Administered Date(s) Administered Influenza, Injectable, Quadrivalent 06/23/2018 Influenza, Injectable, Quadrivalent, Preservative Free 07/11/2018, 04/20/2020 Influenza, Seasonal, Injectable 05/10/2010, 07/03/2012 Influenza, Unspecified 05/10/2010, 07/03/2012 Pneumococcal Polysaccharide (Pneumovax 23) 05/10/2010, 06/23/2018, 07/11/2018 Td 01/15/2004 Tdap 10/13/2012 6. Current Medication List - Consider aspirin for men >50 and women >60 or 10 year CVD risk >10%, not indicated. 8. Diabetic Eye Exam within the last 12 months? Yes in 04/2020 9. Diabetic Foot Exam within the last 12 months? Yes in 07/2019 -- Testing for loss of protective sensation (LOPS), pulses, skin condition, anatomic deformities, shoe evaluation, consider GREY age >50 and <50 if other risk factors for PAD Risk Category Definition Treatment 0 No LOPS, No PAD, No Deformity Patient Education (PE) Advice on Protective Footwear 1 LOPS +/- Deformity PE, Consider prescriptive footwear Consider surgery if deformity cannot be accommodate 2 PAD +/- LOPS PE, Consider prescriptive footwear, Consider Vascular Surgery 3 History of ulcer or amputation PE, Consider prescriptive footwear, Consider Vascular Surgery if PAD 10. Depression/Anxiety screening and co-management -- History of depression? Yes or No -- History of anxiety? Yes or No *Assessment and plan for depression management if needed 11. Self-Management: Report Card Given to Patient in the AVS Low back pain: Has injured her her back around 20 years ago where she had a heavy weight that hurt her back. Sincethat time she has been endorsing some degree of back pain, has been recently getting worse whenevershe carries heavy tyler jars in the kitchen. Sometimes with sitting for a long time she would get shooting pains down her right leg. Denies any weakness in her lower legs. Sometimes wakes up in the middle of the night with pain in her right LE has been told she has neuropathy and was given gabapentin for it. Working with PT, still minimal improvement. Anxiety: Managed with behavioral counseling at this time still to schedule an appointment [facility]. Tried something in the past that she couldn't tolerate starting with a 'D', after which she stopped trying with medications. Under a lot of financial stress. Past Medical History: Diagnosis Date Arthritis Neuromuscular disorder (HCC) Past Surgical History: Procedure Laterality Date HYSTERECTOMY (CERVIX REMOVED) Family History Problem Relation Age of Onset Cancer Mother bladder Cancer Father lung and liver Alcohol abuse Father Cancer Maternal Aunt colon Social History Tobacco Use Smoking status: Never Smoker Smokeless tobacco: Never Used Substance Use Topics Alcohol use: Never Frequency: Never Drug use: Never Physical Exam Constitutional: General: She is not in acute distress. Appearance: She is normal weight. She is not ill-appearing. HENT: Head: Normocephalic and atraumatic. Eyes: Extraocular Movements: Extraocular movements intact. Conjunctiva/sclera: Conjunctivae normal. Pupils: Pupils are equal, round, and reactive to light. Neck: Musculoskeletal: Normal range of motion and neck supple. No neck rigidity or muscular tenderness. Cardiovascular: Rate and Rhythm: Normal rate and regular rhythm. Pulses: Normal pulses. Heart sounds: Normal heart sounds. No murmur. No gallop. Pulmonary: Effort: Pulmonary effort is normal. Breath sounds: Normal breath sounds. No wheezing, rhonchi or rales. Chest: Chest wall: No tenderness. Abdominal: General: Abdomen is flat. Bowel sounds are normal. There is no distension. Palpations: Abdomen is soft. There is no mass. Tenderness: There is no abdominal tenderness. There is no right CVA tenderness, left CVA tenderness, guarding or rebound. Musculoskeletal: Normal range of motion. General: No swelling (small joints of the hand especially the fourth finger on left side, no tenderness appreciated. Heberden's nodules are also appreciated on exam. very dry with skin breaks) or tenderness. Right lower leg: No edema. Left lower leg: No edema. Lymphadenopathy: Cervical: No cervical adenopathy. Skin: General: Skin is warm and dry. Findings: Erythema and rash present. Comments: Bilateral hand dry skin, scaliness and erythematous. Neurological: General: No focal deficit present. Mental Status: She is alert and oriented to person, place, and time. Sensory: No sensory deficit. Motor: No weakness. Gait: Gait normal. Psychiatric: Mood and Affect: Mood normal. Behavior: Behavior normal. Thought Content: Thought content normal. Judgment: Judgment normal. OARRS/NARxCHECK Report Received and Assessed: No data found Date controlled substance agreement signed: No data found Date of last drug screen: No data found Functional Assessment: No data found Patient's Medications New Prescriptions ATORVASTATIN (LIPITOR) 10 MG TABLET Take 1 (one) tablet (10 mg total) by mouth daily . BLOOD-GLUCOSE METER KIT Please provide the One Touch Verio Reflect Blood Glucose meter . Previous Medications ACETAMINOPHEN (TYLENOL) 500 MG TABLET 1-2 pills po q 8 hrs prn pain. Max 3000 mg/d including amountin other medicines. CHOLECALCIFEROL, VITAMIN D3, 125 MCG (5,000 UNIT) CAPSULE GABAPENTIN (NEURONTIN) 100 MG CAPSULE Take 1 (one) capsule (100 mg total) by mouth 3 (three) times a day . LANTUS SOLOSTAR U-100 INSULIN 100 UNIT/ML (3 ML) INPN Inject 15 (fifteen) Units under the skin daily . LISINOPRIL (PRINIVIL,ZESTRIL) 10 MG TABLET Take 1 (one) tablet (10 mg total) by mouth daily . MELOXICAM (MOBIC) 7.5 MG TABLET 7.5 mg . METFORMIN (GLUCOPHAGE) 500 MG TABLET Take 2 (two) tablets (1,000 mg total) by mouth 2 (two) times aday . MULTIVITAMIN WITH MINERALS TABLET Take 1 tablet by mouth daily . UNIFINE PENTIPS 32 GAUGE X 5/32 NDLE Inject 1 Units under the skin daily . Modified Medications No medications on file Discontinued Medications EMPAGLIFLOZIN 25 MG TAB 1 Unspecified . GLIMEPIRIDE (AMARYL) 2 MG TABLET Take 2 mg by mouth 2 (two) times a day . GLIMEPIRIDE (AMARYL) 4 MG TABLET Take 4 mg by mouth every morning . Health Maintenance Due Topic Date Due Ophthalmology Exam Never done Urine Microalbumin Never done HIV Screening Never done COVID-19 Vaccine (1 of 2) Never done Hepatitis C Screening Never done Zoster Vaccines (1 of 2) Never done Assessment & Plan Problem List Items Addressed This Visit Endocrine Type 2 diabetes mellitus without complication (HCC) - Primary ASCVD risk score is 3.6% for patient still recommended to be on moderate intensity statin. 09/25/2020 Ramsey Quick [address] [place] [address] DIABETES PATIENT REPORT CARD Dear Ramsey Quick, Please check glucose 3 times/week. Your success at managing your diabetes is important to us. There are nationally recognized guidelines we follow for all our patients. If met, patients live longer, healthier lives. I am writing to update you on how you and I are doing at managing your diabetes. 1. Hemoglobin A1C is an average measure of your sugar control over the last 3 months. The [place] [employer] Association (ADA) has set a goal of less than 7% for adults (normal 6% or below). Less than7.5% is preferred for older citizens. Your last A1C: 7.2 No components found for: HBA1C Self monitoring is an important aspect of your diabetic care that you can do on a day-to-day basis.The [place] [employer] Association suggests the following targets for most non adults with diabetes. More or less stringent glycemic goals may be appropriate for each individual. Preprandial plasma glucose (before a meal) 70 130 mg/dl Postprandial plasma glucose (after a meal) <180 mg/dl 2. Cholesterol Management is critical for diabetics to prevent heart attacks, strokes and hardeningof the arteries (peripheral arterial disease PAD ). The [place] [employer] Association's (ADA) goalis to have an LDL less than 100 mg/dL if you have no cardiovascular disease and less than 70 mg/dL if you have cardiovascular disease. Your Last Lipid Panel: Lab Results Component Value Date CHOL 186 09/04/2020 TRIG 68 09/04/2020 HDL 69 09/04/2020 3. Blood Pressure Management is critical to prevent heart attacks, strokes, congestive heart failure, and kidney failure. Using medications to control your blood pressure is essential. The recommendations for blood pressure goals for patients with diabetes is less than 140/90 Your last BP: BP Readings from Last 3 Encounters: 09/25/20 125/82 09/04/20 124/79 4. Annual Diabetic Eye Exams are important to prevent blindness in diabetics. You should have a detailed dilated retinal eye examination by an eye professional at least yearly. 5. Urine Microalbumin is a test that we use to identify diabetic patients who may be at risk of developing kidney problems leading to dialysis. If you have microalbumin in your urine, there are medications that can help prevent the progression of kidney disease. Your last Urine Microalbumin: No results found for: MICROALBUMIN No components found for: DEREK LOVELL 6. Immunizations are essential to prevent pneumonia and flu in patients with diabetes who are more susceptible for these conditions. You should receive a pneumonia vaccination at least once and a flushot early each Fall. [place] [employer] (ADA) Goal: Pneumonia shot once before age 65 and once after 65 [place] [employer] (ADA) Goal: Flu shot every year Hepatitis B Vaccine series completion 7. Daily Exercise is an important goal to aim for in your treatment of diabetes. People with pre-diabetes, diabetes, or the general adult public should aim for a minimum of 30 minutes most days. Walking, gardening, doing yard work, swimming, or cleaning house will all work to meet this goal. Anything that increases your heart rate and causes you to break a light sweat. Do these guidelines seem hard to fit in to your busy life? It s not easy to find the time. You won t go from zero to thirty or sixty (minutes), in a day or week. Take one step at a time. Slowly build up to your goal. 8. Healthy eating is the cornerstone to controlling your diabetes and eating well is one of life's greatest pleasures. Fortunately, having diabetes does not prevent you from enjoying a wide variety of foods. People with diabetes have the same nutritional needs as anyone else. Learn to eat well-balanced meals in the correct amounts, stay fit, and take your prescribed medications, and you can thrive with diabetes. For more information or recipe ideas, please visit: http://www.diabetes.org/rtry-hvm-ifulcml/food/ Http://www.choosemyplate.gov/ 9. Mood can often be overlooked as a factor in how well diabetes is controlled. Research shows thatdepression and diabetes are directly related. Working with your doctor to discuss any symptoms of depression and get help if needed is extremely important. Symptoms of depression include changes in your sleep pattern (sleeping too much or too little), changes in appetite (more or less), decreased energy, decreased interest or enjoyment in hobbies or social settings that were previously enjoyable,poor concentration, increased feelings of guilt, physical slowing and lethargy, feeling sad and down, and thoughts of or suicide. If you have a history of depression or are concerned that you are depressed, make sure to communicate at each visit how your mood is so that we can work together to improve your health and wellbeing. We look forward to working with you to treat your diabetes. Please let me know if you have any questions. Thank you, Oli Valentino [facility] Relevant Medications atorvastatin (LIPITOR) 10 MG tablet Other Relevant Orders POC Glycosylated Hemoglobin (Hb A1C) (Completed) Microalbumin, Urine, Random Ambulatory referral to [facility] Musculoskeletal and Integument Degeneration of lumbar intervertebral disc Xray in July 2020 showing degenerative disease with spondylosis mainly in L1- L2 as well as L5-S1. Symptoms of sciatica was also reported which adds to her neuropathic pain. No concern for spinal stenosis at this time. 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 No concern for wart. Concerning for dyshidrotic eczema - Moisturize hand well - cover with gloves while working - if persistent will check with steroid cream Other Anxiety and depression Prefers to stick to behavioral therapy , yet to schedule an appointment at [facility] - Consider anxiolytic for next appointment - GAD7 score 5 but patient reported increased stress recently Other Visit Diagnoses Hyperlipidemia, unspecified hyperlipidemia type Relevant Medications atorvastatin (LIPITOR) 10 MG tablet I spent 60 minutes on HPI, reviewing and coordinating patient's plan of care. Return in about 4 weeks (around 10/23/2020) for Follow Up back pain, neuropathy and skin rash. OLI VALENTINO MD [facility] [address] [facility] [address] [facility] [id number] Dept: [phone] Depression Screening 09/04/2020 Little interest or pleasure in doing things 0 Feeling down, depressed, or hopeless 1 PHQ-2 Total Score 1 Trouble falling or staying asleep, or sleeping too much 1 Feeling tired or having little energy 1 Poor appetite or overeating 2 Feeling bad about yourself - or that you are a failure or have let yourself or your family down 1 Trouble concentrating on things, such as reading the newspaper or watching television 0 Moving or speaking so slowly that other people could have noticed. Or the opposite - being so fidgety or restless that you have been moving around a lot more than usual 0 Thoughts that you would be better off , or of hurting yourself in some way 0 PHQ-9 Total Score 6 If you checked off any problems, how difficult have these problems made it for you to do your work,take care of things at home, or get along with other people? Somewhat difficult documented in this encounter* Bertha Gardner, [employer]PERVISOR - 09/28/2020 1:00 PM EST [facility] DAILY TREATMENT NOTE Today's Date 09/28/2020 Patient Name: Ramsey Quick Date of : 1965 Current Visit #: 5 Authorized Visits: 30 Case Name: Low Back Pain History: Pre-Treatment Pain Scale: 5 Symptoms: gradually worsened Functional Diagnosis: 1. Acute bilateral low back pain with right-sided sciatica Clinical Information: Subjective: she thinks the bridges, Lateral rotation , and chops are making her LB worse. Objective Pt c/o pain increase in BLE groin with PPT. Slow guarded transfers and ambulation d/t pain. Treatments: Physical Therapy Exercise Log - 09/28/20 1348 OTHER Precautions/Contraindications Units allowed: 72 Therex, 24 Neuro Halie, 24 Manual, 24 Hot Pack, 24 E-Stim Notes Visit 3: 1:00 - 1:35 Vitals Units used: Therapeutic Exercise (91982) Intervention provided written HEP handouts consisting of the following: Parameters LTR - 10 sec x10 HOLD Intervention SKTC - 20 sec x5 Parameters PPTs 5 sec x15 Intervention piriformis and HS stretches - 20 sec x5 Parameters Marches with abdominal bracing - x20 Intervention Hip abd/add - x15 bolster/GTB Parameters SLR - 2x10 bilat Intervention Bridges - x15 HOLD Parameters LA roll - x15 GSB Intervention Clamshells - x10 Parameters Walkout - lat - x5 bilat GTT Intervention lat chops - x5 bilat GTT HOLD Parameters Sci fit 5' lv 1 PT Treatment Times Therex Total Time 40 Direct Treatment Time 40 Total Treatment Time 40 Goals: Physical Therapy Ortho Goals: MOBILITY: Patient will be able to ambulate for >30 minutes in community without difficulty in 6 weeks. MOBILITY: Patient will be able to ascend/descend stairs without difficulty in 6 weeks. CARRYING/MOVING/HANDLING: Patient will be able to lift and carry up to 20 lbs in 6 weeks CHANGING MAINTAINING POSITON: Patient will be able to stand for >30 minutes to complete ADLs/IADLs without difficulty in 6 weeks IMPAIRMENT: Patient will demonstrate improved postural awareness in PT sessions to facilitate mechanical alignment and function in 3 weeks. IMPAIRMENT: Improve pain from 7/10 to <3/10 during prolonged standing and walking in 6 weeks IMPAIRMENT: Improve gross MMT of Bilateral Hips to 5/5 in 6 weeks IMPAIRMENT: Improve AROM of Bilateral Lumbar Side Gliding to 25% movement loss or less in 6 weeks. OTHER: Patient will increase FOTO score from 50 to at least 60 to show MDC/MCII and expected functional outcome in 6 weeks. OTHER: Patient will be able to properly demonstrate independence with HEP in 1 week. Patient Education: Quality of movement with patient demonstrated understanding. Post-Treatment Pain Scale: 4 Assessment: Patient had an expected response to treatment. Skilled Intervention demonstrated by modifications of treatment per exercise log including increased load and safety interventions per exercise log. Progress towards goals as expected. Plan for Next Visit: Treatment Visit with focus on strengthening core Bertha Gardner PTA STATE LICENSE, [id number] documented in this encounter* Toro Lucio, PT - 09/30/2020 2:45 PM EST Pt arrived today for her 1:00 appointment but stated her back is hurting too much to do therapy. She did not want to complete today's session and she requested to discontinue PT altogether. PT POC will be D/C'd at this time per pt request. documented in this encounter Additional Source Comments INFORMATION SOURCE (unrecogn ized section and content) DATE CREATED AUTHOR AUTHOR'S ORGANIZ ATION 07/30/2020 [facility] ([place]) DATE CREATED AUTHOR AUTHOR'S ORGANIZ ATION 09/29/2020 [facility] DATE CREATED AUTHOR AUTHOR'S ORGANIZ ATION 10/03/2020 [facility] DATE CREATED AUTHOR AUTHOR'S ORGANIZ ATION 08/26/2021 [facility] Reason for Visit (unrecogniz ed section and content) Reason Comments Physical Therapy Status Reason Specialty Diagnoses / Procedures Referred By Contact Referred To Contact Authorized Rehabilitation Diagnoses Bilateral low back pain with right-sided sciatica, unspecified chronicity Oli Valentino MD [address] [place] [address] [facility] [address] [place] [address] Reason Onset Date Comments Medication Refill 09/14/2020 Status Reason Specialty Diagnoses / Procedures Referred By Contact Referred To Contact Authorized Rehabilitation Diagnoses Bilateral low back pain with right-sided sciatica, unspecified chronicity Oli Valentino MD [address] [id number] [facility] [address] [place] [address] Reason Comments Follow-up Reason Onset Date Comments Medication Refill 10/02/2020 Assessment & Plan Note - Oli Valentino MD - 09/04/2020 12:48 PM ESTAssessment & Plan Note - Oli Valentino MD - 09/04/2020 12:44 PM EST Miscellaneous Notes (unrecog nized section and content) Associated Problem(s): Cervical spondylosis X-ray done in July 2020 showing cervical spondylosis and severe degenerative disease. Associated Problem(s): Degeneration of lumbar intervertebral disc Xray in July 2020 showing degenerative disease with spondylosis mainly in L1- L2 as well as L5-S1. Symptoms of sciatica was also reported which adds to her neuropathic pain. No concern for spinal stenosis at this time. -Continue on gabapentin at the current dose -Continue to assess her level of functioning and activity, as well as severity of symptoms -Refer to physical therapy for core strengthening Associated Problem(s): Joint swelling Multiple small hand joints , most likely related to osteoarthritis from overuse over the years. Evidence of Heberden's nodules. Low concern for rheumatoid arthritis , doesn't run in the family but cannot be entirely excluded given evidence of warmth and swelling in the hand joints today. - Labs today, may consider further imaging in future visits. Associated Problem(s): Dry skin dermatitis Mositurizing your hand several times per day as CeraVe, Vaseline ointment. Wear protective gloves while working around the house or gardening. Steroid ointment 2 weeks at a time. Any flares just contact me or your campaign management specialist documented in this encounter Last ov 09/04/2020. Pt switching to [email or web address] for convenience standards. NO CSA ON FILE BUT OARRS REPORT PRINTED AND SCANNED INTO THE CHART. ----- Message from John Aquino sent at 09/10/2020 8:44 AM EST ----- Regarding: RX Refill Contact: Socrates/pharmacy MEDICATION REFILL REQUEST: PCP: Oli Valentino MD Patient called 09/10/20 and is requesting a medication refill for Unifine Pentips 32 gauge x 5/32 Ndle 09/01/2020 gabapentin (NEURONTIN) 100 MG capsule 08/24/2020 Lantus Solostar U-100 Insulin 100 unit/mL (3 mL) InPn 07/09/2020 lisinopriL (PRINIVIL,ZESTRIL) 10 MG [id number]/16/2020 Sig - Route: Take 10 mg by mouth daily . - Oral metFORMIN (GLUCOPHAGE) 500 MG tablet08/03/2020 Sig - Route: Take 1,000 mg by mouth 2 (two) times a day . - Oral This was confirmed from the current medication list found in the patients chart. Supply Requested: # of days: 90 days Method of receiving: Send to pharmacy Last set of flowsheet rows for OARRS report: OARRS/NARxCHECK Report Received and Assessed: No data found Date controlled substance agreement signed: No data found Date of last drug screen: No data found Functional Assessment: No data found Will this refill be sent to the preferred pharmacy listed below? No, preferred pharmacy needs to be updated. Please update the patient's medical record with the new pharmacy name and address - Preferred pharmacies: [email or web address] [address] [place] [address] PH: FAX: Pt Call Back Number Work Phone Not on file. Patient call back message sent to the primary care clinical pool. John Aquino documented in this encounter RECEIVED REQUEST FOR LANTUS TO GO TO [email or web address]. LAST OV 09/04/2020 documented in this encounter Associated Problem(s): Degeneration of lumbar intervertebral disc Xray in July 2020 showing degenerative disease with spondylosis mainly in L1- L2 as well as L5-S1. Symptoms of sciatica was also reported which adds to her neuropathic pain. No concern for spinal stenosis at this time. 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 No concern for wart. Concerning for dyshidrotic eczema - Moisturize hand well - cover with gloves while working - if persistent will check with steroid cream Associated Problem(s): Anxiety and depression Prefers to stick to behavioral therapy , yet to schedule an appointment at [facility] - Consider anxiolytic for next appointment - GAD7 score 5 but patient reported increased stress recently Associated Problem(s): Type 2 diabetes mellitus without complication (HCC) ASCVD risk score is 3.6% for patient still recommended to be on moderate intensity statin. 09/25/2020 Ramsey Quick [address] [place] [address] DIABETES PATIENT REPORT CARD Dear Ramsey Quick, Please check glucose 3 times/week. Your success at managing your diabetes is important to us. There are nationally recognized guidelines we follow for all our patients. If met, patients live longer, healthier lives. I am writing to update you on how you and I are doing at managing your diabetes. 1. Hemoglobin A1C is an average measure of your sugar control over the last 3 months. The [place] [employer] (ADA) has set a goal of less than 7% for adults (normal 6% or below). Less than 7.5% is preferred for older citizens. Your last A1C: 7.2 No components found for: HBA1C Self monitoring is an important aspect of your diabetic care that you can do on a day-to-day basis. The [place] [employer] suggests the following targets for most non adults with diabetes. More or less stringent glycemic goals may be appropriate for each individual. Preprandial plasma glucose (before a meal) 70 130 mg/dl Postprandial plasma glucose (after a meal) <180 mg/dl 2. Cholesterol Management is critical for diabetics to prevent heart attacks, strokes and hardening of the arteries (peripheral arterial disease PAD ). The [place] [employer] Association's (ADA) goal is to have an LDL less than 100 mg/dL if you have no cardiovascular disease and less than 70 mg/dL if you have cardiovascular disease. Your Last Lipid Panel: Lab Results Component Value Date CHOL 186 09/04/2020 TRIG 68 09/04/2020 HDL 69 09/04/2020 3. Blood Pressure Management is critical to prevent heart attacks, strokes, congestive heart failure, and kidney failure. Using medications to control your blood pressure is essential. The recommendations for blood pressure goals for patients with diabetes is less than 140/90 Your last BP: BP Readings from Last 3 Encounters: 09/25/20 125/82 09/04/20 124/79 4. Annual Diabetic Eye Exams are important to prevent blindness in diabetics. You should have a detailed dilated retinal eye examination by an eye professional at least yearly. 5. Urine Microalbumin is a test that we use to identify diabetic patients who may be at risk of developing kidney problems leading to dialysis. If you have microalbumin in your urine, there are medications that can help prevent the progression of kidney disease. Your last Urine Microalbumin: No results found for: MICROALBUMIN No components found for: LILIYA, GROUNDSKEEPING MAINTENANCE 6. Immunizations are essential to prevent pneumonia and flu in patients with diabetes who are more susceptible for these conditions. You should receive a pneumonia vaccination at least once and a flu shot early each Fall. [place] [employer] (ADA) Goal: Pneumonia shot once before age 65 and once after 65 [place] [employer] (ADA) Goal: Flu shot every year Hepatitis B Vaccine series completion 7. Daily Exercise is an important goal to aim for in your treatment of diabetes. People with pre-diabetes, diabetes, or the general adult public should aim for a minimum of 30 minutes most days. Walking, gardening, doing yard work, swimming, or cleaning house will all work to meet this goal. Anything that increases your heart rate and causes you to break a light sweat. Do these guidelines seem hard to fit in to your busy life? It s not easy to find the time. You won t go from zero to thirty or sixty (minutes), in a day or week. Take one step at a time. Slowly build up to your goal. 8. Healthy eating is the cornerstone to controlling your diabetes and eating well is one of life's greatest pleasures. Fortunately, having diabetes does not prevent you from enjoying a wide variety of foods. People with diabetes have the same nutritional needs as anyone else. Learn to eat well-balanced meals in the correct amounts, stay fit, and take your prescribed medications, and you can thrive with diabetes. For more information or recipe ideas, please visit: http://www.diabetes.org/caph-czc-jgvwjtl/food/ Http://www.choosemyplate.gov/ 9. Mood can often be overlooked as a factor in how well diabetes is controlled. Research shows that depression and diabetes are directly related. Working with your doctor to discuss any symptoms of depression and get help if needed is extremely important. Symptoms of depression include changes in your sleep pattern (sleeping too much or too little), changes in appetite (more or less), decreased energy, decreased interest or enjoyment in hobbies or social settings that were previously enjoyable, poor concentration, increased feelings of guilt, physical slowing and lethargy, feeling sad and down, and thoughts of or suicide. If you have a history of depression or are concerned that you are depressed, make sure to communicate at each visit how your mood is so that we can work together to improve your health and wellbeing. We look forward to working with you to treat your diabetes. Please let me know if you have any questions. Thank you, [facility] documented in this encounter ----- Message from Benito Morales MA sent at 10/02/2020 4:32 PM EST ----- Regarding: FW: Rx Refill & Consult Request Contact: Wendi/karen ----- Message ----- From: John Aquino Sent: 10/02/2020 4:19 PM EST To: [facility] Pcp Tonio Barreto Clinical Staff Subject: Rx Refill & Consult Request NOTE: PATIENT REQUESTED CONSULTATION ON THE CHOLESTEROL MED BELOW atorvastatin (LIPITOR) 10 MG [id number] Sig - Route: Take 1 (one) tablet (10 mg total) by mouth daily . - Oral Sent to pharmacy as: atorvastatin 10 mg tablet (LIPITOR) MEDICATION REFILL REQUEST: PCP: Oli Valentino MD Patient called 10/02/20 and is requesting a medication refill for blood sugar diagnostic each Sig - Route: by Miscellaneous route daily . - Miscellaneous Sent to pharmacy as: blood sugar diagnostic strips This was confirmed from the current medication list found in the patients chart. Supply Requested: 100 Method of receiving: Send to pharmacy Last set of flowsheet rows for OARRS report: OARRS/NARxCHECK Report Received and Assessed: No data found Date controlled substance agreement signed: No data found Date of last drug screen: No data found Functional Assessment: No data found Will this refill be sent to the preferred pharmacy listed below? No, preferred pharmacy needs to be updated. Please update the patient's medical record with the new pharmacy name and address - Preferred pharmacies: NOTE: PLEASE REMOVE [facility] by [id number] [place] [phone] Pt Call Back Number Work Phone Not on file. Patient call back message sent to the primary care clinical pool. John Aquino documented in this encounter FOR RECORDS PERTAINING TO PATIENTS WHO ARE OR HAVE BEEN ENROLLED IN A CHEMICAL DEPENDENCY/SUBSTANCEABUSE PROGRAM, SOME INFORMATION MAY BE OMITTED. This clinical summary was aggregated from multiple sources. Caution should be exercised in using it in the provision of clinical care. This summary normalizes information from multiple sources, and as a consequence, information in this document may materially change the coding, format and clinical context of patient data. In addition, data may be omitted in some cases. CLINICAL DECISIONS SHOULD BE BASED ON THE PRIMARY CLINICAL RECORDS. [facility]. provides no warranty or guarantee of the accuracy or completeness of information in this document.
[2023-09-01 17:16] LABS: Absolute Lymphocyte Count 1.05 X10^3/uL (0.83-4.51); Absolute Neutrophil Count 3.1 X10^3/uL (2.0-7.7); Basophil# 0.05 X10^3/uL; Basophil% 1.1 % (0-1); Eosinophils% 2.1 % (0-5); Hematocrit 41.3 % (37-47); Hemoglobin 13.9 g/dL (12.0-15.0); Lymphocyte # 1.05 X10^3/ul (0.83-4.51); Lymphocyte % 22.3 % (19-41); Mean Corp Hgb Conc 33.7 g/dL (32-36); Mean Corpuscular Hgb 32.8 pg (27.0-32.0); Mean Corpuscular Volume 97.4 fL (81-99); Mean Platelet Vol. 10.1 fl (6.2-12.0); Monocyte# 0.41 X10^3/uL; Monocyte% 8.7 % (0-10); NRBC Flagged by Analyzer 0 % (0-5); Neutrophil # 3.09 X10^3/uL (2.7-7.7); Neutrophil % 65.6 % (47-70); Platelet Count 266 K/mm3 (150-450); RBC Distribution Width CV 11.8 % (11.6-14.6); RBC Distribution Width SD 42.1 fl (35.1-43.9); Red Blood Count 4.24 M/mm3 (4.2-5.4); White Blood Count 4.7 K/mm3 (4.4-11.0)
[2023-09-01 17:31] LABS: Anion Gap 5 (5-15); BUN 15 mg/dL (7-18); BUN/Creat Ratio 25.8 RATIO (10-20); Calcium,Total 9.6 mg/dL (8.5-10.1); Chloride 105 mmol/L (98-107); Creatinine, Serum 0.58 mg/dL (0.55-1.02); EST Glomerular Filtration Rate 113 mL/min (>60); Est Glom Filt Rate - Afr Amer 137 mL/min (>60); Glucose 91 mg/dL (74-106); Potassium 4.1 mmol/L (3.5-5.1); Sodium Level 142 mmol/L (136-145)
[2023-09-01 17:44] LABS: Hemoglobin A1c 6.7 % (3.8-5.6)
== END | disposition home or self-care (01) ==
LOC: BIMLAB 14:26
PROVIDERS: Nurse Practitioner Family; PCP Internal Medicine; Visit Provider Internal Medicine
DX: I10 Essential (primary) hypertension (principal); E11.42 Type 2 diabetes mellitus with diabetic polyneuropathy; Z79.4 Long term (current) use of insulin
CPT/HCPCS: 36415; 80048; 83036; 85025

== ENCOUNTER → 2023-09-05 | Outpatient (CLI) | payer MEDICAID, SELFPAY ==
[2023-09-05 17:49] LABS: Microalbumin,Random Urine 6.1 mg/L (NO RANGE EST.); Microalbumin:Creatinine Ratio 23.9 mg/g CRE (<30 mg/g CRE)
== END | disposition home or self-care (01) ==
LOC: LAB 17:06
PROVIDERS: PCP Internal Medicine; Referring Provider Internal Medicine Endocrinology, Diabetes & Metabolism; Visit Provider Internal Medicine Endocrinology, Diabetes & Metabolism
DX: E11.9 Type 2 diabetes mellitus without complications (principal); I10 Essential (primary) hypertension; E78.2 Mixed hyperlipidemia
CPT/HCPCS: 82043; 82570

== ENCOUNTER → 2024-03-07 | Outpatient (CLI) | payer MEDICAID, SELFPAY ==
[2024-03-07 17:02] LABS: Anion Gap 8 (5-15); BUN 15 mg/dL (7-18); BUN/Creat Ratio 25.2 RATIO (10-20); Calcium,Total 8.8 mg/dL (8.5-10.1); Chloride 102 mmol/L (98-107); Cholesterol 175 mg/dL (200); EST Glomerular Filtration Rate 110 mL/min (>60); Est Glom Filt Rate - Afr Amer 133 mL/min (>60); Glucose 191 mg/dL (74-106); High Density Lipoprotein 61 mg/dL; Potassium 4.2 mmol/L (3.5-5.1); Sodium Level 138 mmol/L (136-145); Triglycerides 170 mg/dL; Very Low Density Lipoprotein 34 mg/dL (5-40)
[2024-03-07 17:04] LABS: Vitamin D,25 Hydroxy 60.4 ng/mL
[2024-03-07 17:06] LABS: Hemoglobin A1c 6.1 % (3.8-5.6)
[2024-03-07 17:06] LABS: Hemoglobin A1c 6.1 % (3.8-5.6)
[2024-03-07 17:40] LABS: Vitamin B12 309 pg/mL (211-911)
== END | disposition home or self-care (01) ==
LOC: LAB 16:25
PROVIDERS: PCP Internal Medicine; Referring Provider Family Medicine; Visit Provider Family Medicine
DX: E11.42 Type 2 diabetes mellitus with diabetic polyneuropathy (principal); Z79.4 Long term (current) use of insulin; I10 Essential (primary) hypertension; E55.9 Vitamin D deficiency, unspecified; G62.9 Polyneuropathy, unspecified
CPT/HCPCS: 80048; 80061; 82306; 82607; 83036

== ENCOUNTER → 2024-03-18 | Outpatient (CLI) | payer MEDICAID, SELFPAY ==
--- NOTE | 2024-03-18 10:59 | BI_ITS ---
MAMMOGRAPHY - BILATERAL SCREENING REASON FOR EXAM: Female, 59 years old. Routine annual screening examination. PERTINENT HISTORY: Aunt with breast cancer. TECHNIQUE: Digital bilateral breast saira (3D mammographic acquisition) in the CC and MLO projections. 2-D mediolateral oblique (MLO) and craniocaudad (CC) views of both breasts were obtained. CAD: Full Field Digital Mammography with Computer Added Detection was performed. COMPARISON: Comparison is made with prior study March 13, 2023 and February 17, 2022. FINDINGS: Breast Composition: There are scattered areas of fibroglandular density. There are no dominant masses or suspicious calcifications. No other significant abnormalities are identified. There has been no significant change since the prior study. BI/SCRN MAMM (CAD)W/SAIRA BILAT IMPRESSION: Stable bilateral screening mammogram. Yearly follow-up mammogram recommended. (A) ASSESSMENT CATEGORY: BIRADS Category 1: Negative. A letter regarding these results will be sent to the patient by the facility within 30 days. Approximately 10% of breast cancers are not detected by mammography. A normal mammogram should not delay biopsy of a clinically suspicious abnormality. [id number] Electronically Signed: Rogers Harkins MD at 12:46 EDT ,
== END | disposition home or self-care (01) ==
LOC: OPBI 10:58
PROVIDERS: PCP Internal Medicine; Referring Provider Family Medicine; Visit Provider Family Medicine
DX: Z12.31 Encounter for screening mammogram for malignant neoplasm of breast (principal); Z80.3 Family history of malignant neoplasm of breast
CPT/HCPCS: 77063; 77067

== ENCOUNTER → 2024-04-16 | Outpatient (CLI) | payer MEDICAID, SELFPAY ==
[2024-04-16 19:09] LABS: Hematocrit 40.5 % (37-47); Hemoglobin 13.7 g/dL (12.0-15.0); Mean Corp Hgb Conc 33.8 g/dL (32-36); Mean Corpuscular Hgb 32.9 pg (27.0-32.0); Mean Corpuscular Volume 97.4 fL (81-99); Mean Platelet Vol. 9.6 fl (6.2-12.0); Platelet Count 261 K/mm3 (150-450); RBC Distribution Width CV 11.5 % (11.6-14.6); Red Blood Count 4.16 M/mm3 (4.2-5.4); White Blood Count 3.9 K/mm3 (4.4-11.0)
[2024-04-16 19:42] LABS: AST(SGOT) 24 U/L (15-37); Alanine Aminotransfer ALT/SGPT 34 U/L (13-56); Albumin, Serum 3.7 g/dL (3.2-5.0); Alkaline Phosphatase 80 U/L (45-117); Anion Gap 6 (5-15); BUN 11 mg/dL (7-18); BUN/Creat Ratio 16.9 RATIO (10-20); Chloride 103 mmol/L (98-107); Creatinine, Serum 0.65 mg/dL (0.55-1.02); EST Glomerular Filtration Rate 99 mL/min (>60); Est Glom Filt Rate - Afr Amer 120 mL/min (>60); Ferritin 82 ng/mL (8-252); Globulin 3.7 g/dL (2.2-4.2); Glucose 93 mg/dL (74-106); Iron 91 ug/dL (50-170); Iron Binding Capacity,Total 236 ug/dL (250-450); PERCENT IRON SATURATION 38.6 % (15.0-55.0); Potassium 3.9 mmol/L (3.5-5.1); Protein, Total 7.4 g/dL (6.4-8.2); Sodium Level 140 mmol/L (136-145)
[2024-04-16 19:56] LABS: Hemoglobin A1c 6.2 % (3.8-5.6)
[2024-04-16 21:34] LABS: Vitamin B12 344 pg/mL (211-911); Vitamin D,25 Hydroxy 51.9 ng/mL
== END | disposition home or self-care (01) ==
LOC: LAB 18:44 → LABSPEC 04-17 09:34
PROVIDERS: PCP Internal Medicine; Referring Provider Pharmacist Pharmacist Clinician (PhC)/ Clinical Pharmacy Specialist; Visit Provider Pharmacist Pharmacist Clinician (PhC)/ Clinical Pharmacy Specialist
DX: R53.83 Other fatigue (principal); Z79.899 Other long term (current) drug therapy
CPT/HCPCS: 36415; 80053; 82306; 82607; 82728; 82746; 83036; 83540; 83550; 84443; 85027

== ENCOUNTER → 2024-07-06 | Outpatient (CLI) | payer MEDICAID, SELFPAY ==
--- NOTE | 2024-07-06 10:32 | US_ITS ---
STUDY: THYROID ULTRASOUND REASON FOR EXAM: Female, 59 years old. enlarged thyroid TECHNIQUE: Ultrasound evaluation of the thyroid was performed with real-time and static smart-scale imaging. COMPARISON: None. FINDINGS: RIGHT LOBE: The right lobe of the thyroid gland measures 5.5 x 1.6 cm. There is a heterogeneous echotexture. Innumerable primarily hypoechoic smooth nodules are scattered throughout the parenchyma of both the right and left thyroid lobes, right greater than left with the largest on the right measuring 1.4 x 1.3 cm. LEFT LOBE: The left lobe of the thyroid gland measures 5.2 x 2.2 x 1.5 cm. There is a heterogeneous echotexture. Innumerable primarily hypoechoic smooth nodules are scattered throughout the parenchyma of both the right and left thyroid lobes, right greater than left with the largest on the right measuring 1.4 x 1.3 cm. The largest nodule on the left measures 8 mm. A primarily cystic nodule with some internal avascular debris is present in the midpole measuring 8 mm. ISTHMUS: The isthmus measures 4 mm. US/Thyroid IMPRESSION: 1. Multinodular goiter of the thyroid gland 2. TR2: 2 points = not suspicious 3. If physical symptoms, abnormal thyroid values or other findings warrant further radiologic assessment repeat the study and consider nuclear medicine iodine 123 or PET/CT if there is concern for malignancy. 4. Targeted image guided biopsy of nodules of interest can also be performed with definitive pathologic assessment and diagnosis. ACR Thyroid Imaging Reporting and Data System (ACR TI-RADS) Reference: COMPOSITION (choose 1): Cystic or almost completely cystic - 0 points Spongiform- 0 points Mixed cystic and solid - 1 point Solid almost completely solid - 2 points ECHOGENICITY (choose 1): Anechoic space - 0 points Hyperechoic or isoechoic-1 point Hypoechoic-2 points Very hypoechoic-3 points SHAPE (choose 1): : Wider than tall-0 points Taller than wide-3 points MARGINS ( smooth, lobular, ill-defined) ECHOGENIC FOCI (macro or microcalcifications) Scoring and classification TR1: 0 points = benign TR2: 2 points = not suspicious TR3: 3 points = mildly suspicious TR4: 4-6 points = moderately suspicious TR5: ?7 points = highly suspicious Recommendations TR1: no FNA required TR2: no FNA required TR3: ?1.5 cm follow up, ?2.5 cm FNA = follow up: 1, 3 and 5 years TR4: ?1.0 cm follow up, ?1.5 cm FNA = follow up: 1, 2, 3 and 5 years TR5: ?0.5 cm follow up, ?1.0 cm FNA = annual follow up for up to 5 years FNA biopsy is recommended for suspicious lesions (TR3-TR5) with the above size criteria. If there are multiple nodules, the two with the highest ACR TI-RADS scores should be sampled (rather than the two largest), with largest size being used a tie-breaker if there are multiple nodules of the same classification. Electronically Signed: Shashank Will MD at 8:37 EST Reading Location ID and State: [address] [place] [address] , Service support ,
== END | disposition home or self-care (01) ==
LOC: US 10:30
PROVIDERS: PCP Internal Medicine; Referring Provider Obstetrics & Gynecology; Visit Provider Obstetrics & Gynecology
DX: E04.9 Nontoxic goiter, unspecified (principal)
CPT/HCPCS: 76536

== ENCOUNTER → 2024-08-02 | Outpatient (CLI) | payer MEDICAID, SELFPAY ==
[2024-08-05 15:07] LABS: Thyroglobulin Antibody 2.5 IU/mL (0.0-0.9); Thyroid Peroxidase AB 19 IU/mL (0-34)
== END | disposition home or self-care (01) ==
LOC: LAB 09:59
PROVIDERS: PCP Internal Medicine; Referring Provider Surgery; Visit Provider Surgery
DX: E04.1 Nontoxic single thyroid nodule (principal)
CPT/HCPCS: 36415; 86376; 86800

== ENCOUNTER → 2024-08-14 | Outpatient (CLI) | payer MEDICAID, SELFPAY ==
--- NOTE | 2024-08-14 14:30 | FLU_PTH ---
PATIENT: RAMSEY RODRIGUEZ LOC: [facility] U#:[id number] AGE/SX: 59/F ROOM: RE08/14/[address]: Dr. Louis Baltazar MD : 1965 BED: DIS: 08/14/2024 SPEC #: [id number] RECD: 08/14/24 15:33 STATUS: JACQUI DEYANIRA #: [id number] ALONZO: 08/14/24 14:[address]: Louis Baltazar DEPT: CYTOLOGY RECD BY: Kaleigh Ponce ENTERED: 08/15/24 10:22 SP TYPE: Fluid OTHR DR: Dr. Naomie Clarke MD Tissues: A - Thyroid isthmus B - Thyroid isthmus Procedures: Special Stain Group II Surgery Specimen Level IV Cytospin Fluid Cytology Other HEADER OPERATION: Fine needle aspiration of thyroid nodule PRE-OP DIAGNOSIS: Thyroid nodule TISSUE SUBMITTED: A- Right isthmic fluid, B- Right isthmic slides DIAGNOSIS CYTOLOGY A. Right isthmic fluid, fine needle aspiration (cytospins and cellblock): Consistent with benign follicular/colloid nodule with cystic changes, [place] Category II. Adequate for evaluation. B. Right isthmic nodule, fine needle aspiration (smears): Consistent with benign follicular/colloid nodule with cystic changes, [place] Category II. Adequate for evaluation. See comment. [email or web address] 08/16/2024 COMMENT Correlation with clinical, radiologic findings and appropriate follow up are necessary. The [place] System for thyroid diagnostic categorization was used in the evaluation of this case. CYTOLOGY STUDY Slides are reviewed. CYTOLOGY GROSS A Received is 30 ml of red-cloudy fluid labeled with the patient's name and and designated per the requisition as Right ishtmic. Submitted for cytology preparation including cell block. B. Received are 4 smears labeled with the patient's name and designated per the requisition as Right isthmic. Submitted for staining. Mr 08/15/2024 TC:5 CPT: [id number]
== END | disposition home or self-care (01) ==
LOC: LABSPEC 16:06
PROVIDERS: PCP Internal Medicine; Referring Provider Surgery; Visit Provider Surgery
DX: E04.1 Nontoxic single thyroid nodule (principal)
CPT/HCPCS: 88108; 88161; 88305; 88313

== ENCOUNTER → 2024-08-19 | Outpatient (CLI) | payer MEDICAID, SELFPAY ==
--- NOTE | 2024-08-19 16:45 | RAD_ITS ---
STUDY: X-RAY - LUMBAR SPINE REASON FOR EXAM: Female, 59 years old. Chronic back pain. TECHNIQUE: 4 view(s) of the lumbar spine were obtained. COMPARISON: None FINDINGS: Normal lumbar lordosis. There is no substantial scoliosis. There is a normal alignment of the vertebrae. Diffuse moderate lower thoracic and lumbosacral facet sclerosis. Diffuse intervertebral disc space narrowing with osteophytes most marked at L3-4 and L5-S1. Vascular calcification. RAD/L/S Spine Min 4 Views IMPRESSION: Diffuse mild lower thoracic and lumbosacral spondylosis. Electronically Signed: Gavin Guallpa MD at 10:10 EST ,
--- NOTE | 2024-08-19 16:45 | RAD_ITS ---
STUDY: X-RAY - PELVIS AND LEFT HIP REASON FOR EXAM: Female, 59 years old. Left hip pain. TECHNIQUE: 3 views of the pelvis and hip. COMPARISON: None. FINDINGS: There is a non-specific bowel gas pattern. Normal visualized soft tissue structures. Normal bilateral iliac wings, sacroiliac joints and visualized sacrum. Normal bilateral superior and inferior pubic rami. Normal pubic symphysis. Normal bilateral ischial tuberosities. Mild arthrosis of both hips. RAD/HIP, UNI W/ Pelvis 2-3 Views IMPRESSION: Mild arthrosis of both hips. No other abnormality. Electronically Signed: Gavin Guallpa MD at 10:16 EST ,
[2024-08-19 17:17] LABS: Hemoglobin A1c 6.4 % (3.8-5.6)
[2024-08-19 18:45] LABS: Anion Gap 8 (5-15); BUN 12 mg/dL (7-18); BUN/Creat Ratio 22.3 RATIO (10-20); Calcium,Total 9.7 mg/dL (8.5-10.1); Chloride 100 mmol/L (98-107); Creatinine, Serum 0.54 mg/dL (0.55-1.02); EST Glomerular Filtration Rate 123 mL/min (>60); Est Glom Filt Rate - Afr Amer 149 mL/min (>60); Glucose 109 mg/dL (74-106); Sodium Level 137 mmol/L (136-145)
== END | disposition home or self-care (01) ==
PROVIDERS: PCP Internal Medicine; Referring Provider Internal Medicine; Visit Provider Internal Medicine
DX: M54.50 Low back pain, unspecified (principal); E11.42 Type 2 diabetes mellitus with diabetic polyneuropathy; Z79.4 Long term (current) use of insulin; G89.29 Other chronic pain; M25.552 Pain in left hip
CPT/HCPCS: 36415; 72110; 73502; 80048; 83036

== ENCOUNTER 2024-10-28 16:00 | Outpatient (RCR) | payer MEDICAID, SELFPAY ==
--- NOTE | 2024-08-26 16:12 | HP.PTEVAL_ITS ---
Patient's Visit Information Visit Information Visit Information: RAMSEY RODRIGUEZ is a 59 year old F referred to Physical Therapy by Dr. Naomie Clarke MD with a diagnosis of L HIP PAIN AND CHRONIC BACK PAIN. Date of Evaluation: 08/26/24 Physical Therapist: Sapna Redman PT, Cert MDT Visit Plan Frequency: 2x /Week Duration: 4-6 Weeks Plan: L HIP US X 6 TO 8 TREATMENTS AND MH NEEDED. GENTLE L HIP ROM, STRETCHING AND STRENGTHENING. CORE STRENGTHENING WITH NEUTRAL SPINE TOLERATED. HEP INSTRUCTION. 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 Disability: NOT ON DISABILITY Present symptoms: L HIP PAIN. CENTRAL LOW BACK PAIN. Present since: PATIENT REPORTS CHRONIC LOW BACK AND L HIP PAIN BUT L HIP PAIN FLARED UP A COUPLE MONTHS AGO. Pain Scale: LOW BACK AND L HIP: WORST 7/10, LEAST 4/10. Currently: 6/10 Is it getting better, worse or staying the same: STAYING THE SAME Commenced as a result of: NO APPARENT REASON OTHER THAN ARTHRITIS Worse: GOING UP AND DOWN STEPS WITH LAUNDRY, BAGS, GROCERIES AND BOOKS. Better: NOTHING Disturbed sleep: CAN'T SLEEP ON L SIDE DUE TO L HIP PAIN. Previous history/Previous treatment: PATIENT REPORTS ABOUT 29 YEAR HISTORY OF BACK PAIN SINCE SON WAS 3 YEARS OLD AND STATES SHE KNOWS IT ISN'T GOING TO GET BETTER AND DOESN'T WANT TO WASTE ANYONE'S TIME. Treatment this episode: Coughing/sneezing/straining: Gait: Bowel or Bladder Dysfunction: Accidents: FELL AT HOME IN KITCHEN APPROX APR 2024 - STATES SHE IS DIABETIC WAS GETTING HUNGRY AND GOT DIZZY - STATES SHE HAS HAD SEVERAL OTHER FALLS BUT DOESN'T GIVE SPECIFICS. MY BACK HAS ALWAYS HURT ME. Unexplained weight loss: NO Imaging: OTHER: MONDAY TRIED TO WALK ABOUT 20 TO 30 MIN AT THE [facility] - STATES IT WORE HER OUT BUT SHE CAN'T REMEMBER THE EFFECT ON HER HIP. PMH/Recent major surgery: Left hip pain Thyroid nodule Laceration Laceration of left middle finger Laceration of left index finger Vitamin D deficiency Anxiety and depression Flu vaccine need Preventative health care Overweight (BMI 25.0-29.9) Breast cancer screening Wart of hand Obesity Arthritis Diabetes mellitus Sciatica Neuropathy Hypertension Arthritis Uterine cancer ~ 10 YEARS AGO History of D&C History of hysterectomy for cancer Objective Objective: Sitting/Standing Posture: INCREASED KYPHOSIS AND INCREASED TRUNK FLEXION IN STANDING. SLOUCHED IN SITTING. PATIENT ABLE TO PARTIALLY CORRECT POSTURE IN SITTING WITH CUEING BUT NOT MAINTAIN. POSTURE CORRECTION HAS NE ON PATIENTS C/O BACK AND HIP PAIN. Other Observations: THIS PATIENT AMBULATES INDEP'LY INTO PT LIMPING ON DAKOTA LE'S AND WALKS WITH EXCESSIVE TRUNK FLEXION. NO LOB AND NOT USING ANY ASSISTIVE DEVICES. 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 Sensory deficit: DAKOTA LE LIGHT TOUCH SENSATION APPEARS GROSSLY INTACT AND SYMMETRICAL ROM deficit: TIGHT DAKOTA LE HS'S, HIP FLEXORS, AND CALVES. DAKOTA HIP ROTATOR TIGHTNESS AND ESPECIALLY L HIP IR TIGHTNESS WITH PAIN. L HIP IR REPRODUCES THE PAIN THAT SHE CAME HERE FOR. Motor deficit: R HIP 4/5, KNEE 4/5, ANKLE 4/5. L HIP 4-/5, KNEE 4/5, ANKLE 4/5. MMT'ING LIMITED DUE TO PATIENT BEING TENTATIVE. SHE IS INDEP WITH TRANSFERS SIT TO STAND BUT DID NOT WANT TO ATTEMPT SIT TO STAND WITHOUT UE ASSIT TODAY. Lumbar mvmt loss: flex - MOD ext - CRUZ R SG - CRUZ L SG - CRUZ PATIENT DENIED INCREASED PAIN WITH LUMBAR ROM TESTING ALL PLANES BUT MOVEMENTS ARE SLOW AND GUARDED. Core strength: POOR Palpation: PATIENT DENIES PAIN WITH LIGHT PALPATION OF R HIP, LUMBAR AND SACRAL REGIONS BUT REPORTS PAIN WITH PALPATION OF LEFT GREATER TROCH REGION. STEPS: PATIENT ABLE TO GO UP AND DOWN STEPS WITH STEP TO PATTERN LEADING UP WITH L AND DOWN WITH R AND USING ONE HR HEAVILY. SHE REPORTS THIS IS BECAUSE OF HER HISTORY WITH R FOOT AND HAS NOT CHANGED WITH L HIP FLARE UP BUT HURTS R HIP MORE NOW. Balance/Special Test Scores Oswestry Low Back Score: 24 Goals Goal 1:: DECREASE C/O L HIP PAIN BY AT LEAST 50% TO EASE ADL'S. Goal Time Frame: 4-6 Weeks Goal 2:: IMPROVE SITTING, STANDING, WALKING AND STAIR CLIMBING FUNCTION TO EASE ADL'S. Goal Time Frame: 4-6 Weeks Goal 3:: INDEP HEP Goal Time Frame: 4-6 Weeks Rehabilitation Potential Physical Therapy Diagnosis: POSTURAL, TRUNK AND LE STIFFNESS AND WEAKNESS. L LATERAL HIP TENDERNESS. Anticipated Interventions Patient/Client Instruction: Educate patient on: Condition, Plan of Care and Risk Factors For the Purpose of:: To improve self management Therapeutic Exercise to Include: Strength training, Body mechanics, Postural training, Flexibilty training, Gait and locomotor training, Neuromotor development and Dynamic Lumbar Stabilization For the Purpose of:: To decrease pain, To increase ROM, To improve muscle performance and motor function, To improve ability to perform ADL's, To increase tolerance to activity/condition/position, To improve ability of physical actions for home/community/work/leisure, To improve gait and locomotor functions and To increase flexibility/ROM Thermo therapy (hot pack): Yes Ultrasound (thermal/non thermal): Yes For the Purpose of:: To decrease pain, To decrease swelling/inflammation and To improve nutrient delivery to tissue Text: Thank you for the opportunity to evaluate your patient. For Medicare and Medicare HMO plans, please review the plan of care and approve it. It will need to be FAXED BACK to us at [phone] for Medicare purposes. For Medicare only, by signing this I certify the plan of care. Please let me know if there are questions or concerns regarding this plan of care. Physician Signature: Date:
--- NOTE | 2024-10-07 14:44 | HP.PTREVAL_ITS ---
Re-Evaluation Intro: Dr. Naomie Noonan MD, It has been my pleasure to treat RMASEY RODRIGUEZ over the last 7 visits for L HIP PAIN AND CHRONIC BACK PAIN. Please see the progress note below for an update on the physical therapy plan of care! Subjective Subjective: PATIENT REPORTS RECEIVING AN INJECTION IN HER L HIP FROM DR. JOVEL 09/25/24. SHE REPORTS INCREASED PAIN 09/30/24 WITH EXAM AT . SHE REPORTS HER PAIN IS STILL BETTER THAN IT WAS BEFORE THE SHOT. SHE REPORTS SHE WANTS TO RESUME THERPAY AND PAIN MGMT AGREES. CURRENTLY SHE REPORTS SHE HAS TOO MUCH L HIP PAIN TO CROSS HER LEGS BUT NOT SO BAD THAT SHE CAN'T PULL IT UP IN THE SHOWER. L HIP PAIN IS RANGING 3-7/10. LBP RANGING 0-6/10. FOLLOW UP WITH DR. NOONAN PENDING 11/18/24. Objective Objective/Function: PATIENT WAS SEEN TODAY FOR RE-ASSESSMENT OF PROGRESS TOWARD THE SET PT GOALS AND THE NEED FOR FURTHER PHYSICAL THERAPY VS READINESS FOR DISCHARGE. BACK OSWESTRY SCORE HAS IMPROVED FROM 24 TO 15. SHE APPARENTLY HAD BACK X-RAYS AT [facility] THAT DID NOT SHOW ANY INSTABILITY AND DECLINED MRI AT THIS TIME. IT IS MY UNDERSTANDING THAT ORTHO'S RECOMMENDATION IS PAIN MGMT FOLLOW UP AND PAIN MGMT RECOMMENDED PT FOLLOW UP. UPON EXAM TODAY: THIS PATIENT AMBULATES INDEP'LY INTO PT LIMPING ON HER R LE WITHOUT LOB. ROM deficit: TIGHT DAKOTA LE HS'S, HIP FLEXORS, AND CALVES. DAKOTA HIP ROTATOR TIGHTNESS AND ESPECIALLY L HIP IR TIGHTNESS WITH PAIN. L HIP IR AND ER REPRODUCES THE PAIN THAT SHE CAME HERE FOR. Motor deficit: R HIP 4/5, KNEE 5/5, ANKLE 4/5. L HIP 4-/5, KNEE 5/5, ANKLE 5/5. SHE IS INDEP WITH TRANSFERS SIT TO STAND WITH HANDS ON KNEES. SLS - L X 5 SEC, R X 3 SEC WITHOUT UE ASSIST. PATIENT IS NOT ABLE TO TOE WALK AND HEEL WALK VERY WELL AT LEAST IN PART DUE TO L HIP PAIN AND R ANKLE STIFFNESS. Lumbar mvmt loss: flex - MIN. ext - CRUZ R SG - CRUZ L SG - CRUZ PATIENT DENIED INCREASED BACK AND L HIP PAIN WITH LUMBAR ROM TESTING ALL PLANES BUT MOVEMENTS ARE SLOW AND GUARDED AND SHE REPORTS HER HIP WAS ALREADY HURTING BEFORE DOING THE MVMTS. Core strength: FAIR PALPATION: L GREATER TROCH REGION. STEPS: PATIENT ABLE TO GO UP AND DOWN STEPS WITH STEP TO PATTERN LEADING UP WITH L AND DOWN WITH R AND USING ONE HR. SHE REPORTS THIS IS BECAUSE OF HER HISTORY WITH R FOOT AND HAS NOT CHANGED WITH L HIP FLARE UP. ABLE TO DEMO UP AND DOWN RECIPROCALLY WITH ONE HR X A FEW STEPS TODAY BUT OBVIOUS DEVIATIONS DUE TO R LE DEFICITS HOWEVER THE PATTERN SHE HAS TO USE TO ACCOMODATE THE R LE IRRITATES THE L HIP PAIN. PATIENT AGREEABLE WITH BELOW POC. Plan Plan Plan: CONTINUE PT 2X'S A WK X 2 WKS THEN PT RE-CHECK. *HEP INSTRUCTION* HOLD SKTC, DKTC AND LTR. NO BENDING OR TWISTING. GENTLE DAKOTA HIP ROM, STRETCHING AND STRENGTHENING. CORE STRENGTHENING WITH NEUTRAL SPINE TOLERATED. Balance/Gait/Functional tests Balance/Special Test Scores Oswestry Low Back Score: 15 Goals Goals Goal 1:: DECREASE C/O L HIP PAIN BY AT LEAST 50% TO EASE ADL'S. Goal Time Frame: 4-6 Weeks Goal Progress: Progressing Goal 2:: IMPROVE SITTING, STANDING, WALKING AND STAIR CLIMBING FUNCTION TO EASE ADL'S. Goal Time Frame: 4-6 Weeks Goal Progress: Progressing Goal 3:: INDEP HEP Goal Time Frame: 4-6 Weeks Anticipated Interventions Anticipated Interventions Patient/Client Instruction: Educate patient on: Condition, Plan of Care and Risk Factors For the Purpose of:: To improve self management Therapeutic Exercise to Include: Strength training, Body mechanics, Postural training, Flexibilty training, Gait and locomotor training, Neuromotor development and Dynamic Lumbar Stabilization For the Purpose of:: To decrease pain, To increase ROM, To improve muscle performance and motor function, To improve ability to perform ADL's, To increase tolerance to activity/condition/position, To improve ability of physical actions for home/community/work/leisure, To improve gait and locomotor functions and To increase flexibility/ROM Thermo therapy (hot pack): Yes Ultrasound (thermal/non thermal): Yes For the Purpose of:: To decrease pain, To decrease swelling/inflammation and To improve nutrient delivery to tissue Re-Evaluation Ending Re-evaluation ending: Please do not hesitate to contact me at [phone] by phone or if you have questions or concerns regarding this new plan of care! Sincerely, Sapna Redman, PT, Cert MDT
--- NOTE | 2024-10-28 17:01 | HP.PTDCSUM_ITS ---
Discharge Summary D/C summary: It has been my pleasure to treat RAMSEY RODRIGUEZ referred by Dr. Naomie Clarke MD, with the diagnosis of L HIP PAIN AND CHRONIC BACK PAIN for a total of 12 visit(s). Discharge Date: 10/28/24 Please see the following information for a summary of their discharge status. Subjective Subjective: PATIENT REPORTS SHE HASN'T BEEN REAL GOOD ABOUT DOING HER HOME EX'S AND SHE WAS BETTER WHEN SHE WAS DOING THEM. SHE ALSO REPORTS SHE WAS BETTER W HEN SHE WAS DOING THE GYM EX'S. SHE STATES SHE HAS NO PROBLEM EXERCISING SHE JUST HAS TO DISCIPLINE HERSELF TO DO IT. Pain L hip: Pain Intensity (Out of 10): 4 LB: Pain Intensity (Out of 10): 0 Overall Improvement % Improvement: 40 Objective Objective/Function: PATIENT WAS SEEN TODAY FOR RE-ASSESSMENT OF PROGRESS TOWARD THE SET PT GOALS AND THE NEED FOR FURTHER PHYSICAL THERAPY VS READINESS FOR DISCHARGE. BACK OSWESTRY SCORE HAS IMPROVED FROM 24 TO 12. ALL HEP SHEETS REVIEWED AND GYM EX LOG MADE, ISSUED AND REVIEWED WITH PATIENT. EDUCATED PATIENT ON IMPORTANCE OF CONTINUING HEP IN COMFORTABLE ROM AND INTENSITY AND TO DO GYM EX'S ABLE/DESIRED. GYM EX'S WERE GIVEN AT PATIENTS REQUEST. OVER-ALL PATIENT HAS RESPONDED WELL TO PT AND IS INDEP WITH EX PROGRAMS BUT IS plateauing AT THIS POINT. SHE DOES CONTINUE TO HAVE L HIP PAIN EASILY PROVOKED WITH IR/ER TESTING AND L HIP WEAKNESS COMPARED TO R. UPON EXAM TODAY: THIS PATIENT AMBULATES INDEP'LY INTO PT WITHOUT ANY AD'S WITH GOOD CADANCE LIMPING ON HER R LE WITHOUT LOB. ROM deficit: TIGHT DAKOTA LE HS'S, HIP FLEXORS, AND CALVES. DAKOTA HIP ROTATOR TIGHTNESS AND ESPECIALLY L HIP IR TIGHTNESS WITH PAIN. L HIP IR AND ER REPRO DUCES THE PAIN THAT SHE CAME HERE FOR. Motor deficit: R HIP 4/5, KNEE 5/5, ANKLE 4/5. L HIP 4-/5, KNEE 5/5, ANKLE 5/5. SHE IS INDEP WITH TRANSFERS SIT TO STAND WITH HANDS ON KNEES. SLS - L X 5 SEC, R X 3 SEC WITHOUT UE ASSIST. PATIENT IS NOT ABLE TO TOE WALK AND HEEL WALK VERY WELL AT LEAST IN PART DUE TO L HIP PAIN AND R ANKLE STIFFNESS. Lumbar mvmt loss: flex - MIN. ext - CRUZ R SG - MOD L SG - CRUZ PATIENT DENIED INCREASED BACK AND L HIP PAIN WITH LUMBAR ROM TESTING ALL PLANES BUT MOVEMENTS ARE SLOW AND GUARDED AND SHE REPORTS HER HIP WAS ALREADY HURTING BEFORE DOING THE MVMTS. Core strength: FAIR PALPATION: PATIENT DENIES TENDERNESS WITH PALPATION OF L HIP, L GREATER TROCH REGION, SPINE AND DAKOTA PARASPINALS TODAY. SHE REPORTS PAIN JUST WITH MVMT. STEPS: NO SIGNIFICANT CHANGE SINCE LAST RE-CHECK. Goals Goal 1:: DECREASE C/O L HIP PAIN BY AT LEAST 50% TO EASE ADL'S. Goal Progress: Progressing Goal 2:: IMPROVE SITTING, STANDING, WALKING AND STAIR CLIMBING FUNCTION TO EASE ADL'S. Goal Progress: Goal Met Goal 3:: INDEP HEP Goal Progress: Goal Met Plan Plan: D/C TO HEP. PATIENT AGREEABLE. PCP FOLLOW UP PENDING APPROX 11/18/24. D/C Information d/c sentence: If there are questions or concerns regarding this patient's physical therapy, please feel free to call me at [phone]. Thank you for the referral of this patient. Sincerely, Sapna Redman, PT, Cert MDT Balance/Gait/Functional tests Balance/Special Test Scores Oswestry Low Back Score: 12 Improvement % Improvement: 40
== END 2024-10-28 19:00 | disposition home or self-care (01) ==
LOC: PT 16:00
PROVIDERS: PCP Internal Medicine; Visit Provider Internal Medicine
DX: M25.552 Pain in left hip (principal); M54.50 Low back pain, unspecified
CPT/HCPCS: 97035; 97110; 97162; 97530

== ENCOUNTER → 2025-01-27 | Outpatient (CLI) | payer MEDICAID, SELFPAY | END | disposition home or self-care (01) | LOC: OPUS 13:45 | PROVIDERS: PCP Internal Medicine; Referring Provider Surgery; Visit Provider Surgery | DX: E04.1 Nontoxic single thyroid nodule (principal) | CPT/HCPCS: 76536 ==

== ENCOUNTER → 2025-02-06 | Outpatient (CLI) | payer MEDICAID, SELFPAY ==
[2025-02-06 13:12] LABS: Creatinine, Urine (random) 119.00 mg/dL (28.00-217.00); Microalbumin,Random Urine 38.4 mg/L (<20 mg/L)
[2025-02-06 13:19] LABS: AST(SGOT) 25 U/L (<=31); Alanine Aminotransfer ALT/SGPT 18 U/L (<=34); Albumin, Serum 4.4 g/dL (3.4-4.8); Alkaline Phosphatase 63 U/L (35-104); Anion Gap 14 (5-15); BUN 19 mg/dL (4-19); BUN/Creat Ratio 34.9 RATIO (10-20); Calcium,Total 9.9 mg/dL (7.6-11.0); Carbon Dioxide 26.4 mmol/L (21.0-32.0); Chloride 99 mmol/L (98-108); Globulin 2.7 g/dL (2.2-4.2); Glucose 125 mg/dL (70-99); Potassium 4.0 mmol/L (3.3-5.1); Vitamin B12 545 pg/mL (180-914); Vitamin D,25 Hydroxy 57.5 ng/mL (30-100)
== END | disposition home or self-care (01) ==
LOC: VSLAB 10:33
PROVIDERS: PCP Nurse Practitioner Family; Visit Provider Nurse Practitioner Family
DX: E11.9 Type 2 diabetes mellitus without complications (principal); E53.8 Deficiency of other specified B group vitamins; E55.9 Vitamin D deficiency, unspecified
CPT/HCPCS: 36415; 80053; 82043; 82306; 82570; 82607; 83036

== ENCOUNTER → 2025-03-04 | Outpatient (CLI) | payer MEDICAID, SELFPAY ==
--- NOTE | 2025-03-04 14:45 | MRI_ITS ---
PROCEDURE: SPINE LUMBAR (ROUTINE) 03/04/2025 REASON FOR EXAM: HIP PAIN TECHNIQUE: SPINE LUMBAR (ROUTINE) COMPARISON: Lumbar spine x-ray, 09/30/2024. FINDINGS: Vertebrae: There are no compression fractures. There is no abnormal signal within the visualized thoracolumbar vertebral bodies. Alignment: There is maintenance of the normal lumbar lordosis. There is no significant scoliosis. Conus Medullaris: The conus medullaris terminates normally at the T12-L1 level. There is moderate degeneration and narrowing of the visualized intervertebral discs, T11-12 through L5-S1. L1-2: There is circumferential disc bulging. There is mild compression of the thecal sac. There is no central canal stenosis, lateral recess stenosis or foraminal narrowing. There is a small Schmorl's node in the superior endplate of L2. L2-3: There is circumferential disc bulging. There is a focal right central disc protrusion. There is bilateral facet arthropathy with ligamentum flavum bulging. There is mild compression of the thecal sac without central canal stenosis, lateral recess stenosis or foraminal narrowing. L3-4: There is a broad-based central disc protrusion. There is bilateral facet arthropathy with ligamentum flavum bulging. There is compression of the thecal sac without central canal stenosis. There is mild lateral recess stenosis and foraminal narrowing, bilaterally. L4-5: There is a broad-based left central and left lateral recess disc protrusion. There is bilateral facet arthropathy with ligamentum flavum bulging. There is compression of the left side of the thecal sac and posterior displacement of the left L5 nerve root. There is moderate foraminal narrowing on the left. L5-S1: There is a broad-based left central to left foraminal disc protrusion. There is a superimposed left foraminal disc extrusion, measuring 10 mm in transverse dimension, 10 mm in AP dimension and 9 mm in vertical dimension. There is compression of the left side of the thecal sac, posterior displacement of the left S1 nerve root and moderate foraminal narrowing. Sacrum: Unremarkable. The paravertebral soft tissues are unremarkable. MRI/Spine Lumbar (Routine) IMPRESSION: 1. Degenerative disc disease, T11-12 through L5-S1. 2. Bilateral facet arthropathy with ligamentum bulging throughout the lumbar s pine. 3. Left disc protrusion with superimposed left foraminal disc extrusion, at L5 -S1. 4. Left disc protrusion, L4-5. 5. Displacement of the left L5 and S1 nerve roots and moderate left foraminal narrowing L4-5 and L5-S1. Reading Location: [place] [id number]
--- NOTE | 2025-03-04 15:10 | MRI_ITS ---
PROCEDURE: BRAIN W/WO CONTRAST 03/04/2025 REASON FOR EXAM: TINNITUS, ASYMETRIC HEARING LOSS TECHNIQUE: BRAIN W/WO CONTRAST Multiplanar and multisequence images were obtained. Additional high-resolution pre and post T1 weighted axial and coronal projection images were obtained through the cerebellar pontine angle/internal auditory canal region. CONTRAST: Clariscan VOLUME: 15 mL COMPARISON: None. FINDINGS: There are no masses or areas of abnormal contrast enhancement in either cerebellar pontine angle or internal auditory canal. There is no abnormal intracranial contrast enhancement. There are a few scattered foci of abnormal periventricular and subcortical white matter signal in both cerebral hemispheres, consistent with chronic ischemic white matter disease. There is a normal sulcal pattern and gyral configuration. There is no evidence of acute intracranial hemorrhage or infarction. The smart-white differentiation is well preserved. There is no evidence of restricted diffusion. The ventricles and basilar cisterns are normal. There are normal flow voids demonstrated in the recognized intracranial vessels. The cerebellum and brainstem are unremarkable. The craniovertebral junction is normal. The sella and suprasellar regions are normal. The orbits and retro-orbital regions are unremarkable. The nasal septum is midline. The paranasal sinuses are clear. The mastoid air cells are clear. There is normal bone marrow signal in the skull base and calvarium. MRI/Brain W/WO Contrast IMPRESSION: 1. No abnormal mass or abnormal contrast enhancement in either internal audito ry canal or cerebellopontine angle. 2. There are few foci of abnormal periventricular and subcortical white matter signal in both cerebral hemispheres consistent with chronic ischemic white matter disease. Reading Location: [place] [id number]
== END | disposition home or self-care (01) ==
LOC: OPMRI 14:42
PROVIDERS: PCP Nurse Practitioner Family; Referring Provider Otolaryngology; Visit Provider Otolaryngology
DX: H93.13 Tinnitus, bilateral (principal); H90.3 Sensorineural hearing loss, bilateral; M25.559 Pain in unspecified hip
CPT/HCPCS: 70553; 72148; A9575

== ENCOUNTER → 2025-04-15 | Outpatient (CLI) | payer MEDICAID, SELFPAY ==
--- NOTE | 2025-04-15 16:19 | BI_ITS ---
EXAM: SCRN MAMM (CAD)W/SAIRA BILAT DATE: 04/15/2025 CLINICAL HISTORY: F, Age 60 y/o , SCREENING Aunt with breast cancer. TECHNIQUE: Procedure Code: [id number] Modality: MG Procedure: SCRN MAMM (CAD)W/SAIRA BILAT COMPARISON: Prior exam(s) dated March 18, 2024. FINDINGS: TISSUE DENSITY: The breasts are almost entirely fatty. Bilateral Breast Mammographic Findings: No significant masses, calcifications or other abnormalities are identified. No suspicious masses, areas of developing architectural distortion, or suspicious calcifications. There has been no significant interval change. BI/SCRN MAMM (CAD)W/SAIRA BILAT IMPRESSION: Stable bilateral screening mammogram. OVERALL FINAL ASSESSMENT BI-RADS 1: NEGATIVE. RECOMMENDATION: Routine annual follow-up in 1 Year Additional Recommendation none A letter with findings and recommendations will be mailed to the patient. Reading Location: [place] [id number]
== END | disposition home or self-care (01) ==
LOC: OPBI 16:18
PROVIDERS: PCP Nurse Practitioner Family; Referring Provider Nurse Practitioner Family; Visit Provider Nurse Practitioner Family
DX: Z12.31 Encounter for screening mammogram for malignant neoplasm of breast (principal); Z80.3 Family history of malignant neoplasm of breast
CPT/HCPCS: 77063; 77067

== ENCOUNTER → 2025-05-02 | Outpatient (CLI) | payer MEDICAID, SELFPAY ==
[2025-05-02 11:47] LABS: Cholesterol 201 mg/dL (<=200); Low Density Lipoprotein Calc. 121 mg/dL; Triglycerides 138 mg/dL; Very Low Density Lipoprotein 28 mg/dL (5-40); cholesterol:hdl ratio screen 3.85
[2025-05-02 12:04] LABS: AST(SGOT) 27 U/L (<=31); Alanine Aminotransfer ALT/SGPT 27 U/L (<=34); Albumin, Serum 4.2 g/dL (3.4-4.8); Alkaline Phosphatase 76 U/L (35-104); Anion Gap 9 (5-15); BUN 11 mg/dL (4-19); BUN/Creat Ratio 22.2 RATIO (10-20); Calcium,Total 9.3 mg/dL (7.6-11.0); Carbon Dioxide 28.6 mmol/L (21.0-32.0); Chloride 103 mmol/L (98-108); Globulin 2.9 g/dL (2.2-4.2); Glucose 124 mg/dL (70-99); Potassium 4.0 mmol/L (3.3-5.1)
== END | disposition home or self-care (01) ==
LOC: LAB 11:08
PROVIDERS: PCP Nurse Practitioner Family; Referring Provider Nurse Practitioner Family; Visit Provider Nurse Practitioner Family
DX: E11.9 Type 2 diabetes mellitus without complications (principal); Z13.220 Encounter for screening for lipoid disorders
CPT/HCPCS: 36415; 80053; 80061; 83036

== ENCOUNTER → 2025-05-12 | Outpatient (CLI) | payer MEDICAID, SELFPAY ==
[2025-05-12 17:16] LABS: Free T3 2.8 pg/mL (2.18-3.98)
== END | disposition home or self-care (01) ==
LOC: VSLAB 15:43
PROVIDERS: PCP Nurse Practitioner Family; Visit Provider Nurse Practitioner Family
DX: L65.9 Nonscarring hair loss, unspecified (principal)
CPT/HCPCS: 36415; 84439; 84443; 84481; 86376

== ENCOUNTER → 2025-05-26 | Outpatient (CLI) | payer MEDICAID, SELFPAY | END | disposition home or self-care (01) | PROVIDERS: PCP Nurse Practitioner Family; Referring Provider Nurse Practitioner Family; Visit Provider Nurse Practitioner Family | DX: R06.83 Snoring (principal); M51.379 Other intervertebral disc degeneration, lumbosacral region without mention of lumbar back pain or lower extremity pain | CPT/HCPCS: 95806; 97110 ==

== ENCOUNTER → 2025-06-13 | Outpatient (CLI) | payer MEDICAID, SELFPAY ==
[2025-06-17 18:09] LABS: Pancreatic Elastase, Fecal 347 (>200)
[2025-06-18 09:09] LABS: Calprotectin, Stool 18 ug/g (0-120)
== END | disposition home or self-care (01) ==
LOC: LABSPEC 12:17
PROVIDERS: PCP Nurse Practitioner Family; Referring Provider Student in an Organized Health Care Education/Training Program; Visit Provider Student in an Organized Health Care Education/Training Program
DX: K58.9 Irritable bowel syndrome, unspecified (principal); R15.2 Fecal urgency
CPT/HCPCS: 82653; 83993; 87177; 87209; 87329; 87493; 87506

== ENCOUNTER → 2025-06-23 | Outpatient (CLI) | payer MEDICAID, SELFPAY ==
--- NOTE | 2025-06-23 13:30 | US_ITS ---
PROCEDURE: THYROID 06/23/2025 REASON FOR EXAM: THYROID NODULE TECHNIQUE: Procedure Code: USTHY Modality: US Procedure: THYROID COMPARISON: 01/27/2025 FINDINGS: Right thyroid lobe size: 6.1 x 1.9 x 1.4 cm (was 5.7 x 1.8 x 1.4 cm). -lower pole, 15 x 15 x 7 mm (was 1.6 x 1.6 x 1.1 cm), mixed cystic and solid, with a smooth margin, TR 3. -3 nodules which were measured previously, have an average diameter of less than 5 mm, and require no further follow-up. Left thyroid lobe size: 5.4 x 1.5 x 1.5 cm (was 5.1 x 1.6 x 1.5 cm). -lower pole, 12 x 10 x 5 mm (was 13 x 8 x 5 mm), mixed cystic and solid, with a smooth margin, TR 3. Isthmus: 6 mm (was 7 mm). -central, 20 x 20 x 9 mm (was 20 x 16 x 12 mm), solid, heterogeneous, with a smooth margin, TR 3 US/Thyroid IMPRESSION: Follow-up TR 3 nodules in 1 year. RECOMMENDATION: Based on most suspicious nodule. Nodule size = largest diameter Only evaluate nodule if =>5 mm. Growth > 20% in 2 dimensions = worsening. Follow up to 4 nodules. Recommend biopsy for no more than 2 nodules. Reading Location: [id number]
== END | disposition home or self-care (01) ==
LOC: US 13:29
PROVIDERS: PCP Nurse Practitioner Family; Referring Provider Surgery; Visit Provider Surgery
DX: R93.89 Abnormal findings on diagnostic imaging of other specified body structures (principal)
CPT/HCPCS: 76536

== ENCOUNTER → 2025-06-25 | Outpatient (CLI) | payer MEDICAID, SELFPAY | END | disposition home or self-care (01) | PROVIDERS: PCP Nurse Practitioner Family; Referring Provider Otolaryngology; Visit Provider Otolaryngology | DX: T78.40XA Allergy, unspecified, initial encounter (principal) | CPT/HCPCS: 36415 ==

== ENCOUNTER 2025-07-01 14:00 | Outpatient (RCR) | payer MEDICAID, SELFPAY ==
--- NOTE | 2025-03-20 18:58 | HP.PTEVAL_ITS ---
Patient's Visit Information Visit Information Visit Information: RAMSEY RODRIGUEZ is a 60 year old F referred to Physical Therapy by Dr. Katelyn Perkins DC with a diagnosis of L/S DDD. Date of Evaluation: 03/20/25 Physical Therapist: Jason Shepard, PT, ATC Visit Plan Frequency: 2x /Week Duration: 4-6 Weeks Plan: Postural edu, Seated L/S flexion ex's, seated and standing core stab ex's, and HEP Subjective Subjective: Pt reports she has had constant LBP for many years. Pt notes she recently had an MRI of her Lumbar spine which revealed DDD. Pt notes she has been attending a pain doctor since September of this year. Pt has had cortisone injections in her hip which only made her very sick. Pt reports she used to have R LE radiculopathy, but now the pain has moved to her L glute. Pt has 32 steps to get into her apartment which really tends to increase her pain. Pt reports prolonged standing also increases her pain. Pt notes that her LB feels really t ight right now. Pt is currently receiving spiritual care coordinator which she believes is helping her, but she is running out of appointments. Pt reports she has tingling on the top of her R foot at this time, but denies any other B LE tingling or numbness. Pt notes sleep difficulty at this time secondary to pain. LBP is 4/10 at this time but notes it increases to 6/10 at worst. Pain LBP: Pain Intensity (Out of 10): 4 Pain Intensity Range: 6 Objective Objective: Neuro: B LE sensation is WNL to light touch. MMT: L hip flexion and knee flexion 4-/5. All other B LE MMT 5/5 throughout ROM: Pt is severely limited with extension. Pt is moderately limited with SB. Flex is WNL. Repeated movements: Unable to attempt RFIS or SALVADOR secondary to dizziness. PRone prop increased LBP significantly. SKTC/DKTC 10 sec x 3 ea increased LBP because of table. seated flexion 10x2 Balance/Special Test Scores Oswestry Low Back Score: 31 Goals Goal 1:: Decreasse LBP x 50% to aid with sleep Goal Time Frame: 4-6 Weeks Goal 2:: Increase L/S ROm x 1 grade to aid with IADL's Goal Time Frame: 4-6 Weeks Goal 3:: Pt will be able to negotiate 32 steps without increase in LBP Goal Time Frame: 4-6 Weeks Goal 4:: I with HEP Goal Time Frame: 4-6 Weeks Rehabilitation Potential Physical Therapy Diagnosis: Pt has LBP, limited L/S ROM, and difficulty with IADL's secondary to DDD Rehabilitation Potential: Good Anticipated Interventions Patient/Client Instruction: Educate patient on: Condition and Plan of Care For the Purpose of:: To improve self management Therapeutic Exercise to Include: Strength training, Body mechanics, Postural training, Flexibilty training, Active ROM and Dynamic Lumbar Stabilization For the Purpose of:: To decrease pain, To increase ROM and To improve muscle performance and motor function Text: Thank you for the opportunity to evaluate your patient. For Medicare and Medicare HMO plans, please review the plan of care and approve it. It will need to be FAXED BACK to us at [phone] for Medicare purposes. For Medicare only, by signing this I certify the plan of care. Please let me know if there are questions or concerns regarding this plan of care. Physician Signature: Date:
--- NOTE | 2025-04-18 14:34 | HP.PTREVAL_ITS ---
Re-Evaluation Intro: Dr. Katelyn Perkins, CLAUDE, It has been my pleasure to treat RAMSEY RODRIGUEZ over the last 9 visits for L/S DDD. Please see the progress note below for an update on the physical therapy plan of care! Subjective Subjective: I am getting better, but I know that i need to continue Objective Objective/Function: LBP ranges from 5-8/10 Lumbar spine flexion ROM are now WNL. All other ranges are moderately limited Pt is able to negotiate 30 stairs at this time, but her LBP increases to 6-7/10. Pt is still very limited with IADL's and stair negotiation secondary to LBP Plan Plan Plan: 04/18/25- Cont with Postural edu, Seated L/S flexion ex's, seated and standing core stab ex's, and HEP Balance/Gait/Functional tests Balance/Special Test Scores Oswestry Low Back Score: 31 Goals Goals Goal 1:: Decreasse LBP x 50% to aid with sleep Goal Time Frame: 4-6 Weeks Goal Progress: Progressing Goal 2:: Increase L/S ROm x 1 grade to aid with IADL's Goal Time Frame: 4-6 Weeks Goal Progress: Progressing Goal 3:: Pt will be able to negotiate 32 steps without increase in LBP Goal Time Frame: 4-6 Weeks Goal Progress: Progressing Goal 4:: I with HEP Goal Time Frame: 4-6 Weeks Anticipated Interventions Anticipated Interventions Patient/Client Instruction: Educate patient on: Condition and Plan of Care For the Purpose of:: To improve self management Therapeutic Exercise to Include: Strength training, Body mechanics, Postural t raining, Flexibilty training, Active ROM and Dynamic Lumbar Stabilization For the Purpose of:: To decrease pain, To increase ROM and To improve muscle performance and motor function Re-Evaluation Ending Re-evaluation ending: Please do not hesitate to contact me at [phone] by phone or if you have questions or concerns regarding this new plan of care! Sincerely, Jason Shepard, PT, ATC
--- NOTE | 2025-04-30 15:10 | HP.PTREVAL ---
Re-Evaluation Intro: Dr. Katelyn Perkins, CLAUDE, It has been my pleasure to treat RAMSEY RODRIGUEZ over the last 13 visits for L/S DDD. Please see the progress note below for an update on the physical therapy plan of care! Subjective Subjective: I am getting better, but I am not doing enough at home Objective Objective/Function: LBP ranges from 5-7/10 Pt is I with HEP Pt is minimally limited with ext ROM at this time. All other ranges are WNL Pt is able to negotiate 32 steps, but needs 2 handrails and breaks in between. Pt also experiences increase pain with negotiation. Pt is improving at this time with stair negotiation and mobility, but LBP continues to limit her mobility and daily IADL's Plan Plan Plan: Attempt to get 8 more PT visitis to focus on lumbar stabilization ex's and LE strengthening to aid with stair negotiation and daily activities. Balance/Gait/Functional tests Balance/Special Test Scores Oswestry Low Back Score: 19 Goals Goals Goal 1:: Decreasse LBP x 50% to aid with sleep Goal Time Frame: 4-6 Weeks Goal Progress: Progressing Goal 2:: Increase L/S ROm x 1 grade to aid with IADL's Goal Time Frame: 4-6 Weeks Goal Progress: Progressing Goal 3:: Pt will be able to negotiate 32 steps without increase in LBP Goal Time Frame: 4-6 Weeks Goal Progress: Progressing Goal 4:: I with HEP Goal Time Frame: 4-6 Weeks Goal Progress: Goal Met Anticipated Interventions Anticipated Interventions Patient/Client Instruction: Educate patient on: Condition and Plan of Care For the Purpose of:: To improve self management Therapeutic Exercise to Include: Strength training, Body mechanics, Postural training, Flexibilty training, Active ROM and Dynamic Lumbar Stabilization For the Purpose of:: To decrease pain, To increase ROM and To improve muscle performance and motor function Re-Evaluation Ending Re-evaluation ending: Please do not hesitate to contact me at [phone] by phone or if you have questions or concerns regarding this new plan of care! Sincerely, Jason Shepard, PT, ATC
--- NOTE | 2025-06-03 16:59 | HP.PTREVAL_ITS ---
Re-Evaluation Intro: Dr. Katelyn Perkins, CLAUDE, It has been my pleasure to treat RAMSEY RODRIGUEZ over the last 21 visits for L/S DDD. Please see the progress note below for an update on the physical therapy plan of care! Subjective Subjective: I am getting better, but I have ways to go Objective Objective/Function: Pt is able to negotiate 32 stairs L/S ext ROM still mod limited Pt is I with HEP, but lacks consistently Pt is progressing well at this time, but continues to need skilled PT to aid with decreasing LBP for functional activity. Plan Plan Plan: 06/03/25- focus on lumbar stabilization ex's and LE strengthening to aid with stair negotiation and daily activities. Balance/Gait/Functional tests Balance/Special Test Scores Oswestry Low Back Score: 23 Goals Goals Goal 1:: Decreasse LBP x 50% to aid with sleep Goal Time Frame: 4-6 Weeks Goal Progress: Progressing Goal 2:: Increase L/S ROm x 1 grade to aid with IADL's Goal Time Frame: 4-6 Weeks Goal Progress: Progressing Goal 3:: Pt will be able to negotiate 32 steps without increase in LBP Goal Time Frame: 4-6 Weeks Goal Progress: Progressing Goal 4:: I with HEP Goal Time Frame: 4-6 Weeks Goal Progress: Goal Met Anticipated Interventions Anticipated Interventions Patient/Client Instruction: Educate patient on: Condition and Plan of Care For the Purpose of:: To improve self management Therapeutic Exercise to Include: Strength training, Body mechanics, Postural training, Flexibilty training, Active ROM and Dynamic Lumbar Stabilization For the Purpose of:: To decrease pain, To increase ROM and To improve muscle per formance and motor function Re-Evaluation Ending Re-evaluation ending: Please do not hesitate to contact me at [phone] by phone or if you have questions or concerns regarding this new plan of care! Sincerely, Jason Shepard, PT, ATC
--- NOTE | 2025-07-01 15:09 | HP.PTDCSUM ---
Discharge Summary D/C summary: It has been my pleasure to treat RAMSEY RODRIGUEZ referred by Dr. Katelyn Perkins DC, with the diagnosis of L/S DDD for a total of 29 visit(s). Discharge Date: Please see the following information for a summary of their discharge status. Subjective Subjective: Pt reports she doesnt perform her ex's as often as she should. Pain LBP: Pain Intensity (Out of 10): 5 B arms: Pain Intensity (Out of 10): 0 Head: Pain Intensity (Out of 10): Unrated Overall Improvement % Improvement: 50 Objective Objective/Function: Neck pain ranges from 5-6/10 Pt is still moderately limited with lumbar spine extension. All other ranges are WNL Pt is I with HEP Pt is able to negotiate stairs one step at a time. Goals Goal 1:: Decreasse LBP x 50% to aid with sleep Goal Progress: Progressing Goal 2:: Increase L/S ROm x 1 grade to aid with IADL's Goal Progress: Goal Met Goal 3:: Pt will be able to negotiate 32 steps without increase in LBP Goal Progress: Goal Met Goal 4:: I with HEP Goal Progress: Goal Met Plan Plan: Discontinue to hEP D/C Information d/c sentence: If there are questions or concerns regarding this patient's physical therapy, please feel free to call me at [phone]. Thank you for the referral of this patient. Sincerely, Jason Shepard, PT, ATC Balance/Gait/Functional tests Balance/Special Test Scores Oswestry Low Back Score: 23 Improvement % Improvement: 50
== END 2025-07-01 19:00 | disposition home or self-care (01) ==
LOC: PT 14:00
PROVIDERS: PCP Nurse Practitioner Family; Referring Provider Chiropractor; Visit Provider Chiropractor
DX: M51.379 Other intervertebral disc degeneration, lumbosacral region without mention of lumbar back pain or lower extremity pain (principal)
CPT/HCPCS: 97110; 97161; 97530